=== PATIENT | female | born 2000 | race Caucasian/White ===

== ENCOUNTER 2021-11-27 14:52 | Emergency (ER) | payer OTHER ==
--- OUTSIDE RECORDS SUMMARY | 2021-11-27 14:55 | XMS REPORT | Continuity of Care Document ---
:2000 Author Organization [facility] t Address [address] [place] [address] Care Team Providers Name Role Phone LACIE SUTHERLAND Primary Care Physician Unavailable nathan Attending Clinician Unavailable VENTURA BARRAZA Attending Clinician Unavailable Chi Constantino Attending Clinician Unavailable ALMA SUTHERLAND Attending Clinician Unavailable Alma Sutherland DO Attending Clinician BETH RENEE Attending Clinician Unavailable Mahendra Johnson MD Attending Clinician Stephany Dee Attending Clinician Unavailable Mirian Summers Attending Clinician Unavailable Cortez Salomon Attending Clinician [phone] Sarahi Platt Attending Clinician Unavailable MAL REBOLLAR Attending Clinician Unavailable Chi Constantino Admitting Clinician Unavailable Cortez Salomon Unavailable [phone] Payers Payer Name Policy Type Policy Number Effective Date Expiration Date S chandra [facility] [id number] 2020 00:00:00 [facility] P [id number] COMM PLAN - MANAGED MEDICAID Problems Condition Condition Condition Status Onset Resolution Last Treating Co mments Source Name Details Category Date Date Treatment Clinician Date Supervisio Supervisio Disease Active U nivers n of other n of other 8- it y of normal normal 00:00: [place] 00 [facility] 13 weeks 13 weeks Disease Active Unive rs gestation gestation 8-26 ity of of of 00:00: [place] 00 [facility] Sasha of Condition Active 2020-01-05 Matias Salomon vagina 12-30 16:24:47 Cortez Bergeri 00:00: ty 00 Health Std Condition Active 2020-01-05 Melissa Salomon exposure 12-30 16:24:47 Cortez Commu ni 00:00: ty 00 Health Dysuria Condition Active 2020-01-05 Gilda Salomon egacy 12-30 16:24:47 Cortez Bergeri 00:00: ty 00 Health Depo Condition Active 2020-01-05 Melissa Salomon Provera 12-30 16:24:47 Cortez Commun i contracept 00:00: ty john, 00 Health initial prescripti on Overweight Condition Active 2020-01-05 Matias Salomon 12-30 16:24:47 Cortez Bergeri 00:00: ty 00 Health ASCUS with ASCUS with Disease Active Overview : Univers positive positive Formattin ity of high risk high risk g of this [place] HPV HPV note Medical cervical cervical might be Bran ch different from the original. Repeat postpartu m ASCUS with ASCUS with Disease Active Overview : Univers positive positive Formattin ity of high risk high risk g of this [place] HPV HPV note Medical cervical cervical might be Bran ch different from the original. Repeat postpartu m Allergies, Adverse Reactions, Alerts Allergy Allergy Status Severity Reaction(s) Onset Inactive Treating Comm ents Source Name Type Date Date Clinician No Known DA Active U 2020-04 [facility] All[facility]ie 2-30 [place] [facility] 00:[facility]: Health [address] NO KNOWN Drug Active Univers ALLERGIE Class ity of S [facility] Social History Social Habit Start Date Stop Date Quantity Comments Source ASSERTION 2020-09-21 University of 00:00:00 [facility] Exposure to Not sure University of SARS-CoV-2 [facility] (event) Branch Tobacco use and 2020-12-09 2020-12-09 Never used Universit y of exposure 00:00:00 00:00:00 [facility] Alcohol intake 2020-12-09 2020-12-09 Lifetime University of 00:00:00 00:00:00 non-drinker [place] [facility] (finding) Branch time of call 2020-03-01 2020-03-01 03/01/2020 11:52 [facility] 11:51:55 11:51:55 AM Health Ever had sexual 2019-12-31 2019-12-31 Yes [facility]ity intercourse? 11:30:08 11:30:08 Health drug use, illicit 2019-12-31 2019-12-31 Never [facility] 11:30:08 11:30:08 Health alcohol use 2019-12-31 2019-12-31 Currently [facility] ity 11:30:08 11:30:08 Health is there any 2019-12-31 2019-12-31 No [facility] nity chance that you 11:30:08 11:30:08 Health could be ? if the patient is 2019-12-31 2019-12-31 No [facility] using/has used a 11:30:08 11:30:08 Health vaping item, Current, Former, Never Used, Not asked condom use 2019-12-31 2019-12-31 Sometimes [facility] ty 11:30:08 11:30:08 Health Sex Assigned At [birth year] Universit y of 00:00:00 00:00:00 [facility] Smoking Status Start Date Stop Date Source Never smoker [facility] Branch Medications Ordered Filled Start Stop Current Ordering Indication Dosage Frequency Signature Comments Components Source Medication Medication Date Date Medication? Clinician (SIG) Name Name pramoxine 2020-04 Yes [id number] Insert Un eileen (PROCTOFOAM 1-13 into ity of ) 1 % foam 00:00: rectum [place] 00 every 2 Medical (two) Branch hours as needed for Rectal itching/pa in. Yes Take by [facility] vit 8-26 mouth. ity of calc,iron,f 09:25: [place] [address] Medical ( Branch VITAMIN ORAL) Yes Take by [employer] vit 8-26 mouth. ity of calc,iron,f 09:25: [place] [address] Medical ( Branch VITAMIN ORAL) (NYSTATIN) Yes Cortez apply to [facility] [phone] Aime Bergeri UNIT/GM 00:00: Twice a ty CREA 00 Day x 7 Health days DIFLUCAN 2020-0 Yes [place]ez 1 tab By [facility] (FLUCONAZOL 12-30 Salomon Mouth x 1 C ommuni E) 150 MG 00:00: for ty TABS 00 vaginal Health yeast PYRIDIUM 2020-0 Yes Cortez 1{Table 3xD 1 tab By [facility] (PHENAZOPYR 9-16 Salomon t} Mouth Commu ni IDINE HCL) 00:00: Three ty 200 MG TABS 00 Times a Healt h Day x 2 days KEFLEX 2020-0 Yes Cortez 1 tab By [facility] (CEPHALEXIN 12-30 Salomon Mouth Commu ni ) 500 MG 00:00: Three ty CAPS 00 Times a Health Day x 5 days DEPO-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 Heart rate 2021-02-27 00:28:00 101 /min [facility] Body temperature 2021-02-27 00:28:00 36.56 Analilia [facility] Respiratory rate 2021-02-27 00:28:00 18 /min [facility] Body weight 2021-02-27 00:28:00 68.04 kg [facility] BMI 2021-02-27 00:28:00 29.29 kg/m2 [facility] Oxygen saturation in 2021-02-27 00:28:00 100 /min [facility] Arterial blood by [facility] Pulse oximetry Branch Systolic blood 2020-12-27 05:17:55 104 mm[Hg] [facility] Diastolic blood 2020-12-27 05:17:55 66 mm[Hg] [facility] 2020-12-27 05:17:55 106 /min [facility] Body temperature 2020-12-27 05:17:55 37 Analilia [facility] Respiratory rate 2020-12-27 05:17:55 18 /min [facility] Oxygen saturation in 2020-12-27 05:17:55 98 /min [facility] blood by [facility] Pulse oximetry Branch Body height 2020-12-27 02:31:56 152.4 cm [facility] Body weight 2020-12-27 02:31:56 63.504 kg [facility] BMI 2020-12-27 02:31:56 27.34 kg/m2 [facility] blood pressure, 2019-12-31 11:30:08 72 mm[Hg] [facility] diastolic Health blood pressure, 2019-12-31 11:30:08 105 mm[Hg] [facility] systolic Health oxygen saturation, 2019-12-31 11:30:08 98 /min Melissa marquez [facility] oximetry Health pulse rate 2019-12-31 11:30:08 78 /min [facility] temperature site 2019-12-31 11:30:08 oral [facility] Health temperature E&M 2019-12-31 11:30:08 98.2 [degF] [facility] Health weight E&M 2019-12-31 11:30:08 139.13 [lb_av] [facility] weight in [facility] 2019-12-31 11:30:08 63.24 kg L egacy [facility]M Health height in 2019-12-31 11:30:08 152.40 [facility] Procedures Procedure Date / Time Performing Clinician Source Performed [id number] 2021-06-02 00:00:00 DUOCA [facility] NOTICE OF PRIVACY 2021-02-27 00:02:02 Doctor Unassigned, No [facility] PRACTICES Name Medical Branch CONSENT/REFUSAL FOR 2021-02-27 00:00:13 Doctor Unassigned, No [facility] [place] [place] [facility] AND TREATMENT Name Medical Branch CBC WITH DIFF 2020-12-27 03:54:00 Mahendra Johnson Mathews o f [facility] ABORH CONFIRMATION (LAB 2020-12-27 03:50:00 Mahendra Johnson [facility] ONLY) Medical Branch CT CERVICAL SPINE WO 2020-12-27 03:48:43 Mahendra Johnson [facility] CONTRAST [facility] CT THORACIC SPINE WO 2020-12-27 03:48:43 Mahendra Johnson [facility] HB ABO GROUPING 2020-12-27 03:15:00 Mahendra Johnson [facility] URINALYSIS 2020-12-27 03:12:00 Mahendra Johnson [facility] COVID-19 (ID NOW RAPID 2020-12-27 03:12:00 Mahendra Johnson [facility] TESTING) Medical Branch LIPASE 2020-12-27 02:44:00 Mahendra Johnson [facility] COMP. METABOLIC PANEL 2020-12-27 02:44:00 Mahendra Johnson [facility] ([id number]) [facility] PROTHROMBIN TIME / INR 2020-12-27 02:44:00 Mahendra Johnson [facility] ACTIVATED PARTIAL 2020-12-27 02:44:00 Alex Mahendra [facility] THRMPLAS RADHA [facility] Encounters Start End Encounter Admission Attending Care Care Encounter Source Date/Time Date/Time Type Type Clinicians Facility Department ID 2021-02-[address] [facility] [id number] Univers 22:07:35 [facility] 2021-01-30 Outpatient nathan [facility] [id number] [facility] 14:19:11 [id number] [facility] 2021-01-27 Outpatient [facility] [id number] [facility] 19:49:23 [id number] [facility] 2021-09-05 2021-09-05 Outpatient VENTURA BARRAZA [id number] Elyssa 14:30:00 14:30:00 Seybol d 2021-06-01 2021-06-04 Inpatient EM Xydas, HCANW OBPP [id number] [facility] 22:58:00 12:45:00 Chi [id number] [facility] 2021-06-01 2021-06-01 Inpatient EM Xydas, HCANW OBPP [id number] [facility] 22:58:00 22:58:00 Chi 18 [facility] 2021-04-14 2021-04-14 Emergency EM Dougie, HCANW LORRAINE [id number] [facility] 10:58:00 13:06:00 Chi [id number] [facility] are [facility] 2021-02-26 2021-02-26 Emergency X ENA [facility] ERT [id number] Univers 18:21:00 18:57:[address] [facility] 2021-02-26 2021-02-26 [facility] [id number] Univers 18:21:00 18:57:00 Alma WHITE [id number] ity [facility] [id number] [facility] [id number] [address] 2021-01-28 2021-01-28 Outpatient R [facility] [id number] Univers 09:00:00 09:00:[id number] [facility] 2021-01-28 2021-01-28 Outpatient P [facility] [id number] Univers 09:00:00 [facility] 2021-01-07 2021-01-07 [id number] Univers 08:15:00 08:15:[id number] [facility] 2020-12-26 2020-12-27 Emergency [facility] [id number] Univers 21:31:00 01:31:00 Mahendra White [id number] i ty [facility] [id number] [facility] [id number] [address] 2020-12-13 2020-12-13 Outpatient R [facility] [id number] Univers 08:15:00 08:15:00 [id number] [facility] 2020-12-13 2020-12-13 Outpatient R [facility] [id number] Univers 08:15:00 08:15:00 ity [facility] 2020-12-09 2020-12-09 Outpatient [facility] [id number] Univers 09:30:00 09:30:00 BETH meseretdarrell [facility] 2020-03-01 2020-03-01 Office ANGELICA Dee Encounter / Legacy 00:00:00 00:00:00 Visit Stephany [id number] Co mmuni [id number] Health 2020-03-01 2020-03-01 Office Stephany Dee [facility] Encounter/ Legacy 00:00:00 00:00:00 Visit Mirian Summers [id number] Communi [id number] ty Health 2019-12-31 2019-12-31 Office ANGELICA Salomon Encounter/ Legacy 00:00:00 00:00:00 Visit Cortez [id number] Com carmnecita [id number] ty Health 2019-12-31 2019-12-31 Office ANGELICA Salomon Encounter/ Legacy 00:00:00 00:00:00 Visit Cortez [id number] Com carmencita [id number] [facility] 2019-12-31 2019-12-31 Office ANGELICA Salomon Encounter/ Legacy 00:00:00 00:00:00 Visit Cortez [id number] Com carmencita [id number] ty [facility] 2019-12-31 2019-12-31 Office Cortez Salomon [facility] En counter/ Legacy 00:00:00 00:00:00 Visit Sarahi Platt [id number] Communi [id number] [facility] 2019-06-25 2019-06-26 Emergency E [facility] [id number] [facility] 19:18:00 00:21:00 MAL 2019-05-07 2019-05-07 Emergency E [id number] 22:18:00 22:18:00 l Reginaldo Mendez l Results Test Description Test Time Test Comments Results Result Comments Source CBC W/AUTO DIFF 2021-06-03 05:38:00 Test Item Value Reference Range Interpretation Comme nts WHITE BLOOD CELL (test code = WBC) 12.3 x10 3/uL 3.2-11.5 H RED BLOOD CELL (test code = RBC) 2.91 x10(6)/m 3.70-5.10 L HEMOGLOBIN (test code = HGB) 8.0 g/dL 12.0-15.0 L HEMATOCRIT (test code = HCT) 24.7 % 35.7-44.8 L MEAN CELL VOLUME (test code = MCV) 85 fL 80-100 N MEAN CELL HGB (test code = MCH) 27.5 pg 26.2-33.8 N MEAN CELL HGB CONCENTRATION (test code = MCHC) 32.4 g/dL 30.0-34 .0 N RED CELL DISTRIBUTION WIDTH (test code = RDW) 16.1 % 11.3-14. 5 H PLATELET COUNT (test code = PLT) 143 x10 3/uL 130-408 N MEAN PLATELET VOLUME (test code = MPV) 12.1 fL 8.6-12.6 N NEUTROPHIL % (test code = NT%) 76.2 % 40.0-70.0 H IMMATURE GRANULOCYTE % (test code = IG%) 1.0 % 0.0-2.0 N LYMPHOCYTE % (test code = LY%) 14.2 % 20-40 L MONOCYTE % (test code = MO%) 7.4 % 1-10 N EOSINOPHIL % (test code = EO%) 1.0 % 0.0-5.0 N BASOPHIL % (test code = BA%) 0.2 % 0.0-1.0 N NUCLEATED RBC % (test code = NRBC%) 0.0 % 0.0-0.9 N NEUTROPHIL # (test code = NT#) 9.4 x10 3/uL 1.6-7.2 H LYMPHOCYTE # (test code = LY#) 1.75 x10 3/uL 1.1-2.7 N MONOCYTE # (test code = MO#) 0.9 x10 3/uL 0.3-0.8 H EOSINOPHIL # (test code = EO#) 0.1 x10 3/uL 0.0-0.5 N BASOPHIL # (test code = BA#) 0.0 x10 3/uL 0.0-0.1 N RAPID PLASMA [id number] 07:13:00 Test Item Value Reference Range Interpretation Comments RAPID PLASMA REAGIN (test code = NEGATIVE NEGATIVE RPR) AG HEPATITIS B [id number] 04:21:00 Test Item Value Reference Range Interpretation Comments AG HEPATITIS B SURFACE (test code = NEGATIVE NEGATIVE HBSAG) AB HIV 1 04:21:00 Test Item Value Reference Range Interpretation Comments AB HIV 1 2 (test code = XPN56LT) NEGATIVE NEGATIVE AB RUBELLA [id number] 03:00:00 Test Item Value Reference Range Interpretation Comments AB RUBELLA IGG POSITIVE NEGATIVE A Interpretive Data: Rubella (test code = IgG Concentrati ons between RUBGAB) >= 10 IU/mL and < 15 IU/mL are considered indeterminate f or determining imm unity to rubella. Studie s suggest that vaccinated individuals hav ing these low levels of a nti-rubella IgG do show a s econdary immune response following re-vaccination but have not been challe nged with wild rubella [place] (9). A follow-up sampl e should be taken to furthe r evaluate immune status. If the repeat sample i s still indeterminate, the sample may require carlos ting by alternate metho ds CBC W/AUTO [id number] 02:02:00 Test Item Value Reference Range Interpretation Comments WHITE BLOOD CELL (test code = 11.4 x10 3/uL 3.2-11.5 N WBC) RED BLOOD CELL (test code = 3.24 x10(6)/m 3.70-5.10 L RBC) HEMOGLOBIN (test code = HGB) 9.0 g/dL 12.0-15.0 L HEMATOCRIT (test code = HCT) 27.4 % 35.7-44.8 L MEAN CELL VOLUME (test code = 85 fL 80-100 N MCV) MEAN CELL HGB (test code = MCH) 27.8 pg 26.2-33.8 N MEAN CELL HGB CONCENTRATION 32.8 g/dL 30.0-34.0 N (test code = MCHC) RED CELL DISTRIBUTION WIDTH 16.2 % 11.3-14.5 H (test code = RDW) PLATELET COUNT (test code = 193 x10 3/uL 130-408 N PLT) MEAN PLATELET VOLUME (test code 12.0 fL 8.6-12.6 N = MPV) NEUTROPHIL % (test code = NT%) 72.6 % 40.0-70.0 H LYMPHOCYTE % (test code = LY%) 17.2 % 20-40 L MONOCYTE % (test code = MO%) 7.5 % 1-10 N EOSINOPHIL % (test code = EO%) 0.9 % 0.0-5.0 N BASOPHIL % (test code = BA%) 0.4 % 0.0-1.0 N NUCLEATED RBC % (test code = 0.0 % 0.0-0.9 N NRBC%) NEUTROPHIL # (test code = NT#) 8.3 x10 3/uL 1.6-7.2 H LYMPHOCYTE # (test code = LY#) 1.95 x10 3/uL 1.1-2.7 N MONOCYTE # (test code = MO#) 0.9 x10 3/uL 0.3-0.8 H EOSINOPHIL # (test code = EO#) 0.1 x10 3/uL 0.0-0.5 N IMMATURE GRANULOCYTE % (test 1.4 % 0.0-2.0 N code = IG%) BASOPHIL # (test code = BA#) 0.0 x10 3/uL 0.0-0.1 N COVID 19 Asymptomatic IH [id number] 23:53:00 Test Item Value Reference Range Interpretation Comments COVID 19 Asymptomatic Negative Negative Negati ve results should IH AG (test code = be treate d as COVNONPUIAG) presumptive andconfirmed wi th a molecular assay , if necessary for patientmanageme nt. Negative result s do not rule out COVID- 19 andshould not b e used as the sole bas is for treatment orpat ient management deci sions, including infec tion controldecision s. Negative result s should be considered i n thecontext of a patient's recen t exposures, hist ory and thepresence of clnical signs and sympt oms consistent withCOVID-19.Sp ecimen Source: Nasopha ryngeal (SURGICAL PATHOLOGIST) Swab URINALYSIS [id number] 11:49:00 Test Item Value Reference Range Interpretation Comments UA COLOR (test code = Straw YELLOW COLU) UA APPEARANCE (test Clear CLEAR code = APPU) UA GLUCOSE DIPSTICK NEGATIVE NEGATIVE (test code = DGLUU) UA BILIRUBIN DIPSTICK NEGATIVE NEGATIVE (test code = BILU) UA KETONE DIPSTICK NEGATIVE NEGATIVE (test code = KETU) UA SPECIFIC GRAVITY 1.006 1.001-1.030 (test code = SGU) UA BLOOD DIPSTICK (test 3+ NEGATIVE code = PAWEL) UA PH DIPSTICK (test 8.0 5.0-9.0 code = KESHAWN) UA PROTEIN DIPSTICK NEGATIVE NEGATIVE (test code = PROU) UA UROBILINOGEN NEGATIVE See_Comment [Automated message] DIPSTICK (test code = The sy stem which URO) generated this result transmitted ref erence range: <=1.0. T he reference range was not used to int erpret this result as normal/abnormal . UA NITRITE DIPSTICK NEGATIVE NEGATIVE (test code = NAEEM) UA ASCORBIC ACID NEGATIVE DIPSTICK (test code = AAU) UA LEUKOCYTE ESTERASE NEGATIVE NEGATIVE DIPSTICK (test code = LEUU) UA WBC (test code = 0-5 /HPF 0-5 WBCU) UA RBC (test code = TNTC /HPF 0-5 A RBCU) UA EPITHELIAL CELLS RARE /LPF NONE-FEW (test code = EPIU) UA BACTERIA (test code None /HPF NONE SEEN = BACU) UA MUCUS (test code = 1+ /LPF NONE SEEN MUCU) ABORH Confirmation (Lab Only)2020-12-27 04:41:05 Test Item Value Reference Range Interpretation Comments ABO & RH (test code O Negative Performe d at [facility] = 20) Laboratory Serv [facility] [address] [place] [phone] Free: [phone] A No. [id number] [facility] WITH [id number] 04:13:06 Test Item Value Reference Range Interpretation Comments WBC (test code = See_Comment [Automated 4522-2) message] The sy stem which generated this result transmitted reference range : 4.30 - 11.10 10*3/?L. The reference range was not used to interpret this result as normal/abnormal . RBC (test code = See_Comment L [Automated 607-8) message] The sy stem which generated this result transmitted reference range : 3.93 - 5.25 10*6/?L. The reference range was not used to interpret this result as normal/abnormal . HGB (test code = 10.1 g/dL 11.6-15.0 L 718-7) HCT (test code = 28.4 % 35.7-45.2 L 4544-3) MCV (test code = 86.1 fL 80.6-95.5 787-2) MCH (test code = 30.6 pg 25.9-32.8 785-6) MCHC (test code = 35.6 g/dL 31.6-35.1 H 786-4) RDW-SD (test code = 42.0 fL 39.0-49.9 99138-5) RDW-CV (test code = 13.6 % 12.0-15.5 788-0) PLT (test code = See_Comment [Automated 777-3) message] The sy stem which generated this result transmitted reference range : 166 - 358 10*3/ ?L. The reference r francheska was not used to interpret this result as normal/abnormal . MPV (test code = 11.6 fL 9.5-12.9 57520-0) NRBC/100 WBC (test See_Comment [Automat ed code = 8618958825) message] The system which generated this result transmitted reference range : 0.0 - 10.0 /100 WBCs. The refer ence range was not u sed to interpret th is result as normal/abnormal . NRBC x10^3 (test code <0.01 See_Comment [Auto mated = 3013103236) message] The s ystem which generated this result transmitted reference range : 10*3/?L. The reference range was not used to interpret this result as normal/abnormal . GRAN MAT (NEUT) % 71.1 % (test code = 770-8) IMM GRAN % (test code 1.00 % = 3494116982) LYMPH % (test code = 20.2 % 736-9) MONO % (test code = 6.7 % 5905-5) EOS % (test code = 0.7 % 713-8) BASO % (test code = 0.3 % 706-2) GRAN MAT x10^3(ANC) 7.16 10*3/uL 1.88-7.09 H (test code = 5004517128) IMM GRAN x10^3 (test 0.10 10*3/uL 0.00-0.06 H code = 4200783175) LYMPH x10^3 (test code 2.04 10*3/uL 1.32-3.29 = 731-0) MONO x10^3 (test code 0.68 10*3/uL 0.33-0.92 = 742-7) EOS x10^3 (test code = 0.07 10*3/uL 0.03-0.39 711-2) BASO x10^3 (test code 0.03 10*3/uL 0.01-0.07 = 704-7) Lab Interpretation Abnormal (test code = 16298-5) [facility] THRM[facility] [id number] 04:07:28 Test Item Value Reference Range Interpretation Comments APTT Patient (test See_Comment [Automat ed code = 3173-2) message] The system which generated this result transmitted reference range : 23 - 38 Seconds . The reference range was not used to interpr et this result as normal/abnormal . JOSE GUADALUPE (test code = JOSE GUADALUPE) The [facility] patient population mean normal value for aPTT is 30 seconds. Lab Interpretation Normal (test code = 05030-4) [facility] / [id number] 04:04:25 Test Item Value Reference Range Interpretation Comments PROTIME PATIENT (test See_Comment [Auto mated message] code = 5964-2) The system wh ich generated this result transmitted ref erence range: 12.0 - 1 4.7 Seconds. The re ference range was not u sed to interpret this result as normal/abnor mal. INR (test code = 6301-6) Nor mal INR <1.1; Warfarin Therap eutic range 2.0 to 3. 0 or 2.5 to 3.5, dep ending upon the indica tions. Lab Interpretation (test Normal code = 59836-5) [facility] Hospital[facility] and Screen - ONCE [id number] 04:02:45 Test Item Value Reference Range Interpretation Comments ABO & RH (test code O Negative Performe d at [facility] = 20) Laboratory Serv [facility] [address] [place], [place] [id number] Free: [phone] A No. [id number] IAT (test code = Negative Performed a t [facility] 1185) Laboratory Serv [facility] [address] [place], [place] [address]Toll Free: [phone] A No. [id number] [facility]. METABOLIC PANEL (89398)2020-12-27 03:49:44 Test Item Value Reference Range Interpretation Comments NA (test code = 137 mmol/L 135-145 9878720140) K (test code = 3.7 mmol/L 3.5-5.0 4115866337) CL (test code = 107 mmol/L 98-108 4387062550) CO2 TOTAL (test code = 23 mmol/L 23-31 3083934410) AGAP (test code = 2-16 3137843826) BUN (test code = 9 mg/dL 7-23 2376462042) GLUCOSE (test code = 92 mg/dL 70-110 7708290446) CREATININE (test code = 0.46 mg/dL 0.50-1.04 L 2019021794) TOTAL BILI (test code = 0.4 mg/dL 0.1-1.5 1850818805) CALCIUM (test code = 9.1 mg/dL 8.6-10.6 [id number]) T PROTEIN (test code = 7.5 g/dL 6.3-8.2 8695287167) ALBUMIN (test code = 3.9 g/dL 3.5-5.0 2602491723) ALK PHOS (test code = 79 U/L 34-122 6344626411) ALTv (test code = 26 U/L 5-35 1742-6) AST(SGOT) (test code = 43 U/L 13-40 H 8702104273) eGFR (test code = mL/min/1.73m2 5908140732) JOSE GUADALUPE (test code = JOSE GUADALUPE) Association of Glomerular Filtration Rate (GFR) and Staging of Kidney Disease* + --+ --+ ------+| GFR (mL/min/1.73 m2) ?| With Kidney Damage ?| ?Without Kidney Damage+ --------+ --------+ +| ?>90 ?| ?Stage one ?| ? Normal ?+ ---+ ---+ -------+| ?60-89 ?| ?Stage two ?| ? Decreased GFR ? + --+ --+ ------+| ?30-59 ?| ?Stage three ?| ? Stage three ? + --+ --+ ------+| ?15-29 ?| ?Stage four ? | ? Stage four ?+ ---+ ---+ -------+| ?<15 (or dialysis) ? ?| ?Stage five ? | ? Stage five ?+ ---+ ---+ -------+ *Each stage assumes the associated GFR level has been in effect for at least three months. ?Stages 1 to 5, with or without kidney disease, indicate chronic kidney disease. Notes: Determination of stages one and two (with eGFR >59mL/min/1.73 m2) requires estimation of kidney damage for at least three months as defined by structural or functional abnormalities of the kidney, manifested by either:Pathological abnormalities or Markers of kidney damage (including abnormalities in the composition of the blood or urine or abnormalities in imaging tests). Lab Interpretation Abnormal (test code = 19409-5) [facility]44 Test Item Value Reference Range Interpretation Comments LIPASE (test code = 8667933851) 55 U/L 0-220 Lab Interpretation (test code = Normal 13626-0) [facility] [id number] 12:19:00 Test Item Value Reference Range Interpretation Comments urine culture (test 1,000-9,000 CFU/ML of A code = 630-4) Group B Streptococcus iso... [facility]agin [facility], [id number] 12:19:00 Test Item Value Reference Range Interpretation Comments rapid plasma reagin antibody, NON-REACTIVE NON-REACTIVE N serum (test code = 5291-0) [facility], Signal to [id number] 12:19:00 Test Item Value Reference Range Interpretation Comments Hepatitis C Antibody, Signal to Cut-Off 0.02 <1.00 N (test code = 365432) [facility], [id number] 12:19:00 Test Item Value Reference Range Interpretation Comments hepatitis C antibody, serum NON-REACTIVE NON-REACTIVE N (test code = 5199-5) [facility] B surface [id number] 12:19:00 Test Item Value Reference Range Interpretation Comments hepatitis B surface antigen NON-REACTIVE NON-REACTIVE N (test code = 79) [facility] (Chemiluminescent Microparticle Immuno Assay) 2019-12-31 12:19:00 Test Item Value Reference Range Interpretation Comments HIV-CMIA (Chemiluminescent NON-REACTIVE NON-REACTIVE N Microparticle Immuno Assay) (test code = 700992) [facility] [id number] 12:19:00 Test Item Value Reference Range Interpretation Comments Neisseria gonorrhoeae DNA probe NOT DETECTED NOT DETECTED N (test code = 97732-3) [facility] [id number] 12:19:00 Test Item Value Reference Range Interpretation Comments chlamydia DNA probe (test code = NOT DETECTED NOT DETECTED N 96887-2) [facility], urine, [id number] 11:30:08 Test Item Value Reference Range Interpretation Comments beta HCG, urine, semiquantitative negative (test code = 2106-3) [facility], date of [id number] 11:30:08 Test Item Value Reference Range Interpretation Comments HIV test, date of last (test code = 2018 56051) [facility]"
[2021-11-27 15:55] LABS: Urine Blood 3+ (Negative); Urine Glucose Negative (Negative); Urine Protein 1+ (Negative); Urine Specific Gravity >=1.030 (1.005-1.030)
--- NOTE | 2021-11-27 16:41 | ER ---
Nurse's Notes [facility] Name: Niecy Sibley Age: 21 yrs Sex: Female : 2000 Arrival Date: 11/27/2021 Time: 14:55 Bed Waiting Private MD: Diagnosis: UTI/ Urinary tract infection, site not specified Presentation: 11/27 15:44 Chief complaint: Patient states: Pt reports urinary hesitancy, frequency, pain with kb3 urination, lower pelvic pain x3 days. Coronavirus screen: Vaccine status: Patient reports being unvaccinated. Client denies travel out of the [place] in the last 14 days. At this time, the client does not indicate any symptoms associated with coronavirus-19. Ebola Screen: Patient negative for fever greater than or equal to 101.5 degrees Fahrenheit, and additional compatible Ebola Virus Disease symptoms Patient denies exposure to infectious person. Patient denies travel to an Ebola-affected area in the 21 days before illness onset. No symptoms or risks identified at this time. Initial Sepsis Screen: Does the patient meet any 2 criteria? No. Patient's initial sepsis screen is negative. Does the patient have a suspected source of infection? Yes: Dysuria/Frequency/Urgency/UTI. Risk Assessment: Do you want to hurt yourself or someone else? Patient reports no desire to harm self or others. Onset of symptoms was November 24, 2021. 15:44 Method Of Arrival: Ambulatory kb3 15:44 Acuity: NORA 4 kb3 Triage Assessment: 15:46 General: Appears in no apparent distress. Behavior is calm, cooperative. Pain: kb3 Complains of pain in suprapubic area Pain does not radiate. Pain currently is 6 out of 10 on a pain scale. Quality of pain is described as pressure, sharp, Pain began 2-3 days ago. Is intermittent. : Reports inability to void, pain urgency, urinary frequency. [employer]: 15:46 LMP 11/24/2021 kb3 Historical: - Allergies: 15:46 No Known Allergies; kb3 - Home Meds: 15:46 None [Active]; kb3 - PMHx: 15:46 None; kb3 - PSHx: 15:46 None; kb3 - Immunization history:: Adult Immunizations up to date, Client reports having NOT received the Covid vaccine. Last tetanus immunization: up to date. - Social history:: Smoking status: Patient denies any tobacco usage or history of. Patient uses alcohol, occasionally. Patient/guardian denies using street drugs. Screenin:59 Abuse screen: Denies threats or abuse. Denies injuries from another. Nutritional kb3 screening: No deficits noted. Tuberculosis screening: No symptoms or risk factors identified. Fall Risk None identified. Assessment: 16:58 General: Pt seen by provider in triage, follow up and dispo from lobby. kb3 Vital Signs: 15:44 BP 123 / 91; Pulse 85; Resp 18; Temp 98.1; Pulse Ox 100% ; Weight 68.04 kg; Height 5 kb3 ft. 0 in. (152.40 cm); Pain 6/10; 15:44 Body Mass Index 29.29 (68.04 kg, 152.40 cm) kb3 ED Course: 14:55 Patient arrived in ED. rg4 15:00 Sánchez Sanchez PA is PHCP. kb3 15:00 Lamin Thorpe MD is Attending Physician. kb3 15:46 Triage completed. kb3 15:46 Arm band placed on left wrist. kb3 16:59 Patient has correct armband on for positive identification. kb3 16:59 No provider procedures requiring assistance completed. Patient did not have IV access kb3 during this emergency room visit. Administered Medications: No medications were administered Medication: 17:00 VIS not applicable for this client. kb3 Outcome: 16:41 Discharge ordered by . [facility] 16:59 Discharged to home ambulatory. kb3 16:59 Condition: stable 16:59 Discharge instructions given to patient, Instructed on discharge instructions, follow up and referral plans. medication usage, Demonstrated understanding of instructions, follow-up care, medications. 17:00 Patient left the ED. kb3 Signatures: Sánchez Sanchez PA PA jmm Garcia, Rubi rg4 Nicole Conteh, RN RN kb3
--- NOTE | 2021-11-27 16:41 | EDPHYS ---
Physician Documentation [facility] Name: Niecy Sibley Age: 21 yrs Sex: Female : 2000 Arrival Date: 11/27/2021 Time: 14:55 Bed Waiting Private MD: MICAH Physician Lamin Thorpe HPI: 11/27 16:33 This 21 yrs old Female presents to ER via Ambulatory with complaints of Urinary Problem.jmm 16:33 The patient presents with urinary symptoms. Onset: The symptoms/episode began/occurred jmm gradually, 3 day(s) ago. Modifying factors: The symptoms are alleviated by nothing, the symptoms are aggravated by nothing. Associated signs and symptoms: Pertinent negatives: fever. This is a 21 year old female with no chronic medical conditions that presents to the ED with complaints of painful urination, increased frequency. Denies fever, back pain, vomiting. . BARK TANNER: 15:46 LMP 11/24/2021 kb3 Historical: - Allergies: 15:46 No Known Allergies; kb3 - Home Meds: 15:46 None [Active]; kb3 - PMHx: 15:46 None; kb3 - PSHx: 15:46 None; kb3 - Immunization history:: Adult Immunizations up to date, Client reports having NOT received the Covid vaccine. Last tetanus immunization: up to date. - Social history:: Smoking status: Patient denies any tobacco usage or history of. Patient uses alcohol, occasionally. Patient/guardian denies using street drugs. ROS: 16:33 Constitutional: Negative for fever, chills, and weight loss, Cardiovascular: Negative jmm for chest pain, palpitations, and edema, Respiratory: Negative for shortness of breath, cough, wheezing, and pleuritic chest pain. 16:33 All other systems are negative. Exam: 16:33 Constitutional: This is a well developed, well nourished patient who is awake, alert, jmm and in no acute distress. Head/Face: atraumatic. Eyes: EOMI, no conjunctival erythema appreciated ENT: Moist Mucus Membranes Neck: Trachea midline, Supple Chest/axilla: Normal chest wall appearance and motion. Cardiovascular: Regular rate and rhythm. No edema appreciated Respiratory: Normal respirations, no respiratory distress appreciated Abdomen/GI: Non distended Back: Normal ROM Skin: General appearance color normal MS/ Extremity: Moves all extremities, no obvious deformities appreciated, no edema noted to the lower extremities Neuro: Awake and alert Psych: Behavior is normal, Mood is normal, Patient is cooperative and pleasant Vital Signs: 15:44 BP 123 / 91; Pulse 85; Resp 18; Temp 98.1; Pulse Ox 100% ; Weight 68.04 kg; Height 5 kb3 ft. 0 in. (152.40 cm); Pain 6/10; 15:44 Body Mass Index 29.29 (68.04 kg, 152.40 cm) kb3 MDM: 16:33 Patient medically screened. [facility] 16:41 Data reviewed: vital signs, nurses notes. Counseling: I had a detailed discussion with [facility] the patient and/or guardian regarding: the historical points, exam findings, and any diagnostic results supporting the discharge/admit diagnosis, lab results, the need for outpatient follow up, to return to the emergency department if symptoms worsen or persist or if there are any questions or concerns that arise at home. 11/27 15:56 Order name: Urine Dipstick-Ancillary; Complete Time: 16:33 EDMS Administered Medications: No medications were administered Disposition Summary: 11/27/21 16:41 Discharge Ordered Location: Home [facility] Condition: Stable [facility] Diagnosis - UTI/ Urinary tract infection, site not specified [facility] Followup: [facility] - With: Private Physician - When: 2 - 3 days - Reason: Recheck today's complaints, Continuance of care, Re-evaluation by your physician Discharge Instructions: - Discharge Summary Sheet [facility] - Urinary Tract Infection, Adult [facility] Forms: - Medication Reconciliation Form [facility] - Thank You Letter [facility] - Antibiotic Education [facility] - Prescription Opioid Use [facility] Prescriptions: - Cephalexin 500 mg Oral Capsule - take 1 capsule by ORAL route every 8 hours for 10 days; 30 capsule; Refills: 0, [facility] Product Selection Permitted Signatures: Sánchez Sanchez PA PA Nicole Morris, RN RN kb3
[2021-11-27 18:36] VITALS: BP 123/91; TEMP 98.1; O2SAT 100
== END 2021-11-27 17:00 | disposition home or self-care (01) ==
LOC: ER 14:52
DX: N39.0 Urinary tract infection, site not specified (principal)
CPT/HCPCS: 81003; 99281

== ENCOUNTER → 2023-07-06 | Emergency (ER) | payer OTHER ==
[~2023-07-06] MED LIST: LORazepam 2 MG/ML VIAL ONE; NA CHLORIDE 0.9% 1,000 ML ONE
--- OUTSIDE RECORDS SUMMARY | 2023-07-06 22:18 | XMS REPORT | Continuity of Care Document ---
Author Name Unknown Address [address] [facility] [address] [place] [address] [facility] thconnect Address [address] [facility] [address] [place] [address] Care Team Providers Care [employer] Name Role Phone LACIE SUTHERLAND Primary Care Physician Unavail able VENTURA BARRAZA Attending Clinician Unavailab Chi Devlin Attending Clinician Unavailable ALMA SUTHERLAND Attending Clinician Unavailab Alma Mann DO Attending Clinician [phone] Mahendra Johnson MD Attending Clinician [phone] Doctor Unassigned, [place] Attending Clinician U Triny Machado MD Attending Clinician [phone] TRINY DAMON Attending Clinician Unavailable Stephany Dee Attending Clinician UnavailMirian Villegas Attending Clinician Unavailable Cortez Salomon Attending Clinician [phone] Sarahi Platt Attending Clinician Unavailable MAL REBOLLAR Attending Clinician Unavaila [facility] Admitting Clinician Unavailable Cortez Salomon Unavailable [id number] Payers Payer Name Policy Type Policy Number Effective Date Expirati on Date Source [facility] [id number] 2020 00:00:00 Problems Condition Name Condition Details Condition Category Status Onset Date Resolution Date Last Treatment Date Treating Clinician Comments Source Supervisio n of other normal Supervisio n of other normal Disease Active 12-09 00:00: 00 [facility] 13 weeks gestation of 13 weeks gestation of Disease Active 12-09 00:00: 00 [facility] Sasha of vagina Condition Active 16 00:00: 00 2020-01-05 16:24:47 [facility] Std exposure Condition Active 12-30 00:00: 00 2020-01-05 16:24:47 Aime Cortez [facility] Dysuria Condition Active 12-30 00:00: 00 2020-01-05 16:24:47 Aime Cortez [facility] Depo Provera contracept john, initial prescripti on Condition Active 12-30 00:00: 00 2020-01-05 16:24:47 Aime Cortez [facility] Overweight Condition Active 16 00:00: 00 2020-01-05 16:24:47 Aime Cortez [facility] 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 Repeat postpartu [facility] Allergies, Adverse Reactions, Alerts Allergy Name Allergy Type Status Severity Reaction(s) Onset Date Inactive Date Treating Clinician Comments Source No Known Allergie s DA Active U 2020-04 230 00:00: 00 [facility] are [facility] NO KNOWN ALLERGIE S Drug Class Active [facility] Social History Social Habit Start Date Stop Date Quantity Comments Source ASSERTION 2020-09-21 00:00:00 [facility] Exposure to SARS-CoV-2 (event) Not sure [facility] Tobacco use and exposure 2020-12-09 00:00:00 2020-12-09 00:00:00 Never used [facility] Alcohol intake 2020-12-09 00:00:00 2020-12-09 00:00:00 Lifetime non-drinker (finding) [facility] time of call 2020-03-01 11:51:55 2020-03-01 11:51:55 03/01/2020 11:52 AM [facility] condom use 2019-12-31 11:30:08 2019-12-31 11:30:08 Sometimes [facility] Ever had sexual intercourse? 2019-12-31 11:30:08 2019-12-31 11:30:08 Yes [facility] drug use, illicit 2019-12-31 11:30:08 2019-12-31 11:30:08 Never [facility] alcohol use 2019-12-31 11:30:08 2019-12-31 11:30:08 Currently [facility] is there any chance that you could be ? 2019-12-31 11:30:08 2019-12-31 11:30:08 No [facility] if the patient is using/has used a vaping item, Current, Former, Never Used, Not asked 2019-12-31 11:30:08 2019-12-31 11:30:08 No [facility] Sex Assigned At 2000 00:00:00 2000 00:00:00 [facility] Smoking Status Start Date Stop Date Source Never smoker [facility] Medications Ordered Medication Name Filled Medication Name Start Date Stop Date Current Medication? Ordering Clinician Indication Dosage Frequency Signature (SIG) Comments Components Source pramoxine (PROCTOFOAM ) 1 % foam 2020-04 00:00: 00 Yes [id number] Insert into rectum every 2 (two) hours as needed for Rectal itching/pa in. [facility] vit calc,iron,f olic ( VITAMIN ORAL) 12-09 09:25: 53 Yes Take by mouth. [facility] vit calc,iron,f olic ( VITAMIN ORAL) 12-09 09:25: 53 Yes Take by mouth. [facility] (NYSTATIN) [id number] UNIT/GM CREA 12-30 00:00: 00 Yes Cortez Salomon apply to labia Twice a Day x 7 days [facility] DIFLUCAN (FLUCONAZOL E) 150 MG TABS 12-30 00:00: 00 Yes Cortez Salomon 1 tab By Mouth x 1 for vaginal yeast [facility] PYRIDIUM (PHENAZOPYR IDINE HCL) 200 MG TABS 12-30 00:00: 00 Yes Cortez Salomon 1{Table t} 3xD 1 tab By Mouth Three Times a Day x 2 days [facility] KEFLEX (CEPHALEXIN ) 500 MG CAPS 12-30 00:00: 00 Yes Cortez Salomon 1 tab By Mouth Three Times a Day x 5 days [facility] 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 A (MEDROXYPRO GESTERONE ACETATE) 150 MG/ML SUSP 12-30 00:00: 00 Yes 150mg every 3 months (13 weeks) [facility] Vital Signs Vital Name Observation Time Observation Value Comments S ource Systolic blood pressure 2021-02-27 00:28:00 154 mm[Hg] [facility] Diastolic blood pressure 2021-02-27 00:28:00 93 mm[Hg] [facility] Heart rate 2021-02-27 00:28:00 101 /min [facility] Body temperature 2021-02-27 00:28:00 36.56 Analilia [facility] Respiratory rate 2021-02-27 00:28:00 18 /min [facility] Body weight 2021-02-27 00:28:00 68.04 kg [facility] BMI 2021-02-27 00:28:00 29.29 kg/m2 [facility] Oxygen saturation in Arterial blood by Pulse oximetry 2021-02-27 00:28:00 100 /min [facility] Systolic blood pressure 2020-12-27 05:17:55 104 mm[Hg] [facility] Diastolic blood pressure 2020-12-27 05:17:55 66 mm[Hg] [facility] Heart rate 2020-12-27 05:17:55 106 /min [facility] Body temperature 2020-12-27 05:17:55 37 Analilia [facility] Respiratory rate 2020-12-27 05:17:55 18 /min [facility] Oxygen saturation in Arterial blood by Pulse oximetry 2020-12-27 05:17:55 98 /min [place] [facility] Body height 2020-12-27 02:31:56 152.4 cm [facility] Body weight 2020-12-27 02:31:56 63.504 kg [facility] BMI 2020-12-27 02:31:56 27.34 kg/m2 [facility] blood pressure, diastolic 2019-12-31 11:30:08 72 mm[Hg[facility], systolic 2019-12-31 11:30:08 105 mm[Hg] [facility] oxygen saturation, oximetry 2019-12-31 11:30:08 98 /min [facility] pulse rate 2019-12-31 11:30:08 78 /min [facility] 2019-12-31 11:30:08 [facility] 2019-12-31 11:30:08 98.2 [degF] [facility] weight [facility]&M 2019-12-31 11:30:08 139.13 [lb_av] [facility] weight in kilograms E&M 2019-12-31 11:30:08 63.24 kg [facility] height in centimeters E&M 2019-12-31 11:30:08 152.40 cm [facility] Procedures Procedure Date / Time Performed Performing Clinician Source [id number] 2021-06-02 00:00:00 [facility] NOTICE OF PRIVACY PRACTICES 2021-02-27 00:02:02 Doctor Unassigned, [place] [facility] CONSENT/REFUSAL FOR DIAGNOSIS AND TREATMENT 2021-02-27 00:00:13 Doctor Unassigned, [place] [facility] CBC WITH DIFF 2020-12-27 03:54:00 Mahendra Johnson [facility] ABORH CONFIRMATION (LAB ONLY) 2020-12-27 03:50:00 Mahendra Johnson [facility] CT CERVICAL SPINE WO CONTRAST 2020-12-27 03:48:43 Mahendra Johnson [facility] CT THORACIC SPINE WO CONTRAST 2020-12-27 03:48:43 Mahendra Johnson [facility] HB ABO GROUPING 2020-12-27 03:15:00 [facility] 2020-12-27 03:12:00 Mahendra Johnson [facility] COVID-19 (ID NOW RAPID TESTING) 2020-12-27 03:12:00 Mahendra Johnson [facility] LIPASE 2020-12-27 02:44:00 Mahendra Johnson [facility] COMP. METABOLIC PANEL ([id number]) 2020-12-27 02:44:00 Mahendra Johnson [facility] PROTHROMBIN TIME / INR 2020-12-27 02:44:00 Rik Johnson [facility] ACTIVATED PARTIAL THRMPLAS RADHA 2020-12-27 02:44:00 Mahendra Johnson [facility] Encounters Start Date/Time End Date/Time Encounter Type Admission Type Attending [facility] Facility Care Department Encounter ID Source 2021-02-14 22:07:[address] [facility] [id number] [facility] 2022-07-17 09:56:32 2022-07-17 09:56:32 Outpatient [facility] [id number] Sreedhar F Poncho 2021-09-05 14:30:00 2021-09-05 14:30:00 Outpatient VENTURA BARRAZA [id number] Elyssa Marie 2021-06-01 22:58:00 2021-06-04 12:45:00 Inpatient EM Chi Constantino HCANW OBPP [id number] [facility] are [facility] 2021-04-14 10:58:00 2021-04-14 13:06:00 Emergency EM Chi Constantino HCANW LORRAINE [id number] [facility] are [facility] 2021-02-26 18:21:00 2021-02-26 18:57:00 Emergency X ALMA SUTHERLAND [facility] ERT [id number] [facility] 2021-02-26 18:21:00 2021-02-26 18:57:00 Emergency Alma Sutherland [facility] [id number] [id number] [facility] 2021-01-28 09:00:00 2021-01-28 09:00:00 Outpatient P [facility] [id number] [facility] 2020-12-26 21:31:00 2020-12-27 01:31:00 Emergency Mahendra Johnson [facility] [id number] [facility] 2020-12-17 00:00:00 2020-12-17 00:00:00 Orders Only Doctor Unassigned, [place] [facility] [id number] [id number] [facility] 2020-12-13 08:15:00 2020-12-13 08:15:00 Outpatient R [facility] [id number] [facility] 2020-12-09 08:32:35 2020-12-09 10:20:13 Initial Visit [facility] Damon [facility] 1..114 [id number] [facility] 2020-12-09 09:30:00 2020-12-09 09:30:00 Outpatient R TRINY DAMON [facility] [id number] [facility] 2020-12-09 00:00:00 2020-12-09 00:00:00 Orders Only Doctor Unassigned, [place] [facility] [id number] [id number] [facility] 2020-03-01 00:00:00 2020-03-01 00:00:00 Office Visit Leila Stephany [facility] Encounter/ [id number] [facility] 2020-03-01 00:00:00 2020-03-01 00:00:00 Office Visit Stephany Dee Leslie [facility] Encounter/ [id number] [facility] 2019-12-31 00:00:00 2019-12-31 00:00:00 Office Visit Cortez Salomon [facility] Encounter/ [id number] [facility] 2019-12-31 00:00:00 2019-12-31 00:00:00 Office Visit Cortez Salomon [facility] Encounter/ [id number] [facility] 2019-12-31 00:00:00 2019-12-31 00:00:00 Office Visit Cortez Salomon [facility] Encounter/ [id number] [facility] 2019-12-31 00:00:00 2019-12-31 00:00:00 Office Visit Cortez Salomon Guadalupe [facility] Encounter/ [id number] [facility] 2019-06-25 19:18:00 2019-06-26 00:21:00 Emergency E MAL REBOLLAR [facility] [id number] [facility] 2019-05-07 22:18:00 2019-05-07 22:18:00 Emergency E [facility] [id number] Results Test Description Test Time Test Comments Results Result Co mments Source RAPID PLASMA [id number] 07:13:00* Test Item Value Reference Range Interpretation Comme nts RAPID PLASMA REAGIN (test co de = RPR) NEGATIVE NEGATIVE AG HEPATITIS B [id number] 04:21:00* Test Item Value Reference Range Interpretation Comme nts AG HEPATITIS B SURFACE (test code = HBSAG) NEGATIVE NEGATIVE AB HIV 1 04:21:00* Test Item Value Reference Range Interpretation Comme nts AB HIV 1 2 (test code = KID77OP) NEGATIVE NEGATIVE AB RUBELLA [id number] 03:00:00* Test Item Value Reference Range Interpretation Comme nts AB RUBELLA IGG (test code = RUBGAB) POSITIVE NEGATIVE A Interpretive Jg a: Rubella IgG Concentrations between >= 10 IU/mL and < 15 IU/mL are considered indeterminate for determining immunity to rubella. Studies suggest that vaccinated individuals having these low levels of anti-rubella IgG do show a secondary immune response following re-vaccination but have not been challenged with wild rubella virus (9). A follow-up sample should be taken to further evaluate immune status. If the repeat sample is still indeterminate, the sample may require testing by alternate methods CBC W/AUTO [id number] 02:02:00* Test Item Value Reference Range Interpretation Comme nts WHITE BLOOD CELL (test code = WBC) 11.4 x10 3/uL 3.2-11.5 N RED BLOOD CELL (test code = RBC) 3.24 x10(6)/m 3.70-5.10 L HEMOGLOBIN (test code = HGB) 9.0 g/dL 12.0-15.0 L HEMATOCRIT (test code = HCT) 27.4 % 35.7-44.8 L MEAN CELL VOLUME (test code = MCV) 85 fL 80-100 N MEAN CELL HGB (test code = MCH) 27.8 pg 26.2-33.8 N MEAN CELL HGB CONCENTRATION (test code = MCHC) 32.8 g/dL 30.0-34.0 N RED CELL DISTRIBUTION WIDTH (test code = RDW) 16.2 % 11.3-14.5 H PLATELET COUNT (test code = PLT) 193 x10 3/uL 130-408 N MEAN PLATELET VOLUME (test c ode = MPV) 12.0 fL 8.6-12.6 N NEUTROPHIL % (test code = NT%) 72.6 [...] N NEUTROPHIL # (test code = NT#) 8.3 x10 3/uL 1.6-7.2 H LYMPHOCYTE # (test code = LY#) 1.95 x10 3/uL 1.1-2.7 N MONOCYTE # (test code = MO#) 0.9 x10 3/uL 0.3-0.8 H EOSINOPHIL # (test code = EO#) 0.1 x10 3/uL 0.0-0.5 N IMMATURE GRANULOCYTE % (test code = IG%) 1.4 % 0.0-2.0 N BASOPHIL # (test code = BA#) 0.0 x10 3/uL 0.0-0.1 N COVID 19 Asymptomatic IH [id number] 23:53:00* Test Item Value Reference Range Interpretation Comme nts COVID 19 Asymptomatic IH AG (test code = COVNONPUIAG) Negative Negative Negative results should be treated as presumptive andconfirmed with a molecular assay, if necessary for patientmanagement. Negative results do not rule out COVID-19 andshould not be used as the sole basis for treatment orpatient management decisions, including infection controldecisions. Negative results should be considered in thecontext of a patient's recent exposures, history and thepresence of clnical signs and symptoms consistent withCOVID-19.Specimen Source: Nasopharyngeal (BEAM DYER OPERATOR) Swab URINALYSIS [id number] 11:49:00* Test Item Value Reference Range Interpretation Comme nts UA COLOR (test code = COLU) Straw YELLOW UA APPEARANCE (test code = APPU) Clear CLEAR UA GLUCOSE DIPSTICK (test code = DGLUU) NEGATIVE NEGATIVE UA BILIRUBIN DIPSTICK (test code = BILU) NEGATIVE NEGATIVE UA KETONE DIPSTICK (test code = KETU) NEGATIVE NEGATIVE UA SPECIFIC GRAVITY (test code = SGU) 1.006 1.001-1.030 UA BLOOD DIPSTICK (test code = PAWEL) 3+ NEGATIVE UA PH DIPSTICK (test code = KESHAWN) 8.0 5.0-9.0 UA PROTEIN DIPSTICK (test code = PROU) NEGATIVE NEGATIVE UA UROBILINOGEN DIPSTICK (test code = URO) NEGATIVE See_Comment [Automated messa ge] The system which generated this result transmitted reference range: <=1.0. The reference range was not used to interpret this result as normal/abnormal. UA NITRITE DIPSTICK (test code = NAEEM) NEGATIVE NEGATIVE UA ASCORBIC ACID DIPSTICK (test code = AAU) NEGATIVE UA LEUKOCYTE ESTERASE DIPSTICK (test code = LEUU) NEGATIVE NEGATIVE UA WBC (test code = WBCU) 0-5 /HPF 0-5 UA RBC (test code = RBCU) TNTC /HPF 0-5 A UA EPITHELIAL CELLS (test code = EPIU) RARE /LPF NONE-FEW UA BACTERIA (test code = BACU) None /HPF NONE SEEN UA MUCUS (test code = MUCU) 1+ /LPF NONE SEEN ABORH Confirmation (Lab Only)2020-12-27 04:41:05* Test Item Value Reference Range Interpretation Comme nts ABO & RH (test code = 20) O Negative Performed at [facility] B Laboratory Services - [facility] Blood [address] [place] [address]Pcoo Free: [phone] No. [id number] [facility] WITH [id number] 04:13:06* Test Item Value Reference Range Interpretation Comme nts WBC (test code = 6690-2) See_Comment [Automated [email or web address]] The system which generated this result transmitted reference range: 4.30 - 11.10 10*3/?L. The reference range was not used to interpret this result as normal/abnormal. RBC (test code = 789-8) See_Comment L [Automated [email or web address]] The system which generated this result transmitted reference range: 3.93 - 5.25 10*6/?L. The reference range was not used to interpret this result as normal/abnormal. HGB (test code = 718-7) 10.1 g/dL 11.6-15.0 L HCT (test code = 4544-3) 28.4 % 35.7-45.2 L MCV (test code = 787-2) 86.1 fL 80.6-95.5 MCH (test code = 785-6) 30.6 pg 25.9-32.8 MCHC (test code = 786-4) 35.6 g/dL 31.6-35.1 H RDW-SD (test code = 27998-4) 42.0 fL 39.0-49.9 RDW-CV (test code = 788-0) 13.6 % 12.0-15.5 PLT (test code = 777-3) See_Comment [Automated messa ge] The system which generated this result transmitted reference range: 166 - 358 10*3/?L. The reference range was not used to interpret this result as normal/abnormal. MPV (test code = 37273-1) 11.6 fL 9.5-12.9 NRBC/100 WBC (test code = 7348797970) See_Comment [Automated [employer] ssage] The system which generated this result transmitted reference range: 0.0 - 10.0 /100 WBCs. The reference range was not used to interpret this result as normal/abnormal. NRBC x10^3 (test code = 9210064024) <0.01 See_Comment [Automated messa ge] The system which generated this result transmitted reference range: 10*3/?L. The reference range was not used to interpret this result as normal/abnormal. GRAN MAT (NEUT) % (test code = 770-8) 71.1 % IMM GRAN % (test code = 4449304868) 1.00 % LYMPH % (test code = 736-9) 20.2 % MONO % (test code = 5905-5) 6.7 % EOS % (test code = 713-8) 0.7 % BASO % (test code = 706-2) 0.3 % GRAN MAT x10^3(ANC) (test code = 7787287431) 7.16 10*3/uL 1.88-7.09 H IMM GRAN x10^3 (test code = 7888902831) 0.10 10*3/uL 0.00-0.06 H LYMPH x10^3 (test code = 731-0) 2.04 10*3/uL 1.32-3.29 MONO x10^3 (test code = 742-7) 0.68 10*3/uL 0.33-0.92 EOS x10^3 (test code = 711-2) 0.07 10*3/uL 0.03-0.39 BASO x10^3 (test code = 704-7) 0.03 10*3/uL 0.01-0.07 Lab Interpretation (test code = 54609-8) Abnormal [facility] THRMPLAS [id number] 04:07:28* Test Item Value Reference Range Interpretation Comme nts APTT Patient (test code = 3173-2) See_Comment [Automated message] The system which generated this result transmitted reference range: 23 - 38 Seconds. The reference range was not used to interpret this result as normal/abnormal. JOSE GUADALUPE (test code = JOSE GUADALUPE) The [facility] patient population mean normal value for aPTT is 30 seconds. Lab Interpretation (test code = 33305-7) Normal [facility] / [id number] 04:04:25* Test Item Value Reference Range Interpretation Comme [facility] PROTIME PATIENT (test code = 5964-2) See_Comment [Automated messa ge] The system which generated this result transmitted reference range: 12.0 - 14.7 Seconds. The reference range was not used to interpret this result as normal/abnormal. INR (test code = 6301-6) Normal INR <1.1; Warfarin Therapeutic range 2.0 to 3.0 or 2.5 to 3.5, depending upon the indications. Lab Interpretation (test code = 46899-1) Normal [facility] and Screen - ONCE [id number] 04:02:45* Test Item Value Reference Range Interpretation Comme nts ABO & RH (test code = 20) O Negative Performed at [facility] Laboratory [facility] Blood [address] [place], [place] [address]Toll Free: [phone] No. [id number] IAT (test code = 1185) Negative Performed at [facility] Laboratory [facility] Blood [address] [place], [place] [address]Toll Free: [phone] No. [id number] [facility]COMP. METABOLIC PANEL (81722)2020-12-27 03:49:44* Test Item Value Reference Range Interpretation Comme nts NA (test code = 3313584228) 137 mmol/L 135-145 K (test code = 2183303409) 3.7 mmol/L 3.5-5.0 CL (test code = 0957266217) 107 mmol/L 98-108 CO2 TOTAL (test code = 8271460704) 23 mmol/L 23-31 AGAP (test code = 5908818124) 2-16 BUN (test code = 8212125047) 9 mg/dL 7-23 GLUCOSE (test code = 1191109757) 92 mg/dL 70-110 CREATININE (test code = 6976192578) 0.46 mg/dL 0.50-1.04 L TOTAL BILI (test code = 7548403715) 0.4 mg/dL 0.1-1.1 CALCIUM (test code = 7148009822) 9.1 mg/dL 8.6-10.6 T PROTEIN (test code = 7184519033) 7.5 g/dL 6.3-8.2 ALBUMIN (test code = 6156873840) 3.9 g/dL 3.5-5.0 ALK PHOS (test code = 6090280922) 79 U/L 34-122 ALTv (test code = 1742-6) 26 U/L 5-35 AST(SGOT) (test code = 7309315697) 43 U/L 13-40 H eGFR (test code = 9851833596) mL/min/1.73m2 JOSE GUADALUPE (test code = JOSE GUADALUPE) [...] or abnormalities in imaging tests). Lab Interpretation (test code = 93068-2) Abnormal [facility]IPASE2021-09-13 03:49:44* Test Item Value Reference Range Interpretation Comme nts LIPASE (test code = 4655763578) 55 U/L 0-220 Lab Interpretation (test cod e = 05338-1) Normal [facility]ine [id number] 12:19:00* Test Item Value Reference Range Interpretation Comme nts urine culture (test code = 630-4) 1,000-9,000 CFU/ML of Group B Streptococcus iso... [facility] reagin antibody, [id number] 12:19:00* Test Item Value Reference Range Interpretation Comme nts rapid plasma reagin antibody , serum (test code = 5291-0) NON-REACTIVE NON-REACTIVE N [facility], Signal to [id number] 12:19:00* Test Item Value Reference Range Interpretation Comme nts Hepatitis C Antibody, Signal to Cut-Off (test code = 361909) 0.02 <1.00 N [facility], [id number] 12:19:00* Test Item Value Reference Range Interpretation Comme nts hepatitis C antibody, serum (test code = 5199-5) NON-REACTIVE [facility] whypsqa9887-02-78 12:19:00* Test Item Value Reference Range Interpretation Comme nts hepatitis B surface antigen (test code = 79) NON-REACTIVE NON-REACTIVE N [facility] (Chemiluminescent Microparticle Immuno Assay) 2019-12-31 12:19:00* Test Item Value Reference Range Interpretation Comme nts HIV-CMIA (Chemiluminescent Microparticle Immuno Assay) (test code = 695734) NON-REACTIVE NON-REACTIVE N [facility] gon[facility]rho[facility] DNA xlguq3472-48-17 12:19:00* Test Item Value Reference Range Interpretation Comme nts Neisseria gonorrhoeae DNA pr obe (test code = 98552-1) NOT DETECTED NOT DETECTED N [facility]lamydia [facility] vvdpf5516-16-06 12:19:00* Test Item Value Reference Range Interpretation Comme nts chlamydia DNA probe (test co de = 81926-5) NOT DETECTED NOT DETECTED N [facility] HCG, urine, ouzxuowrjcfljlmm9318-47-32 11:30:08* Test Item Value Reference Range Interpretation Comme nts beta HCG, urine, semiquantit ative (test code = 2106-3) negative [facility] test, date of kxqw1583-29-51 11:30:08* Test Item Value Reference Range Interpretation Comme nts HIV test, date of last (test code = 99215) 2018 [facility] Notes Date/Time Note Provider Source 2021-06-04 09:19:00 [id number] pcbA8t2ydchQ7BUVBKfhHqHyHue2890-19-81L69:19:00 [facility] ([facility])Med Order Sheet REPORT #: [id number] REPORT STATUS: Signed DATE: 06/04/21 TIME: 918 PATIENT: MALA GAGNON UNIT #: [id number] #: [id number] ROOM #: N.0280 BED: 1 : 98 AGE: 20 SEX: F ATTEND: Chi Constantino MD ADM AUTHOR: Chi Constantino MD ATTENTION EDITS and/or ADDENDA must be made in Patient Keeper for this note. Edits and ammendments created in [employer] are not visible in Patient Keeper or the legal medical record (HPF). Discharge Medication Reconciliation Discharge Meds Rec Completed. No Reconciled Orders.The following Hospital Medications have not yet been reconciled:Acetaminophen Tab (Tylenol Tab) 1000MG PO Q4H PRN mild pain (scale 1-3)Benzocaine Topical Sunray (Americaine Topical Sunray) 1APPLIC Topical ASDIR PRNepisiotomy discomfortCarboprost Inj (Hemabate Inj) 250MCG IM Q15M X 8 doses PRN hemorragediphenhydrAMINE Cap (Benadryl Cap) 25MG PO Q6H PRN itchingDocusate Sodium Cap (Colace Cap) 200MG PO DAILY PRN constipation (secondline)HC/Pramoxine Cream 2.5% (Analpram-HC Cream 2.5%) 1APPLIC Topical ASDIR PRNperineal discomfortHYDROcod/APAP 5/325 Tab (Drummond 5/325 Tab) 1TAB PO Q4H PRN moderate pain(score 4-6)HYDROcod/APAP 5/325 Tab (Drummond 5/325 Tab) 2TAB PO Q4H PRN pain score 7-10 orcrampingIbuprofen Tab (Motrin Tab) 800MG PO Q8H PRN crampingLanolin Ointmen (Lanolin Ointment) 1APPLIC Topical ASDIR PRN sore/crackednipplesMag/Al/Simeth Oral Liquid (Maalox Max Oral Liquid) 30ML PO Q4H PRN dyspepsiaMagnesium Hydroxide Oral Liq (Milk Of Magnesia Oral Liquid) 30ML PO DAILY PRNconstipation (first line)Ariela/Mump/Rub Vaccine Inj (MMR II Vaccine Inj) 1VIAL SubQ ASDIRMethylergonovine Inj (Methergine Inj) 0.2MG IM Q4H PRN hemorrageMisoprostol Tab (CytoTEC Tab) 800MCG Rectal ASDIR X 1 doses PRN forhemorrhage x 1 doseOndansetron Inj (Zofran Inj) 4MG IV Q8H PRN severe nausea and vomitingOxytocin Inj (Pitocin Inj) 10UNITS IM ASDIR X 1 doses PRN for bleeding x 1dosePrenatal Vitamin Tab ( Vitamin Tab) 1TAB PO DAILYSimethicone Chew Tab (Mylanta Gas Chew Tab) 160MG PO PC HS PRN gasSodium Chloride 0.9% (Nacl 0.9%) 10ML IV ASDIRTDaP Vaccine Inj (Adacel Vaccine Inj) 0.5ML IM ASDIR PRN if criteria metWitch Connie Medicated Pad (A.E.R Pads) 1MED.PAD Topical ASDIR PRN hemorrhoids Zolpidem Tab (Ambien Tab) 5MG PO BEDTIME PRN insomnia at 0919ATTENTION EDITS and/or ADDENDA must be made in Patient Keeper for this note. Edits and ammendments created in [facility] are not visible in Patient Keeper or the legal medical record (HPF). [facility] #: [id number] OF REPORTCLClinical orxw3232-65-09G06:19:00N.IT-[id number] ailable for patient tfxzQOBNNROIRXDQZK1621-76-49N79:19:34 [facility] 2021-06-04 09:17:00 [id number] x054ogpYCw9wwOpR+aqtB1l9jciQ0 J3FzeKdRnn6Ol4kEBUHjAtKqXLi7976-92-06I95:17:00 [facility] ([facility])OB Progress Note REPORT #: [id number] REPORT STATUS: Signed DATE: 06/04/21 TIME: 916 PATIENT: MALA GAGNON UNIT #: [id number] #: [id number] ROOM #: N.[facility]0 BED: 1 : 98 AGE: 20 SEX: F ATTEND: Chi Constantino MD ADM AUTHOR: Chi Constantino MD ATTENTION EDITS and/or ADDENDA must be made in Patient Keeper for this note. Edits and ammendments created in [employer] are not visible in Patient Keeper or the legal medical record (HPF). -- OBJECTIVE -- VITALS (06/03 09:17 - 06/04 09:17):Temperature F: 98.1Temperature C: 37.0 (36.4 - 37.0)Pulse Rate 80 (80 - 97)Respiratory rate: 16 (16 - 18)BP: 127/85 (105/69 - 131/86) -- DATA -- VITALS Pulse Rate 06/04/21 09:02 06/04/21 07:26 80 06/03/21 20:59 06/03/21 20:58 06/03/21 20:06 89 06/03/21 15:57 92 06/03/21 12:29 97 06/03/21 11:26 97 06/03/21 08:21 88 02/18/22 07:33 88SPO2 %: 06/04/21 09:02 06/04/21 07:26 100 06/03/21 20:59 06/03/21 20:58 06/03/21 20:06 96 06/03/21 15:57 99 06/03/21 12:29 99 06/03/21 11:26 99 06/03/21 08:21 98 06/03/21 07:33 98Temperature C: 06/04/21 09:02 06/04/21 07:26 37.0 06/03/21 20:59 06/03/21 20:58 06/03/21 20:06 36.4 06/03/21 15:57 36.7 06/03/21 12:29 06/03/21 11:26 36.7 06/03/21 08:21 06/03/21 07:33 36.6Temperature F: 06/04/21 09:02 06/04/21 07:26 06/03/21 20:59 06/03/21 20:58 06/03/21 20:06 06/03/21 15:57 06/03/21 12:29 98.1 06/03/21 11:26 06/03/21 08:21 97.9 06/03/21 07:33Respiratory rate: 06/04/21 09:02 06/04/21 07:26 16 06/03/21 20:59 06/03/21 20:58 06/03/21 20:06 18 06/03/21 15:57 16 06/03/21 12:29 16 06/03/21 11:26 16 06/03/21 08:21 16 06/03/21 07:33 16Respiratory source: 06/04/21 09:02 06/04/21 07:26 06/03/21 20:59 06/03/21 20:58 06/03/21 20:06 06/03/21 15:57 Observed 06/03/21 12:29 06/03/21 11:26 06/03/21 08:21 06/03/21 07:33Blood pressure: 06/04/21 09:02 06/04/21 07:26 127 / 85 06/03/21 20:59 06/03/21 20:58 06/03/21 20:06 105 / 69 06/03/21 15:57 131 / 86 06/03/21 12:29 124 / 80 06/03/21 11:26 124 / 80 06/03/21 08:21 105 / 67 06/03/21 07:33 105 / 67Height in: 06/04/21 09:02 06/04/21 07:26 06/03/21 20:59 06/03/21 20:58 06/03/21 20:06 06/03/21 15:57 06/03/21 12:29 06/03/21 11:26 06/03/21 08:21 06/03/21 07:33Height ft: 06/04/21 09:02 06/04/21 07:26 06/03/21 20:59 06/03/21 20:58 06/03/21 20:06 06/03/21 15:57 06/03/21 12:29 06/03/21 11:26 06/03/21 08:21 06/03/21 07:33Weight source: 06/04/21 09:02 06/04/21 07:26 06/03/21 20:59 06/03/21 20:58 06/03/21 20:06 06/03/21 15:57 06/03/21 12:29 06/03/21 11:26 06/03/21 08:21 06/03/21 07:33MEWS score: 06/04/21 09:02 06/04/21 07:26 1 06/03/21 20:59 06/03/21 20:58 06/03/21 20:06 1 06/03/21 15:57 1 06/03/21 12:29 06/03/21 11:26 1 06/03/21 08:21 06/03/21 07:33 1LOC: 06/04/21 09:02 06/04/21 07:26 Alert 06/03/21 20:59 06/03/21 20:58 06/03/21 20:06 Alert 06/03/21 15:57 Alert 06/03/21 12:29 06/03/21 11:26 Alert 06/03/21 08:21 06/03/21 07:33 AlertMean arterial pressure: 06/04/21 09:02 06/04/21 07:26 99.1 06/03/21 20:59 06/03/21 20:58 06/03/21 20:06 80.7 06/03/21 15:57 100.8 06/03/21 12:29 06/03/21 11:26 94.6 06/03/21 08:21 06/03/21 07:33 79.6Pain intensity: 06/04/21 09:02 7 06/04/21 07:26 06/03/21 20:59 5 06/03/21 20:58 3 06/03/21 20:06 06/03/21 15:57 06/03/21 12:29 6 06/03/21 11:26 06/03/21 08:21 06/03/21 07:33Pain scale utilized: 06/04/21 09:02 Verbal numeric 06/04/21 07:26 06/03/21 20:59 Verbal numeric 06/03/21 20:58 Verbal numeric 06/03/21 20:06 06/03/21 15:57 06/03/21 12:29 Verbal numeric 06/03/21 11:26 06/03/21 08:21 06/03/21 07:33BMI calculated: 06/04/21 09:02 06/04/21 07:26 06/03/21 20:59 06/03/21 20:58 06/03/21 20:06 06/03/21 15:57 06/03/21 12:29 06/03/21 11:26 06/03/21 08:21 06/03/21 07:33Height source: 06/04/21 09:02 06/04/21 07:26 06/03/21 20:59 06/03/21 20:58 06/03/21 20:06 06/03/21 15:57 06/03/21 12:29 06/03/21 11:26 06/03/21 08:21 06/03/21 07:33BSA calculated - sq m: 06/04/21 09:02 06/04/21 07:26 06/03/21 20:59 06/03/21 20:58 06/03/21 20:06 06/03/21 15:57 06/03/21 12:29 06/03/21 11:26 06/03/21 08:21 06/03/21 07:33IBW calculated: 06/04/21 09:02 06/04/21 07:26 06/03/21 20:59 06/03/21 20:58 06/03/21 20:06 06/03/21 15:57 06/03/21 12:29 06/03/21 11:26 06/03/21 08:21 06/03/21 07:33 AdjBW calculated: 06/04/21 09:02 06/04/21 07:26 06/03/21 20:59 06/03/21 20:58 06/03/21 20:06 06/03/21 15:57 06/03/21 12:29 06/03/21 11:26 06/03/21 08:21 06/03/21 07:33Numeric pain scale: 06/04/21 09:02 Severe pain-7 06/04/21 07:26 06/03/21 20:59 Moderate pain-5 06/03/21 20:58 Mild pain-3 06/03/21 20:06 06/03/21 15:57 06/03/21 12:29 Moderate pain-6 06/03/21 11:26 06/03/21 08:21 06/03/21 07:33Weight in Kilograms 06/04/21 09:02 06/04/21 07:26 06/03/21 20:59 06/03/21 20:58 06/03/21 20:06 06/03/21 15:57 06/03/21 12:29 06/03/21 11:26 06/03/21 08:21 06/03/21 07:33Height in Centimeters 06/04/21 09:02 06/04/21 07:26 06/03/21 20:59 06/03/21 20:58 06/03/21 20:06 06/03/21 15:57 06/03/21 12:29 06/03/21 11:26 06/03/21 08:21 06/03/21 07:33COVID-19 point of entry screening status: 06/04/21 09:02 06/04/21 07:26 06/03/21 20:59 06/03/21 20:58 06/03/21 20:06 06/03/21 15:57 06/03/21 12:29 06/03/21 11:26 06/03/21 08:21 06/03/21 07:33ED Arrival Time 06/04/21 09:02 06/04/21 07:26 06/03/21 20:59 06/03/21 20:58 06/03/21 20:06 06/03/21 15:57 06/03/21 12:29 06/03/21 11:26 06/03/21 08:21 06/03/21 07:33 ADDITIONAL COMMENTS:Vaginal Delivery Discharge NotePatient has no complain. Desires to go home.Vital signs stable. Afebrile.Lungs: CTA bilaterallyCV: R/R/RAbd: Soft, ND, NTFundus: Firm, NTLochea: MildExt: No C/C/E. No calf-tenderness.A/P: s/p PPD#2.1. Discharge home.2. F/U in 3 weeks in office.3. Rx for Motrin 800mg PO Q8 prn4. Pelvic rest for 6 weeks. Signed in PatientKeeper by Chi Constantino MD on 06/04/21 at 09:18 at 0918ATTENTION EDITS and/or ADDENDA must be made in Patient Keeper for this note. Edits and ammendments created in [facility] are not visible in Patient Keeper or the legal medical record (HPF). [facility] #: [id number] OF REPORTPRProgress wghl7779-01-42U13:17:00N.CI-[id number] ailable for patient uneaGTRWSGAWLURPYQ3246-04-12H57:18:43 [facility] 2021-06-03 12:57:00 [id number] l0tjdtUNvXwneXPyzY7Krka/f2A6D esnNP+Wpkdma3UQJDxS+97mIeSf8754-23-61Y20:57:00 [facility] ([facility])OB Progress Note REPORT #: [id number] REPORT STATUS: Signed DATE: 06/03/21 TIME: 1257 PATIENT: MALA GAGNON UNIT #: [id number] #: [id number] ROOM #: N.0280 BED: 1 : 98 AGE: 20 SEX: F ATTEND: Chi Constantino MD ADM AUTHOR: Chi Cosntantino MD ATTENTION EDITS and/or ADDENDA must be made in Patient Keeper for this note. Edits and ammendments created in [facility] are not visible in Patient Keeper or the legal medical record ([facility]). -- OBJECTIVE -- VITALS (06/02 12:57 - 06/03 12:57):Temperature F: 97.9 (97.9 - 98.4)Temperature C: 36.7 (36.3 - 37.0)Pulse Rate 97 (81 - 125)Respiratory rate: 16 (16 - 18)BP: 124/80 (98/56 - 138/81) I/Os (06/02 07:00 - 06/03 07:00):Net 1,750Intake 1,750 -- DATA -- LABS CBC W/AUTO DIFF (06/01/21 23:25)WHITE BLOOD CELL 11.4RED BLOOD CELL 3.24 LHEMOGLOBIN 9.0L LHEMATOCRIT 27.4L LMEAN CELL VOLUME 85MEAN CELL HGB 27.8MEAN CELL HGB CONCENTRATION 32.8RED CELL DISTRIBUTION WIDTH 16.2 HPLATELET COUNT 193MEAN PLATELET VOLUME 12.0NEUTROPHIL % 72.6 HIMMATURE GRANULOCYTE % 1.4LYMPHOCYTE % 17.2 LMONOCYTE % 7.5EOSINOPHIL % 0.9BASOPHIL % 0.4NUCLEATED RBC % 0.0NEUTROPHIL # 8.3 HLYMPHOCYTE # 1.95MONOCYTE # 0.9 HEOSINOPHIL # 0.1BASOPHIL # 0.0 RPR (06/01/21 23:25)RAPID PLASMA REAGIN NEGATIVE URINALYSIS COMPLETE (04/14/21 11:15)UA COLOR StrawUA APPEARANCE ClearUA GLUCOSE DIPSTICK NEGATIVEUA BILIRUBIN DIPSTICK NEGATIVEUA KETONE DIPSTICK NEGATIVEUA SPECIFIC GRAVITY 1.006UA BLOOD DIPSTICK 3+UA PH DIPSTICK 8.0UA PROTEIN DIPSTICK NEGATIVEUA UROBILINOGEN DIPSTICK NEGATIVEUA NITRITE DIPSTICK NEGATIVEUA ASCORBIC ACID DIPSTICK NEGATIVEUA LEUKOCYTE ESTERASE DIPSTICK NEGATIVEUA WBC 0-5UA RBC TNTC KATHI EPITHELIAL CELLS RAREUA BACTERIA NoneUA MUCUS 1+ COVID ASYMP AG (06/01/21 22:55)COVID 19 Asymptomatic IH AG Negative AB HIV 1 amp;2 (06/01/21 23:25)AB HIV 1 2 NEGATIVE RUBGAB (06/01/21 23:25)AB RUBELLA IGG POSITIVE A HBSAG (06/01/21 23:25)AG HEPATITIS B SURFACE NEGATIVE CBC W/AUTO DIFF (06/03/21 04:46)WHITE BLOOD CELL 12.3H HRED BLOOD CELL 2.91 LHEMOGLOBIN 8.0L LHEMATOCRIT 24.7L LMEAN CELL VOLUME 85MEAN CELL HGB 27.5MEAN CELL HGB CONCENTRATION 32.4RED CELL DISTRIBUTION WIDTH 16.1 HPLATELET COUNT 143MEAN PLATELET VOLUME 12.1NEUTROPHIL % 76.2 HIMMATURE GRANULOCYTE % 1.0LYMPHOCYTE % 14.2 LMONOCYTE % 7.4EOSINOPHIL % 1.0BASOPHIL % 0.2NUCLEATED RBC % 0.0NEUTROPHIL # 9.4 HLYMPHOCYTE # 1.75MONOCYTE # 0.9 HEOSINOPHIL # 0.1BASOPHIL # 0.0 ADDITIONAL COMMENTS:Vaginal Delivery Day 1Patient has no complain. No F/C/N/V. No heavy bleeding. VSS. Afebrile.Lungs: CTA bilaterallyCV: R/R/RAbd: Soft, ND, NTFundus: Firm, NTLochea: MildExt: No C/C/E. No calf-tenderness.CBC PendingA/P: s/p PPD # 11. Continue routine post care. Signed in PatientKeeper by Chi Constantino MD on 06/03/21 at 12:58 at 1258ATTENTION EDITS and/or ADDENDA must be made in Patient Keeper for this note. Edits and ammendments created in [facility] are not visible in Patient Keeper or the legal medical record (HPF). [facility] #: [id number] OF REPORTPRProgress vorj7999-15-31V73:57:00N.LX-[id number] ailable for patient izmiEWLDBCFORONSWF5956-35-70J87:00:38 [facility] 2021-06-02 13:43:00 [id number] a8EcA1PGD0C5f0DQGWzgENt+vm4cj gAnrxxP/QXagzMan6eIWsbL7owg9773-57-77S29:43:00 [facility] REPORT #: [id number] REPORT STATUS: Signed DATE: 06/02/21 TIME: 1343 PATIENT: MALA GAGNON UNIT #: [id number] #: [id number] ROOM #: N.1204 BED: 1 : 98 AGE: 20 SEX: F ATTEND: Chi Constantino MD ADM AUTHOR: James Nobles MD ATTENTION EDITS and/or ADDENDA must be made in Patient Keeper for this note. Edits and ammendments created in [employer] are not visible in Patient Keeper or the legal medical record (HPF). Discharge Medication Reconciliation DISCHARGE MEDICATION LISTPrenatal Vitamin Tab ( Vitamin Tab) Dose: 1 TAB PO DAILYIbuprofen Tab (Motrin Tab) Dose: 800 MG PO q8h PRN cramping, Disp: 30 tablet, Refills: 0 The following Hospital Medications have not yet been reconciled:Acetaminophen Tab (Tylenol Tab) 1000 MG PO q4h PRN mild pain (scale 1-3)(CAUTION: DO NOT EXCEED 4000MG ACETAMINOPHEN IN 24HRS)Acetaminophen Tab (Tylenol Tab) 1000MG PO PACU ONCE X 1 doses PRN mild pain1-3Benzocaine Topical Sunray (Americaine Topical Sunray) 1 APPLIC Topical asdir PRN episiotomy discomfort perineum (AT BEDSIDE)Butorphanol Inj (Stadol Inj) 1MG IV Q1H PRN moderate pain 4-6Butorphanol Inj (Stadol Inj) 2MG IV Q2H PRN severe pain (score 7-10)Carboprost Inj (Hemabate Inj) 250 MCG IM q15m X 8 doses PRN hemorrage(MAXIMUM DOSE: 2MG (8 DOSES)STORE IN REFRIGERATOR)Carboprost Inj (Hemabate Inj) 250MCG IM PACU ONCE X 1 doses PRN excessivebleedingdiphenhydrAMINE Cap (Benadryl Cap) 25 MG PO Q6H PRN itchingdiphenhydrAMINE Inj (Benadryl Inj) 12.5MG IV Q6H PRN mild itchingDocusate Sodium Cap (Colace Cap) 200 MG PO daily PRN constipation (secondline) (If MOM not effective.HOLD FOR LOOSE STOOLS)ePHEDrine Inj (ePHEDrine Inj) 10MG IV Q5M PRN sbp<90 (max: 50mg)fentaNYL/Ropiv 2mcg/0.2% Inj 200MCG Epidural ASDIRHC/Pramoxine Cream 2.5% (Analpram-HC Cream 2.5%) 1 APPLIC Topical asdir PRNperineal discomfortHYDROcod/APAP 5/325 Tab (Drummond 5/325 Tab) 1 TAB PO q4h PRN moderate pain(score 4-6) (HYDROCODONE/APAP 5/325CAUTION: DO NOT EXCEED 4000 MG DANIELITO...)HYDROcod/APAP 5/325 Tab (Drummond 5/325 Tab) 1TAB PO PACU ONCE X 1 doses PRNmoderate pain 4-6HYDROcod/APAP 5/325 Tab (Drummond 5/325 Tab) 2 TAB PO q4h PRN pain score 7-10 orcramping (HYDROCODONE/APAP 5/325CAUTION: DO NOT EXCEED 4000MG ACET...)HYDROcod/APAP 5/325 Tab (Drummond 5/325 Tab) 2TAB PO PACU ONCE X 1 doses PRNsevere pain 7-10Ibuprofen Tab (Motrin Tab) 800MG PO PACU ONCE X 1 doses PRN cramping Lactated Ringers (LR) 1000ML 125 MLS/HR IV ASDIRLanolin Ointmen (Lanolin Ointment) 1 APPLIC Topical asdir PRN sore/crackednipples nipples (TO BREASTS PRN SORE/CRACKED NIPPLES)Lidocaine PF Inj 1% 30mL (Xylocaine PF Inj 1% 30mL) 30ML Local ASDIR PRN forepisiotomy repairMag Carb/Al Hydrox/AlgAcid Tab (Gaviscon Extra Strength Tab) 2TAB PO ASDIR PRN pre-op for c-sectionMag/Al/Simeth Oral Liquid (Maalox Max Oral Liquid) 30 ML PO Q4H PRN dyspepsiaMagnesium Hydroxide Oral Liq (Milk Of Magnesia Oral Liquid) 30 ML PO daily PRN constipation (first line)Ariela/Mump/Rub Vaccine Inj (MMR II Vaccine Inj) 1 VIAL SubQ asdir (ONCE IFNON RUBELLA IMMUNE(SEND WITH DILUENT))Methylergonovine Inj (Methergine Inj) 0.2 MG IM Q4H PRN hemorrage (DO NOTGIVE IF BP>140/90)Methylergonovine Inj (Methergine Inj) 0.2MG IM PACU ONCE X 1 doses PRN pphemorrhageMetoclopramide Inj (Reglan Inj) 10MG IV ASDIR PRN pre-op for c-sectMineral Oil Oral Liquid (Mineral Oil Oral Liquid) 30ML Topical ONCALL PRNtopical lubricationMisoprostol Tab (CytoTEC Tab) 800 MCG Rectal ASDIR X 1 doses PRN forhemorrhage x 1 dose (ONCE)Misoprostol Tab (CytoTEC Tab) 800MCG Rectal PACU ONCE X 1 doses PRN pphemorrhageNaloxone Inj (Narcan Inj) 0.4MG IV Q2M PRN resp rate <8/min call anesthOndansetron Inj (Zofran Inj) 4 MG IV q8h PRN severe nausea and vomiting (Ifunable to take POMAY GIVE IVP OVER NOT LESS THAN 30S...)Ondansetron Inj (Zofran Inj) 4MG IV Q8H PRN nausea and vomitingOndansetron Inj (Zofran Inj) 8MG IV Q8H PRN severe nausea and vomitingOxytocin 30 Units/NS 503mL (Pitocin 30 Units/NS 503mL) 30UNITS ASDIRECTED IVASDIR X 1 dosesOxytocin Inj (Pitocin Inj) 10 UNITS IM ASDIR X 1 doses PRN for bleeding x 1doseOxytocin Inj (Pitocin Inj) 30UNITS TITRATE IV ASDIRPhenylephrine Inj (Jason Synephrine Inj) 100MCG IV Q3M PRN see specialinstructionsPromethazine Inj (Phenergan Inj) 25MG IV Q4H PRN nausea and vomitingSimethicone Chew Tab (Mylanta Gas Chew Tab) 160 MG PO PC HS PRN gasSodium Chloride 0.9% (Nacl 0.9%) 10 ML IV ASDIRSodium Cit/Cit Acid Oral Liq (Bicitra Oral Liquid) 30ML PO ASDIR PRN pre-opfor c-sectTDaP Vaccine Inj (Adacel Vaccine Inj) 0.5 ML IM asdir PRN if criteria met(ONCE IF NEVER RECEIVED Td OR WAS ADMINISTERED 2OR MORE...)Terbutaline Inj (Brethine Inj) 0.25MG SubQ ONCE X 1 doses PRN uterine tetanyWitch Connie Medicated Pad (A.E.R Pads) 1 MED.PAD Topical asdir PRN hemorrhoidsZolpidem Tab (Ambien Tab) 5 MG PO BEDTIME PRN insomnia at 1343ATTENTION EDITS and/or ADDENDA must be made in Patient Keeper for this note. Edits and ammendments created in [facility] are not visible in Patient Keeper or the legal medical record (HPF). RPT #: [id number] OF REPORTCLClinical lzek2650-26-51M66:43:00N.SG-[id number] ailable for patient gmwmYZUZCTRELUNFZM9962-20-32C15:43:31 [facility] 13:42:00 [id number]/DL cjJH11G6qN+hSJT2Dmj+HMBVGZYYB ibbRJ7tBFc7t/tTZCc4XZ6g05aN2131-69-24N71:42:00 [facility] #: [id number] REPORT STATUS: Signed DATE: 06/02/21 TIME: 1342 PATIENT: MALA GAGNON UNIT #: [id number] #: [id number] ROOM #: N.1204 BED: 1 : 98 AGE: 20 SEX: F ATTEND: Chi Constantino MD ADM AUTHOR: James Nobles MD ATTENTION EDITS and/or ADDENDA must be made in Patient Keeper for this note. Edits and ammendments created in [employer] are not visible in Patient Keeper or the legal medical record (HPF). -- DELIVERY -- PERFORMED BY:James Nobles MD PROCEDURE START DATE:2021-06-02 -- DATA -- ADDITIONAL COMMENTS:Patient was C/C/+2 pushing. Head was delivered in OA presentation over intactperineum, no nuchal cord. Rest of body followed without difficulty. Cord wasclamp and cut, and baby girl was delivered to nursery for suctioning. Weightwas 6#0, was 9/9. Placenta was delivered spontaneously, intact. Nolaceration was found. EBL was 200 cc. Signed in PatientKeeper by James Nobles MD on 06/02/21 at 13:43 at 1343ATTENTION EDITS and/or ADDENDA must be made in Patient Keeper for this note. Edits and ammendments created in [employer] are not visible in Patient Keeper or the legal medical record ([facility]). RPT #: [id number] OF REPORTCLClinical [id number]:42:[id number].[id number] ailable for patient yhohWALCUWNWUGUTAG0703-55-61T52:43:51 [facility] 2021-06-02 13:41:00 [id number] gBYtInikVX+4G0NiUXEjOoTp5KYg5 ZLeqMzegC9AC0djbUEFrIYh6R6Q1656-38-65W72:41:00 [facility] ([facility])Med Order Sheet REPORT #: [id number] REPORT STATUS: Signed DATE: 06/02/21 TIME: 1341 PATIENT: MALA GAGNON UNIT #: [id number] #: [id number] ROOM #: N.1204 BED: 1 : 98 AGE: 20 SEX: F ATTEND: Chi Constantino MD ADM AUTHOR: James Nobles MD ATTENTION EDITS and/or ADDENDA must be made in Patient Keeper for this note. Edits and ammendments created in [facility] are not visible in Patient Keeper or the legal medical record ([facility]). Admission Medication Reconciliation -- CONTINUED / CHANGED HOME MEDICATIONS -- Home: Vitamin Tab ( Vitamin Tab) 1 TAB PO DAILYHosp: Vitamin Tab ( Vitamin Tab) 1 TAB PO DAILY at 1341ATTENTION EDITS and/or ADDENDA must be made in Patient Keeper for this note. Edits and ammendments created in [facility] are not visible in Patient Keeper or the legal medical record ([facility]). RPT #: [id number] OF REPORTCLClinical [id number]:41:[id number] ailable for patient yhkmHVOOFIJOAAUHZC2532-03-84T40:41:20 [facility] 2021-06-01 22:56:00 [id number]+Njy wLzfYZCwOnxL9ofGZIiSGfeRLlS9064-38-31Q12:56:00 [facility] ([facility])OB History Physical REPORT #: [id number] REPORT STATUS: Signed DATE: 06/01/21 TIME: 6 PATIENT: MALA GAGNON UNIT #: [id number] #: [id number] ROOM #: BED: : 98 AGE: 20 SEX: F ATTEND: Chi Constantino MD ADM AUTHOR: Radha Ratliff MD ATTENTION EDITS and/or ADDENDA must be made in Patient Keeper for this note. Edits and ammendments created in [facility] are not visible in Patient Keeper or the legal medical record ([facility]). -- HISTORY -- ADMISSION DATE:2021-06-01 CHIEF COMPLAINT:"My water broke" HPI:20 yo at 38.2 wga, pt of Dr. Constantino, presents with complaints of LoF.She has no other OB complaints. -PAST MEDICAL HISTORY- PAST MEDICAL HISTORY:Rh negASCUS HPV+ PAST SURGICAL HISTORY:Denies -LABS- BLOOD TYPE:O D RH TYPE:Negative ANTIBODY SCREEN:Negative VDRL/RPR:Non-reactive CHLAMYDIA:Negative GC:Negative GBS:Negative HBSAG:Negative HIV:Negative HPV:Positive RUBELLA:Immune GLUCOSE SCREEN:109 GENETIC TESTING:Quad neg -- ALLERGIES/HOME MEDS -- ALLERGIES:No Known Allergies (UNKNOWN - Allergy) HOME MEDICATIONS: Vitamin Tab ( Vitamin Tab) 1 TAB PO DAILY -- SUBJECTIVE -- -REVIEW OF SYSTEMS- GENERAL: Negative for fever, malaise, fatigue.RESPIRATORY: Negative for dyspnea or wheeze. No cough.CARDIOVASCULAR: Negative for chest pain or palpitations. No extremity swelling.GASTROINTESTINAL: Negative for abdominal pain or nausea. No emesis. No diarrhea.GENITOURINARY: Negative for dysuria, frequency, or urgency. No gross hematuria.MUSCULOSKELETAL: Negative for joint stiffness, pain, or arthralgias. -- OBJECTIVE -- ADDITIONAL V/S:T: 98BP: 123/78P: 91 -EXAM- HEAD: Normocephalic, atraumatic.HEART: Regular rateLUNGS: Normal respiratory effort.PELVIC: Gravid UT, NT. Grossly ruptured. -RUPTURE OF MEMBRANES- Spontaneous TIME:2000 COLOR:Clear AMOUNT:Large -BABY A EVALUATION- BASELINE:130 VARIABILITY:Moderate 6-25 bpm ACCELERATIONS:15 x 15 DECELERATIONS:None FHR CATEGORY:Category 1 -CERVICAL EXAM- DILATION:4 EFFACEMENT:50 % STATION:-3 -UTERINE ACTIVITY- MONITOR:[place] FREQUENCY (DESCRIPTION):Irregular -- ASSESSMENT AND PLAN -- GENERAL ASSESSMENT:20 yo at 38.2 wga, pt of Dr. 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 Edits and ammendments created in [facility] are not visible in Patient Keeper or the legal medical record (HPF). [facility] #: [id number] OF REPORTHPHistory and physical [id number] for patient [id number] RED
[2023-07-06 22:38] LABS: Absolute Eosinophils 0.1 K/uL (0-0.5); Absolute Lymphocytes (CBC) 2.7 K/uL (0.7-4.9); Absolute Monocytes 0.8 K/uL (0.1-1.3); Basophils % 0.5 % (0-1.3); Eosinophils % 1.5 % (0-4.4); Hematocrit 32.6 % (36.0-45.0); Hemoglobin 11.2 g/dL (12.0-15.0); Lymphocytes % 31.6 % (15.3-44.8); MCH 29.2 pg (27.0-35.0); MCHC 34.3 g/dL (32.0-36.0); MCV 85.2 fL (80-100); MPV 9.5 fL (7.6-11.3); Monocytes % 9.1 % (3.3-12.3); Neutrophils % 57.3 % (41.7-73.7); Platelets 229 thou/uL (152-406); RBC Red Blood Cell Count 3.83 M/uL (3.86-4.86); Red Cell Distribution Width 12.9 % (12.1-15.2)
[2023-07-06 22:51] LABS: PT Prothrombin Time 11.1 SECONDS (9.5-12.5); PTT, Activated Partial Thromb 32.2 SECONDS (24.3-36.9); Protime INR 1.01
[2023-07-06 23:00] LABS: Specific Gravity 1.024 (1.005-1.030); Urine Bacteria None Seen /HPF (<20); Urine Bilirubin NEGATIVE (Negative); Urine Blood Negative (Negative); Urine Clarity Turbid (Clear); Urine Color Yellow (Yellow); Urine Culture Reflex Order NOT NEEDED; Urine Glucose NEGATIVE (Negative); Urine Ketones NEGATIVE (Negative); Urine Microscopic Reflex YN ORDER UMIC; Urine Mucus Slight /HPF (None Seen); Urine Nitrite NEGATIVE (Negative); Urine Protein TRACE (Negative); Urine RBC <5 /HPF (None Seen); Urine Urobilinogen Normal (Normal); Urine WBC <5 /HPF (<5)
[2023-07-06 23:01] LABS: ALT/SGPT 17 U/L (13-56); AST/SGOT 11 U/L (15-37); Albumin 3.4 g/dL (3.4-5.0); Albumin/Globulin Ratio 0.9 (1.1-1.8); Alkaline Phosphatase 66 U/L (45-117); Anion Gap 9.1 mEq/L (5.0-15.0); BUN Blood Urea Nitrogen 9 mg/dL (7-18); Bicarbonate 24 mEq/L (21-32); Bilirubin Total 0.2 mg/dL (0.2-1.0); Creatine Phosphokinase 49 U/L (26-192); Globulin 3.8 g/dL (2.3-3.5); Glomerular Filtration Rate 108 ml/min (=/>90); Glucose Level 137 mg/dL (74-106); Potassium 3.1 mEq/L (3.5-5.1); Protein, Total 7.2 g/dL (6.4-8.2); Sodium Level 139 mEq/L (136-145)
[2023-07-06 23:07] LABS: Barbiturates NEGATIVE (NEGATIVE); Benzodiazepines NEGATIVE (NEGATIVE); Cocaine NEGATIVE (NEGATIVE); METHAMPHETAM NEGATIVE (NEGATIVE); Methadone NEGATIVE (NEGATIVE); Opiates NEGATIVE (NEGATIVE); Phencyclidine NEGATIVE (NEGATIVE); THC Cannibis POSITIVE (NEGATIVE)
[2023-07-06 23:15] LABS: Bilirubin Direct < 0.1 mg/dL (0-0.2); Bilirubin Indirect, Calculated ND mg/dL (0.2-0.8)
--- NOTE | 2023-07-07 01:36 | ER ---
Nurse's Notes [facility] Name: Niecy Sibley Age: 23 yrs Sex: Female : 2000 Arrival Date: 07/06/2023 Time: 22:14 Bed 3 Private MD: Diagnosis: Adverse effect of cannabinoid Presentation: 07/05 22:22 Chief complaint: EMS states: patient took two THC gummies at 2100. Started to have tm6 shakes. Upon EMS arrival, HR was 175. EMS placed 18g RAC and gave 500cc NS bolus. HR went down to 150. Coronavirus screen: Vaccine status: Patient reports being unvaccinated. Ebola Screen: Patient negative for fever greater than or equal to 101.5 degrees Fahrenheit, and additional compatible Ebola Virus Disease symptoms Patient denies exposure to infectious person. Patient denies travel to an Ebola-affected area in the 21 days before illness onset. No symptoms or risks identified at this time. Initial Sepsis Screen: Does the patient meet any 2 criteria? HR > 90 bpm. Does the patient have a suspected source of infection? No. Patient's initial sepsis screen is negative. Risk Assessment: Do you want to hurt yourself or someone else? Patient reports no desire to harm self or others. Onset of symptoms was July 06, 2023 at 21:00. Care prior to arrival: Medication(s) given: Normal saline infusion, 500 mL. 22:22 Method Of Arrival: EMS: [facility] tm6 22:22 Acuity: NORA 2 tm6 Triage Assessment: 22:30 General: Appears in no apparent distress. Behavior is cooperative, quiet, restless. tm6 Pain: Denies pain. EENT: No signs and/or symptoms were reported regarding the EENT system. Neuro: Level of Consciousness is awake, alert, obeys commands, Oriented to person, place, situation, Pupils are sluggish, dilated. Neuro: tremors. Cardiovascular: Capillary refill < 3 seconds Patient's skin is warm and dry. Rhythm is sinus tachycardia. Respiratory: Airway is patent Respiratory effort is even, unlabored, Respiratory pattern is regular, symmetrical. GI: No signs and/or symptoms were reported involving the gastrointestinal system. : No signs and/or symptoms were reported regarding the genitourinary system. Derm: No signs and/or symptoms reported regarding the dermatologic system. Musculoskeletal: shaking/tremors throughout body. Historical: - Allergies: 22:24 No Known Allergies; tm6 - PMHx: 22:24 Unable to Obtain; tm6 - PSHx: 22:24 Unable to Obtain; tm6 - Immunization history:: Adult Immunizations up to date. - Social history:: Smoking status: Patient denies any tobacco usage or history of. Patient uses Patient/guardian denies using alcohol, street drugs. Screenin:39 [facility] ED Fall Risk Assessment (Adult) History of falling in the last 3 months, tm6 including since admission No falls in past 3 months (0 pts) Confusion or Disorientation Yes (5 pts) Intoxicated or Sedated Yes (3 pts) Impaired Gait No (0 pts) Mobility Assist Device Used No (0 pt) Altered Elimination Yes (1 pt) Score/Fall Risk Level 3 or more points = High Risk Oriented to surroundings, Maintained a safe environment, Educated pt \\T\\ family on fall prevention, incl call for assistance when getting out of bed, Assessed \\T\\ reinforced patient's understanding of fall precautions. Abuse screen: Denies threats or abuse. Denies injuries from another. Nutritional screening: No deficits noted. Tuberculosis screening: No symptoms or risk factors identified. Assessment: 22:32 Reassessment: see triage assessment. tm6 22:52 Reassessment: Patient and/or family updated on plan of care and expected duration. Pain tm6 level reassessed. Patient is alert, oriented x 3, equal unlabored respirations, skin warm/dry/pink. 22:52 Reassessment: patient no longer shaking. tm6 23:15 Reassessment: Patient appears in no apparent distress at this time. pt sleeping at this km8 time. 07/06 00:00 Reassessment: Patient appears in no apparent distress at this time. No changes from km8 previously documented assessment. 01:00 Reassessment: Patient appears in no apparent distress at this time. No changes from km8 previously documented assessment. 01:53 Reassessment: Patient appears in no apparent distress at this time. Patient and/or km8 family updated on plan of care and expected duration. Pain level reassessed. Patient is alert, oriented x 3, equal unlabored respirations, skin warm/dry/pink. . General: Appears comfortable, Behavior is calm, cooperative. Neuro: Level of Consciousness is awake, alert, obeys commands, Oriented to person, place, time, situation. Cardiovascular: Patient's skin is warm and dry. Respiratory: Airway is patent Respiratory effort is even, unlabored, Respiratory pattern is regular, symmetrical. 01:54 Reassessment: waiting for IV fluids to finish before d/c. km8 02:14 Reassessment: Patient appears in no apparent distress at this time. No changes from km8 previously documented assessment. Patient and/or family updated on plan of care and expected duration. Pain level reassessed. Patient is alert, oriented x 3, equal unlabored respirations, skin warm/dry/pink. 02:52 Reassessment: Patient and/or family updated on plan of care and expected duration. Pain tm6 level reassessed. Patient is alert, oriented x 3, equal unlabored respirations, skin warm/dry/pink. 03:11 Reassessment: Patient and/or family updated on plan of care and expected duration. Pain tm6 level reassessed. Patient is alert, oriented x 3, equal unlabored respirations, skin warm/dry/pink. Psych: 07/05 22:39 [place] Suicide Severity Screening: In the past month, have you wished you were tm6 or wished you could go to sleep and not wake up? Patient responds "No." "In the past month, have you actually had any thoughts of killing yourself?" Patient responds "no." "In your lifetime, have you ever done anything, started to do anything, or prepared to do anything to end your life?" Patient responds "no.". Subjective:. Objective: Patient is cooperative, Speech is normal. Pt denies substance abuse. Vital Signs: 22:22 BP 114 / 87; Pulse 140; Resp 20; Temp 97.2(TE); Pulse Ox 100% on R/A; Weight 68.04 kg; tm6 Height 5 ft. 1 in. ; Pain 0/10; 22:51 BP 127 / 78; Pulse 125; Resp 19; Pulse Ox 98% on R/A; tm6 23:17 BP 128 / 64; Pulse 126; Resp 16; Pulse Ox 98% on R/A; km8 07/06 00:00 BP 116 / 58; Pulse 123; Resp 16; Pulse Ox 99% on R/A; km8 00:30 BP 119 / 62; Pulse 104; Resp 16; Pulse Ox 98% on R/A; km8 01:00 BP 123 / 69; Pulse 96; Resp 16; Pulse Ox 99% on R/A; km8 02:00 BP 104 / 55; Pulse 109; Resp 17; Pulse Ox 98% on R/A; km8 02:51 BP 100 / 56; Pulse 107; Resp 19; Pulse Ox 99% on R/A; Pain 0/10; tm6 03:10 BP 112 / 70; Pulse 106; Resp 19; Temp 97.3(TE); Pulse Ox 98% on R/A; Pain 0/10; tm6 07/05 22:22 Body Mass Index 28.34 (68.04 kg, 154.94 cm) tm6 07/05 22:22 Pain Scale: Adult tm6 02:51 Pain Scale: Adult tm6 03:10 Pain Scale: Adult tm6 ED Course: 07/05 22:16 Patient arrived in ED. rv1 22:17 Gomez Mckeon MD is Attending Physician. rt 22:21 Roshni Temple, RN is Primary Nurse. tm6 22:24 Triage completed. tm6 22:30 Acetaminophen Sent. tm6 22:30 Basic Metabolic Panel Sent. tm6 22:30 CBC with Diff Sent. tm6 22:30 ETOH Level Sent. tm6 22:30 Hepatic Function Sent. tm6 22:30 PT-INR Sent. tm6 22:30 Ptt, Activated Sent. tm6 22:30 Salicylate Sent. tm6 22:30 EKG done, by ED staff, reviewed by Gomez Mckeon MD. Maintain EMS IV. Dressing tm6 intact. Good blood return noted. Site clean \\T\\ dry. Gauge \\T\\ site: 20g RAC. 22:30 Arm band placed on right wrist. tm6 22:39 Patient has correct armband on for positive identification. Placed in gown. Bed in low tm6 position. Call light in reach. Side rails up X2. Provided Education on: plan of care. Client placed on continuous cardiac and pulse oximetry monitoring. NIBP monitoring applied. pt skilled on. Pulse ox on. NIBP on. Noise minimized. Warm blanket given. 22:40 CPK Sent. tm6 22:49 Urine Drug Screen Sent. tm6 22:49 Urinalysis w/ reflexes Sent. tm6 22:49 Test, Urine Sent. tm6 22:49 Acetaminophen Sent. tm6 22:49 Basic Metabolic Panel Sent. tm6 22:49 CBC with Diff Sent. tm6 22:49 ETOH Level Sent. 6 22:49 Hepatic Function Sent. tm6 22:49 PT-INR Sent. tm6 22:49 Salicylate Sent. tm6 22:49 Ptt, Activated Sent. tm6 07/06 03:11 No provider procedures requiring assistance completed. IV discontinued, intact, tm6 bleeding controlled, No redness/swelling at site. Pressure dressing applied. Administered Medications: 07/05 22:40 Drug: NS 0.9% IV 1000 ml IV at 1 bolus Per protocol; 1000 mL bolus Route: IV; Rate: 1 tm6 bolus; Site: right antecubital; 07/06 00:50 Follow up: IV Status: Completed infusion; IV Intake: 1000ml km8 07/05 22:40 Drug: Ativan IVP 1 mg IVP once Route: IVP; Site: right antecubital; tm6 07/06 00:50 Follow up: Response: No adverse reaction; Anxiety decreased 00:49 Drug: NS 0.9% IV 1000 ml IV at 1 bolus Per protocol; 1000 mL bolus Route: IV; Rate: 1 km8 bolus; Site: right antecubital; 03:09 Follow up: IV Status: Completed infusion; IV Intake: 1000ml tm6 Medication: 07/05 22:32 VIS not applicable for this client. tm6 Intake: 07/06 00:50 IV: 1000ml; Total: 1000ml. 8 03:09 IV: 1000ml; Total: 2000ml. tm6 Outcome: 01:36 Discharge ordered by . rt 03:11 Discharged to home ambulatory, with family, tm6 03:11 Condition: stable 03:11 Discharge instructions given to patient, Instructed on discharge instructions, follow up and referral plans. Demonstrated understanding of instructions, follow-up care, 03:12 Patient left the ED. tm6 Signatures: Gomez Mckeon MD MD rt Lu Epps rv1 Judy Solorzano RN RN km8 Roshni Temple RN RN tm6
--- NOTE | 2023-07-07 01:36 | EDPHYS ---
Physician Documentation [facility] Name: Niecy Sibley Age: 23 yrs Sex: Female : 2000 Arrival Date: 07/06/2023 Time: 22:14 Bed 3 Private MD: ED Physician Gomez Mckeon HPI: 07/05 22:28 This 23 yrs old Female presents to ER via EMS with complaints of Palpitations. rt 22:28 Patient presents to the ED after ingesting 2 THC Gummies at about 9. Patient reported rt feeling shaky, dizzy with palpitations. Denies other acute complaints at this time, symptoms are moderate in severity, no other aggravating or alleviating factors.. Historical: - Allergies: 22:24 No Known Allergies; tm6 - PMHx: 22:24 Unable to Obtain; tm6 - PSHx: 22:24 Unable to Obtain; tm6 - Immunization history:: Adult Immunizations up to date. - Social history:: Smoking status: Patient denies any tobacco usage or history of. Patient uses Patient/guardian denies using alcohol, street drugs. ROS: 22:28 Constitutional: Negative for fever, chills, and weight loss, Respiratory: Negative for rt shortness of breath, cough, wheezing, and pleuritic chest pain, Abdomen/GI: Negative for abdominal pain, nausea, vomiting, diarrhea, and constipation, Skin: Negative for injury, rash, and discoloration, Psych: Negative for depression, anxiety, suicide ideation, homicidal ideation, and hallucinations, 22:28 Cardiovascular: Positive for palpitations, Negative for chest pain, 22:28 Neuro: Positive for dizziness, tremor, Exam: 22:28 Constitutional: This is a well developed, well nourished patient who is awake, alert, rt and in no acute distress. Head/Face: Normocephalic, atraumatic. Chest/axilla: Normal chest wall appearance and motion. Nontender with no deformity. No lesions are appreciated. Cardiovascular: Regular rate and rhythm with a normal S1 and S2. No gallops, murmurs, or rubs. Normal PMI, no JVD. No pulse deficits. Respiratory: Lungs have equal breath sounds bilaterally, clear to auscultation and percussion. No rales, rhonchi or wheezes noted. No increased work of breathing, no retractions or nasal flaring. Abdomen/GI: Soft, non-tender, with normal bowel sounds. No distension or tympany. No guarding or rebound. No evidence of tenderness throughout. Skin: Warm, dry with normal turgor. Normal color with no rashes, no lesions, and no evidence of cellulitis. MS/ Extremity: Pulses equal, no cyanosis. Neurovascular intact. Full, normal range of motion. Neuro: Awake and alert, GCS 15, oriented to person, place, time, and situation. Cranial nerves II-XII grossly intact. Motor strength 5/5 in all extremities. Sensory grossly intact. Cerebellar exam normal. Normal gait. Psych: Awake, alert, with orientation to person, place and time. Behavior, mood, and affect are within normal limits. 23:02 ECG was reviewed by the Attending Physician. rt Vital Signs: 22:22 BP 114 / 87; Pulse 140; Resp 20; Temp 97.2(TE); Pulse Ox 100% on R/A; Weight 68.04 kg; tm6 Height 5 ft. 1 in. ; Pain 0/10; 22:51 BP 127 / 78; Pulse 125; Resp 19; Pulse Ox 98% on R/A; tm6 23:17 BP 128 / 64; Pulse 126; Resp 16; Pulse Ox 98% on R/A; km8 23 00:00 BP 116 / 58; Pulse 123; Resp 16; Pulse Ox 99% on R/A; km8 00:30 BP 119 / 62; Pulse 104; Resp 16; Pulse Ox 98% on R/A; km8 01:00 BP 123 / 69; Pulse 96; Resp 16; Pulse Ox 99% on R/A; km8 02:00 BP 104 / 55; Pulse 109; Resp 17; Pulse Ox 98% on R/A; km8 02:51 BP 100 / 56; Pulse 107; Resp 19; Pulse Ox 99% on R/A; Pain 0/10; tm6 03:10 BP 112 / 70; Pulse 106; Resp 19; Temp 97.3(TE); Pulse Ox 98% on R/A; Pain 0/10; tm6 07/05 22:22 Body Mass Index 28.34 (68.04 kg, 154.94 cm) tm6 07/05 22:22 Pain Scale: Adult tm6 02:51 Pain Scale: Adult tm6 03:10 Pain Scale: Adult tm6 MDM: 07/05 22:17 Patient medically screened. rt 07/06 03:44 Differential diagnosis: Dysrhythmia, drug abuse, electrolyte disturbance, dehydration. rt Data reviewed: vital signs, nurses notes, lab test result(s), EKG, radiologic studies. Consideration of Admission/Observation Escalation of care including admission/observation considered. Patient is symptomatically improving with Ativan, IV fluids. Heart rate has significantly decreased. No evidence of rhabdo, kidney dysfunction, electrolyte disturbance, dysrhythmia. Is stable for outpatient care, return precautions discussed. I considered the following discharge prescriptions or medication management in the emergency department Medications were administered in the Emergency Department. See MAR. Test considered but Not performed: CT: Low suspicion for pulmonary embolism, CT angiogram not indicated. Counseling: I had a detailed discussion with the patient and/or guardian regarding the historical points, exam findings, and any diagnostic results supporting the discharge/admit diagnosis, lab results, the need for outpatient follow up, to return to the emergency department if symptoms worsen or persist or if there are any questions or concerns that arise at home. Response to treatment: the patient's symptoms have markedly improved after treatment. 07/05 22:23 Order name: Acetaminophen; Complete Time: 23:16 rt 07/05 22:23 Order name: Basic Metabolic Panel; Complete Time: 23:16 rt 07/05 22:23 Order name: CBC with Diff; Complete Time: 23:16 rt 07/05 22:23 Order name: ETOH Level; Complete Time: 23:16 rt 07/05 22:23 Order name: Hepatic Function; Complete Time: 23:16 rt 07/05 22:23 Order name: PT-INR; Complete Time: 23:16 rt 07/05 22:23 Order name: Test, Urine; Complete Time: 23:16 rt 07/05 22:23 Order name: Ptt, Activated; Complete Time: 23:16 rt 07/05 22:23 Order name: Salicylate; Complete Time: 23:16 rt 07/05 22:23 Order name: Urinalysis w/ reflexes; Complete Time: 23:16 rt 07/05 22:23 Order name: Urine Drug Screen; Complete Time: 23:16 rt 07/05 22:23 Order name: CPK; Complete Time: 23:16 rt 07/05 22:23 Order name: EKG; Complete Time: 22:24 rt 07/05 22:23 Order name: EKG - Nurse/Tech; Complete Time: :28 rt 07/05 22: Order name: IV Saline Lock; Complete Time: :28 rt 07/05 22: Order name: Labs collected and sent; Complete Time: 22:28 rt 07/05 22:23 Order name: Suicide Screening (Door); Complete Time: 22:40 rt EC/22 23:02 Rate is 149 beats/min. Rhythm is regular, Sinus tachycardia. QRS [place] is Normal. QRS rt interval is normal. QT interval is normal. No Q waves. No ST changes noted. Administered Medications: :40 Drug: NS 0.9% IV 1000 ml IV at 1 bolus Per protocol; 1000 mL bolus Route: IV; Rate: 1 tm6 bolus; Site: right antecubital; 07/06 00:50 Follow up: IV Status: Completed infusion; IV Intake: 1000ml km8 07/05 22:40 Drug: Ativan IVP 1 mg IVP once Route: IVP; Site: right antecubital; tm6 07/06 00:50 Follow up: Response: No adverse reaction; Anxiety decreased km8 00:49 Drug: NS 0.9% IV 1000 ml IV at 1 bolus Per protocol; 1000 mL bolus Route: IV; Rate: 1 km8 bolus; Site: right antecubital; 03:09 Follow up: IV Status: Completed infusion; IV Intake: 1000ml tm6 Disposition Summary: 07/07/23 01:36 Discharge Ordered Notes: Location: Home rt Problem: new rt Symptoms: have improved rt Condition: Stable rt Diagnosis - Adverse effect of cannabinoid rt Followup: rt - With: Private Physician - When: 2 - 3 days - Reason: Discharge Instructions: - Discharge Summary Sheet rt - Cannabis Use Disorder rt Forms: - Medication Reconciliation Form rt - Thank You Letter rt - Antibiotic Education rt - Prescription Opioid Use rt - Patient Portal Instructions rt - Leadership Thank You Letter rt Signatures: Dispatcher [employer] Gomez Márquez MD MD rt Judy Solorzano RN RN km8 Roshni Temple RN RN tm6
[2023-07-07 03:52] VITALS: BP 112/70; TEMP 97.3; O2SAT 98
--- NOTE | 2023-07-09 14:22 | EKG ---
Test Date: 2023-07-06 Test Time: 21:18:31 Intermediate Manager: MICHAEL MEASUREMENT RESULTS: Intervals: Rate: 149 LA: QRSD: 76 QT: 340 QTc: 535 [place]: P: LA: QRS: 99 T: 111 INTERPRETIVE STATEMENTS: Supraventricular tachycardia Lateral infarct, age undetermined T wave abnormality, consider inferior ischemia Abnormal ECG Compared to ECG 06/16/2023 10:53:59 Myocardial infarct finding now present T-wave abnormality now present Possible ischemia now present Sinus rhythm no longer present Sinus arrhythmia no longer present Electronically Signed On 07-09-23 14:15:37 CDT by Neri Curiel
== END ==
LOC: ER 22:14
DX: R00.2 Palpitations (principal); T40.725A Adverse effect of synthetic cannabinoids, initial encounter
CPT/HCPCS: 85025; 81001; 80048; 36415; 82550; 81025; 85610; 80076; 85730; 80307; 80143; 80179; 82077; J7030; 93005; 96361; 96374; 99285

== ENCOUNTER 2023-10-05 09:30 | Emergency (ER) | payer OTHER ==
--- OUTSIDE RECORDS SUMMARY | 2023-10-05 09:35 | XMS REPORT | Continuity of Care Document ---
Author Name Unknown Address [address] [facility] [address] [place] [address] [facility] thconnect Address [address] [facility] [address] [place] [address] Care Team Providers Care Machine Overhauler Name Role Phone PCP, PATIENT DOES NOT HAVE A Primary Care Physic ruthann Unavailable DOMINIQUE TURK Attending Clinician Unavailable VENTURA BARRAZA Attending Clinician Unavailab Chi Devlin Attending Clinician Unavailable ALMA SUTHERLAND Attending Clinician Unavailab Alma Mann DO Attending Clinician [phone] Mahendra Johnson MD Attending Clinician [phone] Doctor Unassigned, [place] Attending Clinician U Triny Machado MD Attending Clinician [phone] TRINY DAMON Attending Clinician Unavailable Stephany Dee Attending Clinician UnavailMirian Villegas Attending Clinician Unavailable Cortez Salomon Attending Clinician [phone] Sarahi Platt Attending Clinician Unavailable MAL REBOLLAR Attending Clinician UnavailChi Oliver Admitting Clinician Unavailable Cortez Salomon Unavailable [id number] Payers Payer Name Policy Type Policy Number Effective Date Expirati on Date Source [facility] [id number] 2020 00:00:00 [place] [facility] [id number] 2023 00:00:00 Problems Condition Name Condition Details Condition Category Status Onset Date Resolution Date Last Treatment Date Treating Clinician Comments Source Supervisio n of other normal Supervisio n of other normal Disease Active 8 00:00: 00 [facility] 13 weeks gestation of 13 weeks gestation of Disease Active 8 00:00: 00 [facility] Sasha of vagina Condition Active 16 00:00: 00 2020-01-05 16:24:47 Aime Cortez Wakozi [facility] Std exposure Condition Active 12-30 00:00: 00 2020-01-05 16:24:47 AimeCortez Wakozi [facility] Dysuria Condition Active 16 00:00: 00 2020-01-05 16:24:47 Aime Cortez Wakozi [facility] Depo Provera contracept john, initial prescripti on Condition Active 12-30 00:00: 00 2020-01-05 16:24:47 Cortez Salomon [employer] Overweight Condition Active 16 00:00: 00 2020-01-05 16:24:47 Aime Cortez Wakozi [facility] 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 Repeat postpartu m [facility] 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 Repeat postpartu m [facility] Allergies, Adverse Reactions, Alerts Allergy Name Allergy Type Status Severity Reaction(s) Onset Date Inactive Date Treating Clinician Comments Source No Known Allergie s DA Active U 2020-04 2 00:00: 00 [facility] are [facility] st NO KNOWN ALLERGIE S Drug Class Active [facility] Social History Social Habit Start Date Stop Date Quantity Comments Source ASSERTION 2020-09-21 00:00:00 [facility] to SARS-[facility]2 (event) [facility] Alcoholic beverage intake 2023-08-22 00:00:00 2023-08-22 00:00:00 Lifetime non-drinker (finding) [facility] History of Social function 2023-08-22 00:00:00 2023-08-22 00:00:00 [facility] Tobacco use and exposure 2020-12-09 00:00:00 2020-12-09 00:00:00 Smokeless tobacco non-user [facility] Alcohol intake 2020-12-09 00:00:00 2020-12-09 00:00:00 Lifetime non-drinker (finding) [facility] time of call 2020-03-01 11:51:55 2020-03-01 11:51:55 03/01/2020 11:52 AM [facility] condom use 2019-12-31 11:30:08 2019-12-31 11:30:08 Sometimes [facility] Ever had sexual intercourse? 2019-12-31 11:30:08 2019-12-31 11:30:08 Yes [facility] drug use, illicit 2019-12-31 11:30:08 2019-12-31 11:30:08 Never [facility] alcohol use 2019-12-31 11:30:08 2019-12-31 11:30:08 Currently [facility] is there any chance that you could be ? 2019-12-31 11:30:08 2019-12-31 11:30:08 No [facility] if the patient is using/has used a vaping item, Current, Former, Never Used, Not asked 2019-12-31 11:30:08 2019-12-31 11:30:08 No [facility] Sex assigned at 2000 00:00:00 2000 00:00:00 [facility] Smoking Status Start Date Stop Date Source Never smoked tobacco [facility] Medications Ordered Medication Name Filled Medication Name Start Date Stop Date Current Medication? Ordering Clinician Indication Dosage Frequency Signature (SIG) Comments Components Source doxycycline monohydrate 100 mg capsule 08 00:00: 00 08-29 04:59 :00 Yes [id number] 100mg Take 1 capsule by mouth in the morning and 1 capsule in the evening. Do all this for 7 days. [facility] pramoxine (PROCTOFOAM ) 1 % foam 2020-04 00:00: 00 Yes [id number] Insert into rectum every 2 (two) hours as needed for Rectal itching/pa in. [facility] vit calc,iron,f olic ( VITAMIN ORAL) 12-09 09:25: 53 Yes Take by mouth. 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 REPAIRER A (MEDROXYPRO GESTERONE ACETATE) 150 MG/ML SUSP 12-30 00:00: 00 Yes 150mg every 3 months (13 weeks) [facility] Immunizations Ordered Immunization Name Filled Immunization Name Date Status Comments Source HPV9 Unknown Completed [facility] HPV9 Unknown Completed [facility] Vital Signs Vital Name Observation Time Observation Value Comments S ourshante Systolic blood pressure 2023-08-22 18:41:00 126 mm[Hg] [facility] Diastolic blood pressure 2023-08-22 18:41:00 76 mm[Hg] [facility] Heart rate 2023-08-22 18:41:00 82 /min [facility] Body temperature 2023-08-22 18:41:00 36.67 Analilia [facility] Respiratory rate 2023-08-22 18:41:00 18 /min [facility] Body height 2023-08-22 18:41:00 162.6 cm [facility] Body weight 2023-08-22 18:41:00 68.493 kg [facility] BMI 2023-08-22 18:41:00 25.92 kg/m2 [facility] Systolic blood pressure 2021-02-27 00:28:00 154 mm[Hg] [facility] Diastolic blood pressure 2021-02-27 00:28:00 93 mm[Hg] [facility] Heart rate 2021-02-27 00:28:00 101 /[facility] Body temperature 2021-02-27 00:28:00 36.56 Analilia [facility] Respiratory rate 2021-02-27 00:28:00 18 /min [facility] Body weight 2021-02-27 00:28:00 68.04 kg [facility] BMI 2021-02-27 00:28:00 29.29 kg/m2 [facility] Oxygen saturation in Arterial blood by Pulse oximetry 2021-02-27 00:28:00 100 /min [facility] Systolic blood pressure 2020-12-27 05:17:55 104 mm[Hg] [facility] Diastolic blood pressure 2020-12-27 05:17:55 66 mm[Hg] [facility] Heart rate 2020-12-27 05:17:55 106 /min [facility] Body temperature 2020-12-27 05:17:55 37 Analilia [facility] Respiratory rate 2020-12-27 05:17:55 18 /min [facility] Oxygen saturation in Arterial blood by Pulse oximetry 2020-12-27 05:17:55 98 /min [facility] Body height 2020-12-27 02:31:56 152.4 cm [facility] Body weight 2020-12-27 02:31:56 63.504 kg [facility] BMI 2020-12-27 02:31:56 27.34 kg/m2 [facility] blood pressure, diastolic 2019-12-31 11:30:08 72 mm[Hg] [facility] blood pressure, systolic 2019-12-31 11:30:08 105 mm[Hg] [facility] oxygen saturation, oximetry 2019-12-31 11:30:08 98 /min [facility] pulse rate 2019-12-31 11:30:08 78 [facility] 2019-12-31 11:30:08 oral [facility] temperature E&M 2019-12-31 11:30:08 98.2 [degF] [facility] weight E&M 2019-12-31 11:30:08 139.13 [lb_av] [facility] weight in kilograms E&M 2019-12-31 11:30:08 63.24 kg [facility] height in centimeters E&M 2019-12-31 11:30:08 152.40 cm [facility] Procedures Procedure Date / Time Performed Performing Clinician Source GARDASIL 9 (HPV 9V) VACCINE 2023-08-22 19:03:13 Dominique Turk [facility] [id number] 2021-06-02 00:00:00 [facility] NOTICE OF PRIVACY PRACTICES 2021-02-27 00:02:02 Doctor Unassigned, [place] [facility] CONSENT/REFUSAL FOR DIAGNOSIS AND TREATMENT 2021-02-27 00:00:13 Doctor Unassigned, [place] [facility] CBC WITH DIFF 2020-12-27 03:54:00 Mahendra Johnson [facility] ABORH CONFIRMATION (LAB ONLY) 2020-12-27 03:50:00 Mahendra Johnson [facility] CT CERVICAL SPINE WO CONTRAST 2020-12-27 03:48:43 Mahendra Johnson [facility] CT THORACIC SPINE WO CONTRAST 2020-12-27 03:48:43 Mahendra Johnson [facility] HB ABO GROUPING 2020-12-27 03:15:00 [facility] 2020-12-27 03:12:00 [facility]dra [facility] COVID-19 (ID NOW RAPID TESTING) 2020-12-27 03:12:00 Mahendra Johnson [facility] LIPASE 2020-12-27 02:44:00 Mahendra [facility] COMP. METABOLIC PANEL (54688) 2020-12-27 02:44:00 Mahendra Johnson [facility] PROTHROMBIN TIME / INR 2020-12-27 02:44:00 Rik Johnson [facility] ACTIVATED PARTIAL THRMPLAS RDAHA 2020-12-27 02:44:00 Mahendra Johnson [facility] Encounters Start Date/Time End Date/Time Encounter Type Admission Type Attending [facility] Care Facility Care Department Encounter ID Source 2021-02-14 22:07:35 Emergency [facility] [id number] [facility] 2023-10-05 07:56:53 2023-10-05 07:56:53 Outpatient [facility] [id number] Sreedhar Isaac 2023-09-11 13:45:00 2023-09-11 13:45:00 Outpatient DOMINIQUE HARPER [facility] [id number] [facility] 2023-08-22 13:30:00 2023-08-22 14:07:14 Outpatient DOMINIQUE HARPER [facility] [id number] [facility] 2023-08-22 13:30:00 2023-08-22 14:07:14 Office Visit Dominique Turk [facility] [id number] [facility] 2022-07-17 09:56:32 2022-07-17 09:56:32 Outpatient [facility] [id number] Sreedhar Isaac 2021-09-05 14:30:00 2021-09-05 14:30:00 Outpatient VENTURA BARRAZA [id number] Elyssa Marie 2021-06-01 22:58:00 2021-06-04 12:45:00 Inpatient EM Chi Constantino HCANW OBPP [id number] [facility] are [facility] 2021-04-14 10:58:00 2021-04-14 13:06:00 Emergency EM Chi Constantino HCANW LORRAINE [id number] [facility] are [facility] 2021-02-26 18:21:00 2021-02-26 18:57:00 Emergency X ALMA SUTHERLAND [facility] ERT [id number] [facility] 2021-02-26 18:21:00 2021-02-26 18:57:00 Emergency ChapitoAdelaidera Louie [facility] [id number] [id number] [id number] [facility] 2021-01-28 09:00:00 2021-01-28 09:00:00 Outpatient P [facility] [id number] [facility] 2020-12-26 21:31:00 2020-12-27 01:31:00 Emergency Mahendra Johnson [facility] [id number] [id number] [id number] [id number] [facility] 2020-12-17 00:00:00 2020-12-17 00:00:00 Orders Only Doctor Unassigned, [place] [facility] [id number] [id number] [id number] [id number] [facility] 2020-12-13 08:15:00 2020-12-13 08:15:00 Outpatient R [facility] [id number] [facility] 2020-12-09 08:32:35 2020-12-09 10:20:13 [facility]on [facility] [id number] [id number] [facility] 2020-12-09 09:30:00 2020-12-09 09:30:00 Outpatient R TRINY DAMON [facility] [id number] [facility] 2020-12-09 00:00:00 2020-12-09 00:00:00 Orders Only Doctor Unassigned, [place] [facility] [id number] [id number] [id number] [id number] [facility] 2020-03-01 00:00:00 2020-03-01 00:00:00 Office Visit Stephany Dee [facility] Encounter/ [id number] [facility] 2020-03-01 00:00:00 2020-03-01 00:00:00 Office Visit Stephany Dee Leslie [facility] Encounter/ [id number] [facility] 2019-12-31 00:00:00 2019-12-31 00:00:00 Office Visit Cortez Salomon [facility] Encounter/ [id number] [facility] 2019-12-31 00:00:00 2019-12-31 00:00:00 Office Visit Cortez Salomon [facility] Encounter/ [id number] [facility] 2019-12-31 00:00:00 2019-12-31 00:00:00 Office Visit Cortez Salomon [facility] Encounter/ [id number] [facility] 2019-12-31 00:00:00 2019-12-31 00:00:00 Office Visit Cortez Salomon Guadalupe [facility] Encounter/ [id number] [facility] [employer] 2019-06-25 19:18:00 2019-06-26 00:21:00 Emergency E MAL REBOLLAR [facility] [id number] [facility] 2019-05-07 22:18:00 2019-05-07 22:18:00 Emergency E KM KM [id number] Andrea braxton Results Test Description Test Time Test Comments Results Result Co mments Source RAPID PLASMA [id number] 07:13:00* Test Item Value Reference Range Interpretation Comme nts RAPID PLASMA REAGIN (test co de = RPR) NEGATIVE NEGATIVE AG HEPATITIS B [id number] 04:21:00* Test Item Value Reference Range Interpretation Comme nts AG HEPATITIS B SURFACE (test code = HBSAG) NEGATIVE NEGATIVE AB HIV 1 04:21:00* Test Item Value Reference Range Interpretation Comme nts AB HIV 1 2 (test code = VON67JW) NEGATIVE NEGATIVE AB RUBELLA [id number] 03:00:00* Test Item Value Reference Range Interpretation [...] require testing by alternate methods CBC W/AUTO [id number] 02:02:00* Test Item Value Reference Range Interpretation [...] 3/uL 0.0-0.1 N COVID 19 Asymptomatic IH [id number] 23:53:00* Test Item Value Reference Range Interpretation [...] signs and symptoms consistent withCOVID-19.Specimen Source: Nasopharyngeal (OPHTHALMIC ASSISTANT) Swab URINALYSIS [id number] 11:49:00* Test Item Value Reference Range Interpretation [...] = 20) O Negative Performed at [facility] B Laboratory Services - [facility] Blood [address] [place] [address]Mtgr Free: [phone] No. [id number] [facility] WITH [id number] 04:13:06* Test Item Value Reference Range Interpretation Comme nts WBC (test code = 6690-2) See_Comment [Automated messa ge] The system which generated this result transmitted reference range: 4.30 - 11.10 10*3/?L. The reference range was not used to interpret this result as normal/abnormal. RBC (test code = 789-8) See_Comment L [Automated messa ge] The system which generated [...] g/dL 31.6-35.1 H RDW-SD (test code = 62600-7) 42.0 fL 39.0-49.9 RDW-CV (test code = 788-0) 13.6 % 12.0-15.5 PLT (test code = 777-3) See_Comment [Automated iRulea ge] The system which generated this result transmitted reference range: 166 - 358 10*3/?L. The reference range was not used to interpret this result as normal/abnormal. MPV (test code = 74111-3) 11.6 fL 9.5-12.9 NRBC/100 WBC (test code = 2397912984) See_Comment [Automated [employer] ssage] The system which generated this result transmitted reference range: 0.0 - 10.0 /100 WBCs. The reference range was not used to interpret this result as normal/abnormal. NRBC x10^3 (test code = 8757744150) <0.01 See_Comment [Automated iRulea ge] The system which generated this result transmitted reference range: 10*3/?L. The reference range was not used to interpret this result as normal/abnormal. GRAN MAT (NEUT) % (test code = 770-8) 71.1 % IMM GRAN % (test code = 9747649986) 1.00 % LYMPH % (test code = 736-9) 20.2 % MONO % (test code = 5905-5) 6.7 % EOS % (test code = 713-8) 0.7 % BASO % (test code = 706-2) 0.3 % GRAN MAT x10^3(ANC) (test code = 1935093849) 7.16 10*3/uL 1.88-7.09 H IMM GRAN x10^3 (test code = 9300125711) 0.10 10*3/uL 0.00-0.06 H LYMPH x10^3 (test code = 731-0) 2.04 10*3/uL 1.32-3.29 MONO x10^3 (test code = 742-7) 0.68 10*3/uL 0.33-0.92 EOS x10^3 (test code = 711-2) 0.07 10*3/uL 0.03-0.39 BASO x10^3 (test code = 704-7) 0.03 10*3/uL 0.01-0.07 Lab Interpretation (test code = 54482-7) Abnormal [facility] THRMPLAS [id number] 04:07:28* Test Item Value Reference Range Interpretation Comme [facility] APTT Patient (test code = 3173-2) See_Comment [Automated message] The system which generated this result transmitted reference range: 23 - 38 Seconds. The reference range was not used to interpret this result as normal/abnormal. JOSE GUADALUPE (test code = JOSE GUADALUPE) The [facility] patient population mean normal value for aPTT is 30 seconds. Lab Interpretation (test code = 09994-6) Normal [facility] HospitalPROT[facility]BIN TIME / [id number] 04:04:25* Test Item Value Reference Range Interpretation Comme [facility] PROTIME PATIENT (test code = 5964-2) See_Comment [Automated messa ge] The system which generated this result transmitted reference range: 12.0 - 14.7 Seconds. The reference range was not used to interpret this result as normal/abnormal. INR (test code = 6301-6) Normal INR <1.1; Warfarin Therapeutic range 2.0 to 3.0 or 2.5 to 3.5, depending upon the indications. Lab Interpretation (test code = 57730-8) Normal [facility] and Screen - ONCE [id number] 04:02:45* Test Item Value Reference Range Interpretation Comme [facility] ABO & RH (test code = 20) O Negative Performed at [facility] Laboratory Services - [facility] Blood [address] [place] [address]Ovvx Free: [phone] No. [id number] IAT (test code = 1185) Negative Performed at [facility] Laboratory [facility] Blood [address] [place] [address]Idae Free: [phone] No. [id number] [facility] HospitalCOMP. METABOLIC PANEL (18379)2020-12-27 03:49:44* Test Item Value Reference Range Interpretation Comme nts NA (test code = 8350635637) 137 mmol/L 135-145 K (test code = 1054698167) 3.7 mmol/L 3.5-5.0 CL (test code = 6078227000) 107 mmol/L 98-108 CO2 TOTAL (test code = 1004806212) 23 mmol/L 23-31 AGAP (test code = 8931337321) 2-16 BUN (test code = 8454020193) 9 mg/dL 7-23 GLUCOSE (test code = 9227390543) 92 mg/dL 70-110 CREATININE (test code = 8075383287) 0.46 mg/dL 0.50-1.04 L TOTAL BILI (test code = 4482184065) 0.4 mg/dL 0.1-1.1 CALCIUM (test code = 3016155635) 9.1 mg/dL 8.6-10.6 T PROTEIN (test code = 8005403887) 7.5 g/dL 6.3-8.2 ALBUMIN (test code = 2597279881) 3.9 g/dL 3.5-5.0 ALK PHOS (test code = 8034035984) 79 U/L 34-122 ALTv (test code = 1742-6) 26 U/L 5-35 AST(SGOT) (test code = 0859324169) 43 U/L 13-40 H eGFR (test code = 0378592849) mL/min/1.73m2 JOSE GUADALUPE (test code = JOSE [...] imaging tests). Lab Interpretation (test code = 81160-4) Abnormal [facility]2021-09-13 03:49:44* Test Item Value Reference Range Interpretation Comme nts LIPASE (test code = 9941251480) 55 U/L 0-220 Lab Interpretation (test cod e = 10398-1) Normal [facility]ine [id number] 12:19:00* Test Item Value Reference Range Interpretation Comme nts urine culture (test code = 630-4) 1,000-9,000 CFU/ML of Group B Streptococcus iso... A [facility] plasma reagin antibody, [id number] 12:19:00* Test Item Value Reference Range Interpretation Comme nts rapid plasma reagin antibody , serum (test code = 5291-0) NON-REACTIVE NON-REACTIVE [facility], Signal to [id number] 12:19:00* Test Item Value Reference Range Interpretation Comme nts Hepatitis C Antibody, Signal to Cut-Off (test code = 345260) 0.02 <1.00 [facility], [id number] 12:19:00* Test Item Value Reference Range Interpretation Comme nts hepatitis C antibody, serum (test code = 5199-5) NON-REACTIVE NON-REACTIVE [facility] surface [id number] 12:19:00* Test Item Value Reference Range Interpretation Comme nts hepatitis B surface antigen (test code = 79) NON-REACTIVE NON-REACTIVE N [facility]-CMIA (Chemiluminescent Microparticle Immuno Assay) 2019-12-31 12:19:00* Test Item Value Reference Range Interpretation Comme nts HIV-CMIA (Chemiluminescent Microparticle Immuno Assay) (test code = 417982) NON-REACTIVE NON-REACTIVE N [facility]villeNeisseria gonorrhoeae DNA [id number] 12:19:00* Test Item Value Reference Range Interpretation Comme nts Neisseria gonorrhoeae DNA pr obe (test code = 15841-1) NOT DETECTED NOT DETECTED N [facility]lamydia DNA [id number] 12:19:00* Test Item Value Reference Range Interpretation Comme nts chlamydia DNA probe (test co de = 07158-3) NOT DETECTED NOT DETECTED N [facility]ville[facility] HCG, urine, [id number] 11:30:08* Test Item Value Reference Range Interpretation Comme nts beta HCG, urine, semiquantit ative (test code = 2106-3) negative [facility], date of [id number] 11:30:08* Test Item Value Reference Range Interpretation Comme nts HIV test, date of last (test code = 79414) 2018 [facility] Notes Date/Time Note Provider Source 2021-06-04 09:19:00 [id number]:19:00 [facility] ([facility])Med Order Sheet REPORT #: [id number] REPORT STATUS: Signed DATE: 06/04/21 TIME: 918 PATIENT: MALA GAGNON UNIT #: [id number] #: [id number] ROOM #: N.0280 BED: 1 : 98 AGE: 20 SEX: F ATTEND: Chi Constantino MD ADM AUTHOR: Chi Constantino MD ATTENTION EDITS and/or ADDENDA must be made in Patient Keeper for this note. Edits and ammendments created in [facility] are not visible in Patient Keeper or the legal medical record (HPF). Discharge Medication Reconciliation Discharge Meds Rec Completed. No Reconciled Orders.The following Hospital Medications have not yet been reconciled:Acetaminophen Tab (Tylenol Tab) 1000MG PO Q4H PRN mild pain (scale 1-3)Benzocaine Topical [place] (Americaine Topical [place]) 1APPLIC Topical ASDIR PRNepisiotomy discomfortCarboprost Inj (Hemabate Inj) 250MCG IM Q15M X 8 doses PRN hemorragediphenhydrAMINE Cap (Benadryl Cap) 25MG PO Q6H PRN itchingDocusate Sodium Cap (Colace Cap) 200MG PO DAILY PRN constipation (secondline)HC/Pramoxine Cream 2.5% (Analpram-HC Cream 2.5%) 1APPLIC Topical ASDIR PRNperineal discomfortHYDROcod/APAP 5/325 Tab ([place] 5/325 Tab) 1TAB PO Q4H PRN moderate pain(score 4-6)HYDROcod/APAP 5/325 Tab ([place] 5/325 Tab) 2TAB PO Q4H PRN pain [...] this note. Edits and ammendments created in [facility] are not visible in Patient Keeper or the legal medical record ([facility]). RPT #: [id number] OF REPORTCLClinical obwn4047-36-44L14:19:00N.CO-[id number] ailable for patient cpulZJASDBMFSEEQPO9631-94-33N52:19:34 [facility]ANW 2021-06-04 09:17:00 [id number] l228nykKKm5lnCoB+ntsZ0j7cbyI9 H3ZngDbZqz8Xp4vPSXEqMeSoNMh9249-55-06I82:17:00 [facility])OB Progress Note REPORT #: [id number] REPORT STATUS: Signed DATE: 06/04/21 TIME: 916 PATIENT: MALA GAGNON UNIT #: [id number] #: [id number] ROOM #: N.0280 BED: 1 : 98 AGE: 20 SEX: F ATTEND: Chi Constantino MD [facility] AUTHOR: Chi Constantino MD ATTENTION EDITS and/or ADDENDA must be made in Patient Keeper for this note. Edits and ammendments created in [facility] are not visible in Patient Keeper or the legal medical record ([facility]). -- OBJECTIVE -- VITALS (06/03 09:17 - 06/04 09:17):Temperature F: 98.1Temperature C: 37.0 (36.4 - 37.0)Pulse Rate 80 (80 - 97)Respiratory rate: 16 (16 - 18)BP: 127/85 (105/69 - 131/86) -- DATA -- VITALS Pulse Rate 06/04/21 09:02 06/04/21 07:26 80 06/03/21 20:59 06/03/21 20:58 06/03/21 20:06 89 06/03/21 15:57 92 06/03/21 12:29 97 06/03/21 11:26 97 06/03/21 08:21 88 06/03/21 07:33 88SPO2 %: 06/04/21 09:02 06/04/21 07:26 [...] this note. Edits and ammendments created in [employer] are not visible in Patient Keeper or the legal medical record ([facility]). RPT #: [id number] OF REPORTPRProgress oumh9120-14-50Z27:17:00N.CF-[id number] ailable for patient gkxhTQHRUNYEBKQOLJ3346-66-40U33:18:43 HCANW 2021-06-03 12:57:00 [id number] p1ejzbFAgJfrjLZyxX1Gyyv/f2A6D esnNP+Qovrmk5THIUwJ+95eWqCa7523-71-90V01:57:00 [facility] ([facility])OB Progress Note REPORT #: [id number] REPORT STATUS: Signed DATE: 06/03/21 TIME: 1257 PATIENT: MALA GAGNON UNIT #: [id number] #: [id number] ROOM #: N.0280 BED: 1 : 98 AGE: 20 SEX: F ATTEND: Chi Constantino MD ADM AUTHOR: Chi Constantino MD ATTENTION EDITS and/or ADDENDA must be made in Patient Keeper for this note. Edits and ammendments created in [employer] are not visible in Patient Keeper or the legal medical record ([facility]). -- OBJECTIVE -- VITALS (06/02 [...] this note. Edits and ammendments created in [employer] are not visible in Patient Keeper or the legal medical record ([facility]). RPT #: [id number] OF REPORTPRProgress csbt3891-17-55I32:57:00N.KM-[id number] ailable for patient pbovEWGNEJBMUXBIFQ1568-18-93D01:00:38 [facility] 2021-06-02 13:43:00 [id number] i4MnV8MZK0K5o9KZRXedSKj+vm4cj gAnrxxP/NCqmdUhe6xNGweK4nxf3872-12-76D68:43:00 [facility] ([facility])Med Order Sheet REPORT #: [id number] REPORT STATUS: Signed DATE: 06/02/21 TIME: 1343 PATIENT: MALA GAGNON UNIT #: [id number] #: [id number] ROOM #: N.1204 BED: 1 : 98 AGE: 20 SEX: F ATTEND: Chi Constantino MD ADM AUTHOR: James Nobles MD ATTENTION EDITS and/or ADDENDA must be made in Patient Keeper for this note. Edits and ammendments created in [facility] are not visible in Patient Keeper or [...] X 1 doses PRN mild pain1-3Benzocaine Topical [place] ([place]aine Topical [place]) 1 APPLIC Topical asdir PRN episiotomy discomfort [...] APPLIC Topical asdir PRNperineal discomfortHYDROcod/APAP 5/325 Tab ([place] 5/325 Tab) 1 TAB PO q4h PRN moderate pain(score 4-6) (HYDROCODONE/APAP 5/325CAUTION: DO NOT EXCEED 4000 MG DANIELITO...)HYDROcod/APAP 5/325 Tab ([place] 5/325 Tab) 1TAB PO PACU ONCE X 1 doses PRNmoderate pain 4-6HYDROcod/APAP 5/325 Tab ([place] 5/325 Tab) 2 TAB PO q4h PRN pain score 7-10 orcramping (HYDROCODONE/APAP 5/325CAUTION: DO NOT EXCEED 4000MG ACET...)HYDROcod/APAP 5/325 Tab ([place] 5/325 Tab) 2TAB PO PACU ONCE X [...] this note. Edits and ammendments created in [employer] are not visible in Patient Keeper or the legal medical record ([facility]). RPT #: [id number] OF REPORTCLClinical lzbm7409-62-84J39:43:00N.RK-[id number] ailable for patient nihcGEZUEDAVTJNQRA0325-13-00J45:43:31 [facility] 2021-06-02 13:42:00 [id number]/DL qdIH36B7dW+lVVP2Jrj+HMBVGZYYB gtvQE9qEYp0m/lJHHx8BH5r72xT0019-82-64M81:42:00 [facility] #: [id number] REPORT STATUS: Signed DATE: 06/02/21 TIME: 1342 PATIENT: MALA GAGNON UNIT #: [id number] #: [id number] ROOM #: N.1204 BED: 1 : 98 AGE: 20 SEX: F ATTEND: Chi Constantino MD ADM AUTHOR: James Nobles MD ATTENTION EDITS and/or ADDENDA must be made in Patient Keeper for this note. Edits and ammendments created in [employer] are not visible in Patient Keeper or the legal medical record ([facility]). -- DELIVERY -- PERFORMED BY:James Nobles MD [...] this note. Edits and ammendments created in [facility] are not visible in Patient Keeper or the legal medical record ([facility]). [facility] #: [id number] OF REPORTCLClinical pxqq6944-87-59B57:42:00N.RP-[id number] ailable for patient zbqaMJPYQWPCRGVLDA2723-77-97Z55:43:51 [facility] 2021-06-02 13:41:00 [id number] gBYtInikVX+1W2VcGLDxMuBs7QNq4 QLxyXwkfG8VK4hqzKXFcWWi7B3X5986-60-33P57:41:00 [facility] REPORT #: [id number] REPORT STATUS: Signed DATE: 06/02/21 TIME: 1341 PATIENT: MALA GAGNON UNIT #: [id number] #: [id number] ROOM #: N.1204 BED: 1 : 98 AGE: 20 SEX: F ATTEND: Chi Constantino MD ADM AUTHOR: James Nobles MD ATTENTION EDITS and/or ADDENDA must be made in Patient Keeper for this note. Edits and ammendments created in [employer] are not visible in Patient Keeper or the legal medical record ([facility]). Admission Medication Reconciliation -- CONTINUED / CHANGED HOME MEDICATIONS -- Home: Vitamin Tab ( Vitamin Tab) 1 TAB PO DAILYHosp: Vitamin Tab ( Vitamin Tab) 1 TAB PO DAILY at 1341ATTENTION EDITS and/or ADDENDA must be made in Patient Keeper for this note. Edits and ammendments created in [employer] are not visible in Patient Keeper or the legal medical record ([facility]). [facility] #: [id number] OF REPORTCLClinical [id number]:41:00N.XR-[id number] ailable for patient qnixQCYIVQHLNEZVQE4164-19-03P90:41:20 [facility] 2021-06-01 22:56:00 [id number] k4gFsCM9lU67YBLaVjfTdWpjs+Njy zZveLUQvByqW6vfUCBqPVbeXPyJ1022-96-18O05:56:00 [facility] Physical REPORT #: [id number] REPORT STATUS: Signed DATE: 06/01/21 TIME: 2255 PATIENT: MALA GAGNON UNIT #: [id number] #: [id number] ROOM #: BED: : 98 AGE: 20 SEX: F ATTEND: Chi Constantino MD ADM AUTHOR: Radha Ratliff MD ATTENTION EDITS and/or ADDENDA must be made in Patient Keeper for this note. Edits and ammendments created in [employer] are not visible in Patient Keeper or the legal medical record ([facility]). -- HISTORY -- ADMISSION DATE:2021-06-01 CHIEF COMPLAINT:"My [...] EXAM- DILATION:4 EFFACEMENT:50 % STATION:-3 -UTERINE ACTIVITY- MONITOR:[place] FREQUENCY (DESCRIPTION):Irregular -- ASSESSMENT AND PLAN -- [...] this note. Edits and ammendments created in [employer] are not visible in Patient Keeper or the legal medical record ([facility]). [facility] #: [id number] OF REPORTHPHistory and physical htxvgjnynav1831-89-88W64:56:00N.EA-[id number] 608AVAvailable for patient oolzIYYPSDSQBLFIGT8757-74-14O10:03:38 [facility]
[2023-10-05] MEDS ORDERED: ONDANSETRON 4 MG/2 ML VIAL ONE (10:10)
[2023-10-05] MEDS ORDERED: NA CHLORIDE 0.9% 2,000 ML ONE (10:11)
[2023-10-05 10:22] LABS: Specific Gravity > 1.030 (1.005-1.030)
[2023-10-05 10:25] LABS: Specific Gravity > 1.030 (1.005-1.030); Urine Bacteria <20 /HPF (<20); Urine Bilirubin NEGATIVE (Negative); Urine Blood Negative (Negative); Urine Clarity Extremely Turbid (Clear); Urine Color Yellow (Yellow); Urine Culture Reflex Order REFLEXED; Urine Glucose NEGATIVE (Negative); Urine Ketones NEGATIVE (Negative); Urine Microscopic Reflex YN ORDER UMIC; Urine Mucus Slight /HPF (None Seen); Urine Nitrite NEGATIVE (Negative); Urine Protein TRACE (Negative); Urine RBC None Seen /HPF (None Seen); Urine Urobilinogen Normal (Normal); Urine pH 6.5 (5.0-7.0)
[2023-10-05 10:34] LABS: Absolute Eosinophils 0.1 K/uL (0-0.5); Absolute Lymphocytes (CBC) 1.3 K/uL (0.7-4.9); Absolute Monocytes 0.9 K/uL (0.1-1.3); Basophils % 0.4 % (0-1.3); Hematocrit 35.5 % (36.0-45.0); Hemoglobin 11.7 g/dL (12.0-15.0); Lymphocytes % 11.3 % (15.3-44.8); MCH 28.1 pg (27.0-35.0); MCV 85.2 fL (80-100); MPV 9.6 fL (7.6-11.3); Monocytes % 8.1 % (3.3-12.3); Neutrophils % 79.2 % (41.7-73.7); Platelets 246 thou/uL (152-406); RBC Red Blood Cell Count 4.17 M/uL (3.86-4.86); Red Cell Distribution Width 13.6 % (12.1-15.2)
[2023-10-05 10:50] LABS: Albumin 3.6 g/dL (3.4-5.0); Albumin/Globulin Ratio 0.9 (1.1-1.8); Anion Gap 5.7 mEq/L (5.0-15.0); Bilirubin Total 0.4 mg/dL (0.2-1.0); Globulin 3.9 g/dL (2.3-3.5); Potassium 3.7 mEq/L (3.5-5.1); Protein, Total 7.5 g/dL (6.4-8.2)
[2023-10-05 10:55] LABS: SARS-CoV-2 Antigen CONTROL BLUE LINE VIS/BG OK; SARS-CoV-2 Antigen Rapid Res Negative (Negative)
--- NOTE | 2023-10-05 12:28 | EDPHYS ---
Physician Documentation [facility] Name: Niecy Sibley Age: 23 yrs Sex: Female : 2000 Arrival Date: 10/05/2023 Time: 09:30 Bed 17 Private MD: ED Physician Gomez Mckeon HPI: 10/04 13:26 This 23 yrs old Female presents to ER via Ambulatory with complaints of dehydration, rt Vomiting. 13:26 Patient presents to the ED with nausea, vomiting for the past day. Denies any rt significant abdominal pain. Denies other acute complaints at this time, symptoms are moderate in severity, no other aggravating or alleviating factors.. Historical: - Allergies: :55 No Known Allergies; hb - Home Meds: : None [Active]; hb - PMHx: : None; hb - PSHx: :55 None; hb - Immunization history:: Adult Immunizations up to date. - Infectious Disease History:: Denies. - Social history:: Smoking status: Patient denies any tobacco usage or history of. - Family history:: not pertinent. ROS: 13:26 Constitutional: Negative for fever, chills, and weight loss, Cardiovascular: Negative rt for chest pain, palpitations, and edema, Respiratory: Negative for shortness of breath, cough, wheezing, and pleuritic chest pain, MS/Extremity: Negative for injury and deformity, Skin: Negative for injury, rash, and discoloration, Neuro: Negative for headache, weakness, numbness, tingling, and seizure, 13:26 Abdomen/GI: Positive for nausea, vomiting, Exam: 13:26 Constitutional: This is a well developed, well nourished patient who is awake, alert, rt and in no acute distress. Head/Face: Normocephalic, atraumatic. Chest/axilla: Normal chest wall appearance and motion. Nontender with no deformity. No lesions are appreciated. Cardiovascular: Regular rate and rhythm with a normal S1 and S2. No gallops, murmurs, or rubs. Normal PMI, no JVD. No pulse deficits. Respiratory: Lungs have equal breath sounds bilaterally, clear to auscultation and percussion. No rales, rhonchi or wheezes noted. No increased work of breathing, no retractions or nasal flaring. Abdomen/GI: Soft, non-tender, with normal bowel sounds. No distension or tympany. No guarding or rebound. No evidence of tenderness throughout. Skin: Warm, dry with normal turgor. Normal color with no rashes, no lesions, and no evidence of cellulitis. MS/ Extremity: Pulses equal, no cyanosis. Neurovascular intact. Full, normal range of motion. Neuro: Awake and alert, GCS 15, oriented to person, place, time, and situation. Cranial nerves II-XII grossly intact. Motor strength 5/5 in all extremities. Sensory grossly intact. Cerebellar exam normal. Normal gait. Vital Signs: 09:53 BP 117 / 87; Pulse 82; Resp 16; Temp 97.2(TE); Pulse Ox 100% on R/A; Weight 68.04 kg; hb Height 5 ft. 0 in. ; Pain 5/10; 11:32 BP 108 / 56; Pulse 72; Resp 16; Pulse Ox 100% ; Pain 5/10; nj1 13:03 BP 102 / 82; Pulse 81; Resp 16; Pulse Ox 100% ; nj1 09:53 Body Mass Index 29.29 (68.04 kg, 152.4 cm) hb 09:53 Pain Scale: Adult hb 11:32 Pain Scale: Adult nj1 MDM: 09:46 Patient medically screened. rt 13:26 Differential diagnosis: Gastroenteritis, UTI, electrolyte disturbance, pancreatitis. rt Data reviewed: vital signs, nurses notes, lab test result(s). I considered the following discharge prescriptions or medication management in the emergency department Medications were administered in the Emergency Department. See MAR. Test considered but Not performed: CT: Benign abdominal examination, low suspicion for surgical pathology such as appendicitis, cholecystitis, CT scan is not indicated. Counseling: I had a detailed discussion with the patient and/or guardian regarding the historical points, exam findings, and any diagnostic results supporting the discharge/admit diagnosis, lab results, the need for outpatient follow up, to return to the emergency department if symptoms worsen or persist or if there are any questions or concerns that arise at home. Response to treatment: the patient's symptoms have markedly improved after treatment. 10/04 09:58 Order name: CBC with Diff; Complete Time: 12:20 rt 10/04 09:58 Order name: CMP; Complete Time: 12:20 rt 10/04 09:58 Order name: Lipase; Complete Time: 12:20 rt 10/04 09:58 Order name: Test, Urine; Complete Time: 12:20 rt 10/04 09:58 Order name: Urinalysis w/ reflexes; Complete Time: 12:20 rt 10/04 10:22 Order name: Influenza Screen (a \T\ B); Complete Time: 12:20 rt 10/04 10:22 Order name: SARS RAPID; Complete Time: 12:20 rt 10/04 10:29 Order name: Urine Culture [facility] 10/04 09:58 Order name: IV Saline Lock; Complete Time: 10:26 rt 10/04 09:58 Order name: Labs collected and sent; Complete Time: 10:26 rt Administered Medications: 10:32 Drug: NS 0.9% IV 2000 ml IV at 1 bolus Per protocol; 2000 mL bolus Route: IV; Rate: 1 nj1 bolus; Site: left antecubital; 13:05 Follow up: Response: No adverse reaction; IV Status: Completed infusion; IV Intake: nj1 2000ml 10:32 Drug: Ondansetron IVP 4 mg IVP once; over 2 minutes Route: IVP; Site: left antecubital; nj1 11:32 Follow up: Response: No adverse reaction; Nausea is decreased nj1 Disposition Summary: 10/05/23 12:28 Discharge Ordered Notes: Location: Home rt Problem: new rt Symptoms: have improved rt Condition: Stable rt Diagnosis - Nausea with vomiting, unspecified rt - UTI/ Urinary tract infection, site not specified rt Followup: rt - With: Private Physician - When: 2 - 3 days - Reason: Discharge Instructions: - Discharge Summary Sheet rt - Nausea and Vomiting, Adult rt - Urinary Tract Infection, Adult rt Forms: - Medication Reconciliation Form rt - Antibiotic Education rt - Prescription Opioid Use rt - Patient Portal Instructions rt - Leadership Thank You Letter rt Prescriptions: - Zofran 4 mg Oral Tablet - take 1 tablet ORAL route every 12 hours As needed; 20 tablet; Refills: 0, rt Product Selection Permitted - cefpodoxime 200 mg Oral tablet - take 1 tablet ORAL route every 12 hours with food; 14 tablet; Refills: 0, rt Product Selection Permitted Signatures: [facility] Velma Polanco RN RN Gomez Mckeon MD MD rt Flory Valencia RN RN nj1 Corrections: (The following items were deleted from the chart) 09:55 09:55 PMHx: Unable to Obtain; hb hb
--- NOTE | 2023-10-05 12:28 | ER ---
Nurse's Notes [facility] Name: Niecy Sibley Age: 23 yrs Sex: Female : 2000 Arrival Date: 10/05/2023 Time: 09:30 Bed 17 Private MD: Diagnosis: Nausea with vomiting, unspecified;UTI/ Urinary tract infection, site not specified Presentation: 10/04 09:53 Chief complaint: N/V/D and upper abdominal pain x 3 days. Coronavirus screen: At this hb time, the client does not indicate any symptoms associated with coronavirus-19. Ebola Screen: No symptoms or risks identified at this time. Initial Sepsis Screen: Does the patient meet any 2 criteria? No. Patient's initial sepsis screen is negative. Does the patient have a suspected source of infection? No. Patient's initial sepsis screen is negative. Risk Assessment: Do you want to hurt yourself or someone else? Patient reports no desire to harm self or others. Onset of symptoms was October 02, 2023. 09:53 Method Of Arrival: Ambulatory hb 09:53 Acuity: NORA 3 hb Triage Assessment: 09:55 General: Appears in no apparent distress. Behavior is calm, cooperative. Pain: Pain hb currently is 5 out of 10 on a pain scale. Neuro: Level of Consciousness is awake, alert, obeys commands, Oriented to person, place, time, situation. Cardiovascular: Patient's skin is warm and dry. Respiratory: Respiratory effort is even, unlabored, Respiratory pattern is regular, symmetrical. GI: Reports upper abdominal pain, diarrhea, nausea, vomiting. Historical: - Allergies: 09:55 No Known Allergies; hb - Home Meds: 09:55 None [Active]; hb - PMHx: :55 None; hb - PSHx: 09:55 None; hb - Immunization history:: Adult Immunizations up to date. - Infectious Disease History:: Denies. - Social history:: Smoking status: Patient denies any tobacco usage or history of. - Family history:: not pertinent. Screenin:30 [facility] ED Fall Risk Assessment (Adult) History of falling in the last 3 months, nj1 including since admission No falls in past 3 months (0 pts) Confusion or Disorientation No (0 pts) Intoxicated or Sedated No (0 pts) Impaired Gait No (0 pts) Mobility Assist Device Used No (0 pt) Altered Elimination No (0 pt) Score/Fall Risk Level 0 - 2 = Low Risk Oriented to surroundings, Maintained a safe environment, Hourly rounding (assess needs \T\ fall precautionary measures) done. 10:30 Abuse screen: Denies threats or abuse. Denies injuries from another. Nutritional nj1 screening: No deficits noted. Tuberculosis screening: No symptoms or risk factors identified. Assessment: 10:32 General: Appears in no apparent distress. comfortable, Behavior is calm, cooperative, nj1 appropriate for age. Neuro: Level of Consciousness is awake, alert, obeys commands, Oriented to person, place, time, situation. Cardiovascular: Patient's skin is warm and dry. GI: Reports diarrhea, nausea, vomiting. 10:33 Pain: Complains of pain in abdomen Pain currently is 5 out of 10 on a pain scale. nj1 11:31 Reassessment: Patient appears in no apparent distress at this time. Patient and/or nj1 family updated on plan of care and expected duration. Pain level reassessed. Patient is alert, oriented x 3, equal unlabored respirations, skin warm/dry/pink. Patient states feeling better. GI: Patient currently denies nausea. 13:04 Reassessment: Patient appears in no apparent distress at this time. Patient is alert, nj1 oriented x 3, equal unlabored respirations, skin warm/dry/pink. Patient states feeling better. Patient states symptoms have improved. Vital Signs: 09:53 BP 117 / 87; Pulse 82; Resp 16; Temp 97.2(TE); Pulse Ox 100% on R/A; Weight 68.04 kg; hb Height 5 ft. 0 in. ; Pain 5/10; 11:32 BP 108 / 56; Pulse 72; Resp 16; Pulse Ox 100% ; Pain 5/10; nj1 13:03 BP 102 / 82; Pulse 81; Resp 16; Pulse Ox 100% ; nj1 09:53 Body Mass Index 29.29 (68.04 kg, 152.4 cm) hb 09:53 Pain Scale: Adult hb 11:32 Pain Scale: Adult nj1 ED Course: 09:34 Patient arrived in ED. im 09:35 Gomez Mckeon MD is Attending Physician. rt 09:44 Rand Bowman RN is Primary Nurse. kc6 09:55 Triage completed. hb 09:56 Arm band placed on. hb 10:04 Flory Valencia, RN is Primary Nurse. nj1 10:10 Patient has correct armband on for positive identification. Bed in low position. Call aw1 light in reach. Side rails up X 1. Door closed. Lights dimmed. Warm blanket given. Assisted to bathroom. 10:10 Urine collected: clean catch specimen, clear. aw1 10:11 Test, Urine Sent. aw1 10:11 Urinalysis w/ reflexes Sent. aw1 10:26 Initial lab(s) drawn, by me, sent to lab. Inserted saline lock: 22 gauge in left aw1 antecubital area, using aseptic technique. 10:26 CBC with Diff Sent. aw1 10: CMP Sent. aw1 10: Lipase Sent. aw1 10:30 Provided Education on: call light, fall precautions. nj1 13:06 No provider procedures requiring assistance completed. IV discontinued, intact, nj1 bleeding controlled, Pressure dressing applied. Administered Medications: 10:32 Drug: NS 0.9% IV 2000 ml IV at 1 bolus Per protocol; 2000 mL bolus Route: IV; Rate: 1 nj1 bolus; Site: left antecubital; 13:05 Follow up: Response: No adverse reaction; IV Status: Completed infusion; IV Intake: nj1 2000ml 10:32 Drug: Ondansetron IVP 4 mg IVP once; over 2 minutes Route: IVP; Site: left antecubital; nj1 11:32 Follow up: Response: No adverse reaction; Nausea is decreased nj1 Medication: 13:07 VIS not applicable for this client. nj1 Intake: 13:05 IV: 2000ml; Total: 2000ml. nj1 Outcome: 12:28 Discharge ordered by . rt 13:07 Discharged to home ambulatory, nj1 13:07 Condition: stable 13:07 Discharge instructions given to patient, Instructed on discharge instructions, follow up and referral plans. medication usage, Demonstrated understanding of instructions, follow-up care, medications, Prescriptions given X 2, 13:09 Patient left the ED. nj1 Signatures: Velma Polanco RN RN Rand Bowman RN RN kc6 Gomez Mckeon MD MD rt Flory Valencia, RN RN nj1 Karon Robles Alyssa aw1 Corrections: (The following items were deleted from the chart) 09:55 09:55 PMHx: Unable to Obtain; hb hb
[2023-10-05 13:13] VITALS: TEMP 97.2; O2SAT 100
[2023-10-05 13:30] VITALS: BP 102/82
== END 2023-10-05 13:09 | disposition home or self-care (01) ==
LOC: ER 09:30
DX: N39.0 Urinary tract infection, site not specified (principal); R11.2 Nausea with vomiting, unspecified
CPT/HCPCS: 96361; 87088; 85025; 81001; 87086; 36415; 81025; 83690; 80053; 87804 ×2; 96374; 99284; 87811; J2405; J7030

== ENCOUNTER 2024-07-24 21:34 | Emergency (ER) | payer OTHER ==
--- OUTSIDE RECORDS SUMMARY | 2024-07-24 21:37 | XMS REPORT | Continuity of Care Document ---
Author Name Unknown Address [address] [facility] [address] [place] [address] Organization [facility] [place] Address [address] [facility] 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 Role Phone Huerta Vesna CHARLES Primary Care Physician TRINY DAMON Attending Clinician Unavailable TRINY DAMON Attending Clinician Unavailable DOMINIQUE TURK Attending Clinician Unavailable TIMBO MARTINEZ Attending Clinician TIMBO Marley Attending Clinician Triny Carrera MD Attending Clinician [phone] BAN JOHNSON Attending Clinician Unavailable BAN JOHNSON Attending Clinician Unavailable Hellen Thomas DO Attending Clinician [phone] Ban Johnson MD Attending Clinician [phone] Timbo Martinez MD Attending Clinician + [phone] Doctor Unassigned, [place] Attending Clinician U KWAKU Rodriguez Attending Clinician Unavailable KWAKU MOURA Attending Clinician Unavailable VENTURA BARRAZA Attending Clinician UnavailChi Miller Attending Clinician Unavailable ALMA SUTHERLAND Attending Clinician UnavailAlma Diggs DO Attending Clinician [phone] Doctor Unassigned, [place] Attending Clinician Stephany Arango Attending Clinician UnavailMirian Villegas Attending Clinician Unavailable Cortez Salomon Attending Clinician [phone] Sarahi Platt Attending Clinician Unavailable MAL REBOLLAR Attending Clinician UnavailHELLEN Warner Admitting Clinician Unavailable Chi Constantino Admitting Clinician Unavailable Cortez Salomon Unavailable [id number] Payers Payer Name Policy Type Policy Number Effective Date Expirati on Date Source [facility] [id number] 2020 00:00:00 [facility] [facility] [id number] 2024 00:00:00 Problems Condition Name Condition Details Condition Category Status Onset Date Resolution Date Last Treatment Date Treating Clinician Comments Source Sasha of vagina Condition Active 9-16 00:00: 00 2020-01-05 16:24:47 Cortez Salomon [facility] Std exposure Condition Active 9-16 00:00: 00 2020-01-05 16:24:47 Cortez Salomon [facility] Dysuria Condition Active 9-16 00:00: 00 2020-01-05 16:24:47 Cortez Salomon [facility] Depo Provera contracept john, initial prescripti on Condition Active 9-16 00:00: 00 2020-01-05 16:24:47 Cortez Salomon [facility] Overweight Condition Active 9-16 00:00: 00 2020-01-05 16:24:47 Cortez Salomon [facility] 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 Repeat postpartu m [facility] Supervisio n of other normal Supervisio n of other normal Disease Resolve d 8- 00:00: 00 2023-08-22 00:00:00 2023-08-22 14:57:46 [facility] 13 weeks gestation of 13 weeks gestation of Disease Resolve d 8 00:00: 00 2023-08-22 00:00:00 2023-08-22 14:57:47 [facility] Allergies, Adverse Reactions, Alerts Allergy Name Allergy Type Status Severity Reaction(s) Onset Date Inactive Date Treating Clinician Comments Source No Known Allergie s DA Active U 2020-04 00:00: 00 [facility] [facility] NO KNOWN ALLERGIE S Drug Class Active [facility] Family History Family Member Diagnosis Comments Start Date Stop Date Sourc e Maternal grandfather [facility] Maternal grandmother [facility] Paternal grandfather [facility] Paternal grandmother [facility] Social History Social Habit Start Date Stop Date Quantity Comments Source ASSERTION 2020-09-21 00:00:00 [facility] to SARS-CoV-2 (event) Not sure [facility] Alcoholic beverage intake 2023-12-14 00:00:00 2023-12-14 00:00:00 Lifetime non-drinker (finding) [facility] History of Social function 2023-08-22 00:00:00 2023-08-22 00:00:00 [facility] Tobacco use and exposure 2020-12-09 00:00:00 2020-12-09 00:00:00 Smokeless tobacco non-user [facility] Alcohol intake 2020-12-09 00:00:00 2020-12-09 00:00:00 Lifetime non-drinker (finding) [facility] time of call 2020-03-01 11:51:55 2020-03-01 11:51:55 03/01/2020 11:52 AM [facility] condom use 2019-12-31 11:30:08 2019-12-31 11:30:08 Sometimes [facility] Ever had sexual intercourse? 2019-12-31 11:30:08 2019-12-31 11:30:08 Yes [facility] drug use, illicit 2019-12-31 11:30:08 2019-12-31 11:30:08 Never [facility] alcohol use 2019-12-31 11:30:08 2019-12-31 11:30:08 Currently [facility] is there any chance that you could be ? 2019-12-31 11:30:08 2019-12-31 11:30:08 No [facility] if the patient is using/has used a vaping item, Current, Former, Never Used, Not asked 2019-12-31 11:30:08 2019-12-31 11:30:08 No [facility] Sex assigned at 2000 00:00:00 2000 00:00:00 [facility] Smoking Status Start Date Stop Date Source Never smoked tobacco [facility] Medications Ordered Medication Name Filled Medication Name Start Date Stop Date Current Medication? Ordering Clinician Indication Dosage Frequency Signature (SIG) Comments Components Source cefTRIAXone (ROCEPHIN) 1,000 mg in water for injection, sterile 10 mL IV Push 07-15 23:30: 00 07-15 22:35 :00 No 1000mg 1,000 mg, Intravenou s, ONCE, 1 dose, On Sun07/15/24 at 1830, 10 mL, Reason for Anti-Infec tive: Empiric Therapy for Suspected Infection, Empiric Therapy Site: Urine, Duration of therapy: Once (ED) [facility] acetaminoph en (TYLENOL) tablet 1,000 mg 07-15 21:00: 00 07-15 20:53 :00 No 1000mg 1,000 mg, Oral, ONCE, 1 dose, On Sun07/15/24 at 1600, Routine [facility] NaCl 0.9% (NS) bolus infusion 1,000 mL 07-15 20:15: 00 07-16 00:00 :00 No 1000mL at 999 mL/hr, 1,000 mL, IV Infusion, ONCE, 1 dose, On Sun07/15/24 at 1515, STAT [facility] Nitrofurant oin&Nit. Macrocryst (MACROBID) 100 mg capsule 07-15 00:00: 00 Yes [id number] 100mg Take 1 capsule by mouth in the morning and 1 capsule in the evening. [facility] doxycycline monohydrate 100 mg capsule 5-08 00:00: 00 08-29 04:59 :00 No [id number] 100mg Take 1 capsule by mouth in the morning and 1 capsule in the evening. Do all this for 7 days. [facility] MELOXICAM 10-20 00:00: 00 Yes Sreedhar Isaac TAKE 1 TABLET NEEDED FOR MUSCLE SPASMS ORALLY AT BEDTIME 30 DAYS 10-20 00:00: 00 Yes Sreedhar Isaac IBUPROFEN 4-14 00:00: 00 Yes Sreedhar Isaac ONDANSETRON 14 00:00: 00 Yes Sreedhar Isaac TAKE 1 CAPSULE EVERY MORNING. -08 00:00: 00 08-13 00:00 :00 No 10 Sreedhar Isaac TAKE 1 TABLET TWICE DAILY NEEDED. 08 00:00: 00 08-13 00:00 :00 No 10 Sreedhar Isaac TAKE 1 CAPSULE BY MOUTH EVERY 8 HOURS FOR 10 DAYS 8-14 00:00: 00 Yes Sreedhar Isaac Dose Unknown 6-17 00:00: 00 Yes Sreedhar Isaac &lt 6-17 00:00: 00 Yes Sreedhar Isaac Dose Unknown 5-29 00:00: 00 Yes Sreedhar Isaac Lamictal 25 mg tablet 5-15 00:00: 00 Yes mg Sreedhar Isaac LAMOTRIGINE 25 MG TABS 5-15 00:00: 00 Yes Sreedhar Isaac TEOFILO 0.35 MG TABS 4-25 00:00: 00 Yes Sreedhar Isaac PARAGARD INTRAUTERIN E COPPER CONTRA CEPTIVE T380A IUD 3-17 00:00: 00 Yes Sreedhar Isaac IBUPROFEN 800 MG TABS 0 2-17 00:00: 00 Yes Sreedhar Isaac pramoxine (PROCTOFOAM ) 1 % foam 2020-04 1-13 00:00: 00 Yes [id number] Insert into rectum every 2 (two) hours as needed for Rectal itching/pa in. [facility] vit calc,iron,f olic ( VITAMIN ORAL) 12-09 09:25: 53 Yes Take by mouth. [facility] (NYSTATIN) [id number] UNIT/GM CREA 12-30 00:00: 00 Yes Cortez Salomon apply to labia Twice a Day x 7 days [facility] DIFLUCAN (FLUCONAZOL E) 150 MG TABS 12-30 00:00: 00 Yes Cortez Salomon 1 tab By Mouth x 1 for vaginal yeast [facility] PYRIDIUM (PHENAZOPYR IDINE HCL) 200 MG TABS 12-30 00:00: 00 Yes Cortez Salomon 1{Table t} 3xD 1 tab By Mouth Three Times a Day x 2 days [facility] KEFLEX (CEPHALEXIN ) 500 MG CAPS 12-30 00:00: 00 Yes Cortez Salomon 1 tab By Mouth Three Times a Day x 5 days [facility] DEPO-ACCIDENT INVESTIGATOR A (MEDROXYPRO GESTERONE ACETATE) 150 MG/ML SUSP 12-30 00:00: 00 Yes 150mg every 3 months (13 weeks) [facility] Immunizations Ordered Immunization Name Filled Immunization Name Date Status Comments Source HPV9 2023-12-14 00:00:00 Completed HPV9 2023-08-22 00:00:00 Completed [facility] HPV9 Unknown Completed [facility] HPV9 Unknown Completed [facility] HPV9 Unknown Completed [facility] Vital Signs Vital Name Observation Time Observation Value Comments S chandra Heart rate 2024-07-16 00:30:00 88 /min [facility] Respiratory rate 2024-07-16 00:30:00 18 /min [facility] Oxygen saturation in Arterial blood by Pulse oximetry 2024-07-16 00:30:00 100 /min [facility] Systolic blood pressure 2024-07-16 00:00:00 110 mm[Hg] [facility] Diastolic blood pressure 2024-07-16 00:00:00 73 mm[Hg] [facility] Body temperature 2024-07-15 19:59:00 36.89 Analilia [facility] Body height 2024-07-15 19:59:00 152.4 cm [facility] Body weight 2024-07-15 19:59:00 72.576 kg [facility] BMI 2024-07-15 19:59:00 31.25 kg/m2 [facility] Systolic blood pressure 2023-12-14 13:18:00 104 mm[Hg] [facility] Diastolic blood pressure 2023-12-14 13:18:00 66 mm[Hg] [facility] Heart rate 2023-12-14 13:18:00 79 /min [facility] Body temperature 2023-12-14 13:18:00 36.33 Analilia [facility] Respiratory rate 2023-12-14 13:18:00 18 /min [facility] Body weight 2023-12-14 13:18:00 71.487 kg [facility] BMI 2023-12-14 13:18:00 27.05 kg/m2 [facility] Systolic blood pressure 2023-08-22 18:41:00 126 mm[Hg] [facility] Diastolic blood pressure 2023-08-22 18:41:00 76 mm[Hg] [facility] Heart rate 2023-08-22 18:41:00 82 /min [facility] Body temperature 2023-08-22 18:41:00 36.67 Analilia [facility] Respiratory rate 2023-08-22 18:41:00 18 /min [facility] Body height 2023-08-22 18:41:00 162.6 cm [facility] Body weight 2023-08-22 18:41:00 68.493 kg [facility] BMI 2023-08-22 18:41:00 25.92 kg/m2 [facility] Systolic blood pressure 2021-02-27 00:28:00 154 mm[Hg] [facility] Diastolic blood pressure 2021-02-27 00:28:00 93 mm[Hg] [facility] Heart rate 2021-02-27 00:28:00 101 /min [facility] Body temperature 2021-02-27 00:28:00 36.56 Analilia [facility] Respiratory rate 2021-02-27 00:28:00 18 /min [facility] Body weight 2021-02-27 00:28:00 68.04 kg [facility] BMI 2021-02-27 00:28:00 29.29 kg/m2 [facility] Oxygen saturation in Arterial blood by Pulse oximetry 2021-02-27 00:28:00 100 /min [facility] Systolic blood pressure 2020-12-27 05:17:55 104 mm[Hg] [facility] Diastolic blood pressure 2020-12-27 05:17:55 66 mm[Hg] [facility] Heart rate 2020-12-27 05:17:55 106 /min [facility] Body temperature 2020-12-27 05:17:55 37 Analilia [facility] Respiratory rate 2020-12-27 05:17:55 18 /min [facility] Oxygen saturation in Arterial blood by Pulse oximetry 2020-12-27 05:17:55 98 /min [facility] Body height 2020-12-27 02:31:56 152.4 cm [facility] Body weight 2020-12-27 02:31:56 63.504 kg [facility] BMI 2020-12-27 02:31:56 27.34 kg/m2 [facility] BP Systolic 2024-07-22 15:47:00 113 mm[Hg] Step hen Anupam Isaac BP Diastolic 2024-07-22 15:47:00 72 mm[Hg] Salazar phen F Poncho Weight Measured 2024-07-22 15:47:00 155.40 pounds Sreedhar Anupam Isaac Height Measured 2024-07-22 15:47:00 62.00 inches Sreedhar F Poncho Body Temperature 2024-07-22 15:47:00 98.50 degrees Sreedhar F Poncho Heart Rate 2024-07-22 15:47:00 82.00 /min Becky en F Poncho Respiratory Rate 2024-07-22 15:47:00 18.00 /min Sreedhar Anupam Poncho Systolic blood pressure 2023-12-14 13:18:00 104 mm[Hg] [facility] Diastolic blood pressure 2023-12-14 13:18:00 66 mm[Hg] [facility] Heart rate 2023-12-14 13:18:00 79 /min [facility] Body temperature 2023-12-14 13:18:00 36.33 Analilia [facility] Respiratory rate 2023-12-14 13:18:00 18 /min [facility] Body weight 2023-12-14 13:18:00 71.487 kg [facility] BMI 2023-12-14 13:18:00 27.05 kg/m2 [facility] Respiratory Rate 2023-10-05 07:52:00 18.00 /min Sreedhar Anupam Isaac BP Systolic 2023-10-05 07:52:00 120 mm[Hg] Step hen Anupam Isaac BP Diastolic 2023-10-05 07:52:00 62 mm[Hg] [place] Isaac Weight Measured 2023-10-05 07:52:00 154.00 pounds Sreedhar Isaac Height Measured 2023-10-05 07:52:00 62.00 inches Sreedhar Bo Poncho Body Temperature 2023-10-05 07:52:00 97.90 degrees Sreedhar Anupam Pocnho Heart Rate 2023-10-05 07:52:00 69.00 /min Becky Bo Poncho Body height 2023-08-22 18:41:00 162.6 cm [facility] Oxygen saturation in Arterial blood by Pulse oximetry 2021-02-27 00:28:00 100 /min [facility] blood pressure, diastolic 2019-12-31 11:30:08 72 mm[Hg] [facility] blood pressure, systolic 2019-12-31 11:30:08 105 mm[Hg] [facility] oxygen saturation, oximetry 2019-12-31 11:30:08 98 /min [facility] nitgoBramble pulse rate 2019-12-31 11:30:08 78 /[facility] 2019-12-31 11:30:08 oral [facility] temperature E&M 2019-12-31 11:30:08 98.2 [facility]degF[facility] 2019-12-31 11:30:08 139.13 [lb_av] [facility] weight in kilograms E&M 2019-12-31 11:30:08 63.24 kg [facility] height in centimeters E&M 2019-12-31 11:30:08 152.40 cm [facility] Body Temperature 2018-09-19 08:20:00 98.60 degrees Sreedhar Bo Poncho Heart Rate 2018-09-19 08:20:00 73.00 /min Becky en Anupam Poncho Respiratory Rate 2018-09-19 08:20:00 16.00 /min Sreedhar Bo Poncho BP Systolic 2018-09-19 08:20:00 108 mm[Hg] Step justen Bo Poncho BP Diastolic 2018-09-19 08:20:00 71 mm[Hg] Sal[place] Isaac Weight Measured 2018-09-19 08:20:00 129.60 pounds Sreedhar Isaac Height Measured 2018-09-19 08:20:00 61.50 inches Sreedhar Anupam Poncho Procedures Procedure Date / Time Performed Performing Clinician Source US FIRST TRIMESTER LESS THAN 14 WEEKS WITH TRANSVAGINAL 2024-07-15 23:28:08 Hellen Thomas [facility] POCT TEST 2024-07-15 20:48:00 Calvin Thomas [facility] COMP. METABOLIC PANEL ([id number]) 2024-07-15 20:21:00 Hellen Thomas [facility] TOTAL BETA HCG ASSAY 2024-07-15 20:21:00 Jeison Thomas [facility] CBC WITH DIFF 2024-07-15 20:21:00 Hellen Thomas [facility] URINALYSIS 2024-07-15 20:21:00 Hellen Thomas [facility] GARDASIL 9 (HPV 9V) VACCINE 2023-12-14 14:07:54 AdTriny menezes [facility] POCT TEST 2023-12-14 00:00:00 AdTriny menezes [facility] GARDASIL 9 (HPV 9V) VACCINE 2023-08-22 19:03:13 Dominique Turk [facility] HIGH RISK HPV-THIN PREP 2023-08-22 19:03:00 Dominique Turk [facility] PAP SMEAR-LIQUID BASED-CP 2023-08-22 19:03:00 Dominique Turk [facility] [id number] 2021-06-02 00:00:00 CITLALLI [facility] NOTICE OF PRIVACY PRACTICES 2021-02-27 00:02:02 Doctor Unassigned, [place] [facility] CONSENT/REFUSAL FOR DIAGNOSIS AND TREATMENT 2021-02-27 00:00:13 Doctor Unassigned, [place] [facility] CBC WITH DIFF 2020-12-27 03:54:00 Ban Johnson [facility] ABORH CONFIRMATION (LAB ONLY) 2020-12-27 03:50:00 Ban Johnson [facility] CT CERVICAL SPINE WO CONTRAST 2020-12-27 03:48:43 Ban Johnson [facility] CT THORACIC SPINE WO CONTRAST 2020-12-27 03:48:43 Ban Johnson [facility] HB ABO GROUPING 2020-12-27 03:15:00 [facility] 2020-12-27 03:12[facility]ID NOW RAPID TESTING) 2020-12-27 03:12:00 Ban Johnson [facility] LIPASE 2020-12-27 02:44:[address] [facility] [place] COMP. METABOLIC PANEL ([id number]) 2020-12-27 02:44:00 Ban Johnson [facility] PROTHROMBIN TIME / INR 2020-12-27 02:44:00 Rik Johnson [facility] ACTIVATED PARTIAL THRMPLAS RADHA 2020-12-27 02:44:00 Ban Johnson [facility] Encounters Start Date/Time End Date/Time Encounter Type Admission Type Attending Clinicians Care Facility Care Department Encounter ID Source 2021-02-14 22:07:35 Emergency [facility] [id number] [facility] 2024-07-22 15:34:04 2024-07-22 15:34:[address] [facility] [id number] Sreedhar Isaac 2024-07-22 00:00:00 2024-07-22 00:00:[address] [facility] [id number] Sreedhar Isaac 2024-07-18 13:30:00 2024-07-18 13:30:00 Outpatient R FRANCE-THIAGO S, TIMBO FRANCE-THIAGO S, TIMBO [facility] [id number] [facility] 2024-07-16 00:00:00 2024-07-16 09:31:56 Telephone Triny Damon [facility] 1.0.114 350.1.13.10 4.2.7.2.686 [id number] [facility] 2024-07-15 15:01:00 2024-07-15 20:03:00 Emergency BAN NAJERA DONNELL [facility] ERT [id number] [facility] 2024-07-15 15:01:00 2024-07-15 20:03:00 Emergency Hellen Thomas Donnell [facility] 1.0.114 350.1.13.10 4.2.7.2.686 [id number] [facility] 2024-07-08 00:00:00 2024-07-08 15:58:33 Telephone Chandra ty Timbo [facility] 1.0.114 350.1.13.10 4.2.7.2.686 [id number] [facility] 2024-03-26 00:00:00 2024-04-26 18:16:26 Patient Secure Msg Doctor Unassigned, [place] 1.840.1 [id number] [facility] 2024-01-21 11:00:00 2024-01-21 11:00:00 Outpatient R KWAKU MOURA VIEN [facility] [id number] [facility] 2023-12-20 00:00:00 2023-12-20 16:32:06 Telephone Nelson Triny [facility] [id number] 350.1.13.10 4.2.7.2.686 [id number] [facility] 2023-12-14 08:15:00 2023-12-14 11:03:31 Outpatient R VANHAILY TRINY NELSON [facility] [id number] [facility] 2023-12-14 08:15:00 2023-12-14 11:03:31 Office Visit Triny Damon [facility] [id number] 350.1.13.10 4.2.7.2.686 [id number] [facility] 2023-10-23 14:00:00 2023-10-23 14:00:00 Outpatient R DOMINIQUE TURK [facility] [id number] [facility] 2023-10-22 10:00:00 2023-10-22 10:00:00 Outpatient R [facility] [id number] [facility] 2023-10-05 07:56:53 2023-10-05 07:56:53 Outpatient SFA [facility] [id number] Sreedhar F Poncho 2023-10-05 00:00:00 2023-10-05 00:00:00 Outpatient Visit SFA [id number] Sreedhar Anupam Poncho 2023-09-11 13:45:00 2023-09-11 13:45:00 Outpatient R DOMINIQUE TURK [facility] [id number] [facility] 2023-08-22 13:30:00 2023-08-22 14:07:14 Outpatient R DOMINIQUE UTRK [facility] [id number] [facility] 2023-08-22 13:30:00 2023-08-22 14:07:14 [facility] 1.2.840.114 350.1.13.10 4.2.7.2.686 [id number] [facility] 2022-07-17 09:56:32 2022-07-17 09:56:32 Outpatient SFA SFA [id number] Sreedhar Isaac 2021-09-05 14:30:00 2021-09-05 14:30:00 Outpatient VENTURA BARRAZA [id number] Elyssa Marie 2021-06-01 22:58:00 2021-06-04 12:45:00 Inpatient EM Chi Constantino HCANW OBPP [id number] [facility] 2021-04-14 10:58:00 2021-04-14 13:06:00 Emergency EM Chi Constantino HAILEYNW LORRAINE [id number] [facility] 2021-02-26 18:21:00 2021-02-26 18:57:00 Emergency LAMA LOJA [facility] ERT [id number] [facility] 2021-02-26 18:21:00 2021-02-26 18:57:00 Emergency Alma Sutherland [facility] 1.2.840.114 350.1.13.10 4.2.7.2.686 [id number] [facility] 2021-01-28 09:00:00 2021-01-28 09:00:00 Outpatient P [facility] [id number] [facility] 2020-12-26 21:31:00 2020-12-27 01:31:00 Emergency Ban Johnson [facility] 1..840.114 350.1.13.10 4.2.7.2.686 [id number] [facility] 2020-12-17 00:00:00 2020-12-17 00:00:00 Orders Only Doctor Unassigned, [place] [facility] 1.2840.114 350.1.13.10 4.2.7.2.686 [id number] [facility] 2020-12-13 08:15:00 2020-12-13 08:15:00 Outpatient R [facility] [id number] [facility] 2020-12-09 08:32:35 2020-12-09 10:20:13 Initial Visit Triny Damon [facility] 1..840.114 350.1.13.10 4.2.7.2.686 [id number] [facility] 2020-12-09 09:30:00 2020-12-09 09:30:00 Outpatient R TRINY DAMON [facility] [id number] [facility] 2020-12-09 00:00:00 2020-12-09 00:00:00 Orders Only Doctor Unassigned, [place] [facility] [id number] 350.1.13.10 4.2.7.2.686 [id number] [facility] 2020-03-01 00:00:00 2020-03-01 00:00:00 Office Visit Stephany Dee [facility] Encounter/ [id number] [facility] 2020-03-01 00:00:00 2020-03-01 00:00:00 Office Visit Stephany Dee Leslie [facility] Encounter/ [id number] [facility] 2019-12-31 00:00:00 2019-12-31 00:00:00 Office Visit Cortez Salomon [facility] Encounter/ [id number] [facility] 2019-12-31 00:00:00 2019-12-31 00:00:00 Office Visit Cortez Salomon [facility] Encounter/ [id number] [facility] 2019-12-31 00:00:00 2019-12-31 00:00:00 Office Visit Cortez Salomon [facility] Encounter/ [id number] [facility] 2019-12-31 00:00:00 2019-12-31 00:00:00 Office Visit Cortez Salomon Guadalupe [facility] Encounter/ [id number] [facility] [facility] 2019-06-25 19:18:00 2019-06-26 00:21:00 Emergency E MAL RE[facility]LL[facility] 2019-05-07 22:18:00 2019-05-07 22:18:00 Emergency E [facility] [address] Andrea braxton Results Test Description Test Time Test Comments Results Result Comments Source US first trimester less than 14 weeks with transvaginal 2024-07-0 2 00:52:45 EXAM: US FIRST TRIMESTER LESS THAN 14 WEEKS WITH TRANSVAGINAL HISTORY: 24 years-old Female; Provided indication: confirmationr/o ectopic . History obtained from [facility]: "d". LMP = 05/17/2024. Beta-hC,111.10. mIU/mL. G/P: . TECHNIQUE: Survey transabdominal and transvaginal ultrasound imaging andcolor Doppler evaluation of the pelvis was performed. M-mode was used toevaluate the heart. Roof Truss Detailer images were obtained. COMPARISON: None FINDINGS: Uterus: The uterus measures 9.2 x 4.7 x 6.3 cm. No intrauterine identified at this time. Theendometrial thickness measures 1.5 cm and there is small volume fluidwithin endometrial cavity. Right Adnexa:Ovary: The right ovary measures 3.1 x 2.6 x 2.9 cm with a volume of 12.3ml. Hypoechoic lesion with central hyperechogenicity measuring 2 x 1.7 x2.1 cm on the right ovary which likely represents an involuted corpusluteum. Left Adnexa:Ovary: The left ovary measures 2.9 x 2.5 x 2.6 cm with a volume of 9.6 ml.The left ovary is unremarkable. Cul-de-sac: No free fluid is present. [facility] ([id number])2024-07-15 21:48:27* Test Item Value Reference Range Interpretation Comme nts NA (test code = 0420645906) 137 mmol/L 135-145 K (test code = 8119821738) 3.5 mmol/L 3.5-5.0 CL (test code = 9584290899) 103 mmol/L 98-108 CO2 TOTAL (test code = 3957956690) 22 mmol/L 23-31 L AGAP (test code = 0688971293) 12 2-16 BUN (test code = 9842806200) 7 mg/dL 7-23 GLUCOSE (test code = 3729626027) 105 mg/dL 70-110 CREATININE (test code = 2160-0) 0.58 mg/dL 0.50-1.04 TOTAL BILI (test code = 6685713619) 0.6 mg/dL 0.1-1.1 CALCIUM (test code = 0690862936) 9.4 mg/dL 8.6-10.6 T PROTEIN (test code = 9701915737) 8.4 g/dL 6.3-8.2 H ALBUMIN (test code = 6173411373) 4.7 g/dL 3.5-5.0 ALK PHOS (test code = 0994593060) 61 U/L 34-122 ALTv (test code = 1742-6) 14 U/L 5-35 AST(SGOT) (test code = 2306978332) 22 U/L 13-40 eGFR (test code = 70610-3) 128.2 mL/min/1.73m2 CKD-EPI eGFR (2020). Assuming creatinine has been stable day-to-day for at least three months, the eGFR indicates Category G1 (>= 90 mL/min/1.73 m2) Lab Interpretation (test code = 91961-3) [facility] [id number] 21:22:23* Test Item Value Reference Range Interpretation Comme nts WBC (test code = 6690-2) 10.60 4.30-11.10 RBC (test code = 789-8) 4.24 3.93-5.25 HGB (test code = 718-7) 12.4 g/dL 11.6-15.0 HCT (test code = 4544-3) 36.9 % 35.7-45.2 MCV (test code = 787-2) 87.0 fL 80.6-95.5 MCH (test code = 785-6) 29.2 pg 25.9-32.8 MCHC (test code = 786-4) 33.6 g/dL 31.6-35.1 RDW-SD (test code = 46355-5) 41.1 fL 39.0-49.9 RDW-CV (test code = 788-0) 13.3 % 12.0-15.5 PLT (test code = 777-3) 283 166-358 MPV (test code = 75270-3) 11.2 fL 9.5-12.9 NRBC/100 WBC (test code = 4109599660) 0.0 0.0-10.0 NRBC x10^3 (test code = 9047852668) See_Comment [Automated messa ge] The system which generated this result transmitted reference range: 10*3/?L. The reference range was not used to interpret this result as normal/abnormal. GRAN MAT (NEUT) % (test code = 770-8) 72.9 % IMM GRAN % (test code = 1853787962) 0.40 % LYMPH % (test code = 736-9) 19.3 % MONO % (test code = 5905-5) 6.2 % EOS % (test code = 713-8) 0.8 % BASO % (test code = 706-2) 0.4 % GRAN MAT x10^3(ANC) (test code = 3680368839) 7.73 10*3/uL 1.88-7.09 H IMM GRAN x10^3 (test code = 6488995361) 0.04 10*3/uL 0.00-0.06 LYMPH x10^3 (test code = 731-0) 2.05 10*3/uL 1.32-3.29 MONO x10^3 (test code = 742-7) 0.66 10*3/uL 0.33-0.92 EOS x10^3 (test code = 711-2) 0.08 10*3/uL 0.03-0.39 BASO x10^3 (test code = 704-7) 0.04 10*3/uL 0.01-0.07 Lab Interpretation (test code = 62815-5) Abnormal [facility] [id number] 20:48:00* Test Item Value Reference Range Interpretation Comme nts POCT PREG (test code = 1605) Positive On board controls acceptable with C Line (test code = 3574) Yes POCT PREG LOT # (test code = 3575) [id number] POCT PREG TEST DATE ( test code = 3576) 09/08/2025 Lab Interpretation (test cod e = 93064-9) Normal [facility] [id number] 13:16:00* Test Item Value Reference Range Interpretation Comme nts POCT PREG (test code = 1605) Negative On board controls acceptable with C Line (test code = 3574) No POCT PREG LOT # (test code = 3575) POCT PREG TEST DATE ( test code = 3576) [facility] W/AUTO [id number] 05:38:00* Test Item Value Reference Range Interpretation Comme [...] CONCENTRATION (test code = MCHC) 32.4 g/dL 30.0-34.0 N RED CELL DISTRIBUTION WIDTH (test code = RDW) 16.1 % 11.3-14.5 H PLATELET COUNT (test code = PLT) 143 x10 3/uL 130-408 N MEAN PLATELET VOLUME (test c ode = MPV) 12.1 fL 8.6-12.6 N NEUTROPHIL [...] 0.0 x10 3/uL 0.0-0.1 N RAPID PLASMA [id number] 07:13:00* Test Item Value Reference Range Interpretation Comme nts RAPID PLASMA REAGIN (test co de = RPR) NEGATIVE NEGATIVE AG HEPATITIS B [id number] 04:21:00* Test Item Value Reference Range Interpretation Comme nts AG HEPATITIS B SURFACE (test code = HBSAG) NEGATIVE NEGATIVE AB HIV 1 04:21:00* Test Item Value Reference Range Interpretation Comme nts AB HIV 1 2 (test code = YPV25AX) NEGATIVE NEGATIVE AB RUBELLA [id number] 03:00:00* Test Item Value Reference Range Interpretation [...] require testing by alternate methods CBC W/AUTO [id number] 02:02:00* Test Item Value Reference Range Interpretation [...] 3/uL 0.0-0.1 N COVID 19 Asymptomatic IH [id number] 23:53:00* Test Item Value Reference Range Interpretation [...] signs and symptoms consistent withCOVID-19.Specimen Source: Nasopharyngeal (MEDICAL 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 [id number] [facility] WITH [id number] 04:13:06* Test Item Value Reference Range Interpretation [...] g/dL 31.6-35.1 H RDW-SD (test code = 68062-3) 42.0 fL 39.0-49.9 RDW-CV (test code = 788-0) 13.6 % 12.0-15.5 PLT (test code = 777-3) See_Comment [Automated messa ge] The system which generated this result transmitted reference range: 166 - 358 10*3/?L. The reference range was not used to interpret this result as normal/abnormal. MPV (test code = 73390-9) 11.6 fL 9.5-12.9 NRBC/100 WBC (test code = 3601548570) See_Comment [Automated me ssage] The system which generated this result transmitted reference range: 0.0 - 10.0 /100 WBCs. The reference range was not used to interpret this result as normal/abnormal. NRBC x10^3 (test code = 6948818666) <0.01 See_Comment [Automated messa ge] The system which generated this result transmitted reference range: 10*3/?L. The reference range was not used to interpret this result as normal/abnormal. GRAN MAT (NEUT) % (test code = 770-8) 71.1 % IMM GRAN % (test code = 3594933728) 1.00 % LYMPH % (test code = 736-9) 20.2 % MONO % (test code = 5905-5) 6.7 % EOS % (test code = 713-8) 0.7 % BASO % (test code = 706-2) 0.3 % GRAN MAT x10^3(ANC) (test code = 7923017393) 7.16 10*3/uL 1.88-7.09 H IMM GRAN x10^3 (test code = 1240405391) 0.10 10*3/uL 0.00-0.06 H LYMPH x10^3 (test code = 731-0) 2.04 10*3/uL 1.32-3.29 MONO x10^3 (test code = 742-7) 0.68 10*3/uL 0.33-0.92 EOS x10^3 (test code = 711-2) 0.07 10*3/uL 0.03-0.39 BASO x10^3 (test code = 704-7) 0.03 10*3/uL 0.01-0.07 Lab Interpretation (test code = 91613-4) [facility]normal [facility] Clinic[facility]IV[facility] PARTIAL THRMPLAS [id number] 04:07:28* Test Item Value Reference Range Interpretation Comme nts APTT Patient (test code = 3173-2) See_Comment [Automated message] The system which generated this result transmitted reference range: 23 - 38 Seconds. The reference range was not used to interpret this result as normal/abnormal. JOSE GUADALUPE (test code = JOSE GUADALUPE) The [facility] patient population mean normal value for aPTT is 30 seconds. Lab Interpretation (test code = 86361-2) Normal [facility] ClinicPROTHROMBIN TIME / [id number] 04:04:25* Test Item Value Reference Range Interpretation Comme [facility] PROTIME PATIENT (test code = 5964-2) See_Comment [Automated LIFEMODELERa ge] The system which generated this result transmitted reference range: 12.0 - 14.7 Seconds. The reference range was not used to interpret this result as normal/abnormal. INR (test code = 6301-6) Normal INR <1.1; Warfarin Therapeutic range 2.0 to 3.0 or 2.5 to 3.5, depending upon the indications. Lab Interpretation (test code = 52028-9) Normal [facility] ClinicType and Screen - ONCE [id number] 04:02:45* Test Item Value Reference Range Interpretation Comme [facility] ABO & RH (test code = 20) O Negative Performed at [facility] Laboratory [facility] Blood [address] [place], [place] [address]Toll Free: [phone] No. [id number] IAT (test code = 1185) Negative Performed at [facility] Laboratory [facility] Blood [place] [address]Toll Free: [phone] No. [id number] [facility] ClinicCOMP. METABOLIC PANEL (24469)2020-12-27 03:49:44* Test Item Value Reference Range Interpretation Comme [facility] NA (test code = 0570940968) 137 mmol/L 135-145 K (test code = 1880409528) 3.7 mmol/L 3.5-5.0 CL (test code = 7501377591) 107 mmol/L 98-108 CO2 TOTAL (test code = 0579426810) 23 mmol/L 23-31 AGAP (test code = 2982712593) 2-16 BUN (test code = 8098140967) 9 mg/dL 7-23 GLUCOSE (test code = 6930169712) 92 mg/dL 70-110 CREATININE (test code = 2556272439) 0.46 mg/dL 0.50-1.04 L TOTAL BILI (test code = 6444664627) 0.4 mg/dL 0.1-1.1 CALCIUM (test code = 7686560967) 9.1 mg/dL 8.6-10.6 T PROTEIN (test code = 9866405285) 7.5 g/dL 6.3-8.2 ALBUMIN (test code = 2239494946) 3.9 g/dL 3.5-5.0 ALK PHOS (test code = 3024559293) 79 U/L 34-122 ALTv (test code = 1742-6) 26 U/L 5-35 AST(SGOT) (test code = 2596033796) 43 U/L 13-40 H eGFR (test code = 3660459540) mL/min/1.73m2 JOSE GUADALUPE (test code = JOSE [...] imaging tests). Lab Interpretation (test code = 91060-6) Abnormal [facility] ClinicLIPASE2021-09-13 03:49:44* Test Item Value Reference Range Interpretation Comme nts LIPASE (test code = 4534546750) 55 U/L 0-220 Lab Interpretation (test cod e = 51699-6) Normal [facility] Clinicchlamydia DNA [id number] 12:19:00* Test Item Value Reference Range Interpretation Comme nts chlamydia DNA probe (test co de = 85777-7) NOT DETECTED NOT DETECTED N [facility] [id number] 12:19:00* Test Item Value Reference Range Interpretation Comme nts urine culture (test code = 630-4) 1,000-9,000 CFU/ML of Group B Streptococcus iso... [facility] reagin antibody, [id number] 12:19:00* Test Item Value Reference Range Interpretation Comme nts rapid plasma reagin antibody , serum (test code = 5291-0) NON-REACTIVE NON-REACTIVE N [facility], Signal to [id number]-[id number] 12:19:00* Test Item Value Reference Range Interpretation Comme nts Hepatitis C Antibody, Signal to Cut-Off (test code = 940100) 0.02 <1.[address] [facility], [id number] 12:19:00* Test Item Value Reference Range Interpretation Comme nts hepatitis C antibody, serum (test code = 5199-5) NON-REACTIVE NON-REACTIVE N [facility] surface [id number] 12:19:00* Test Item Value Reference Range Interpretation Comme nts hepatitis B surface antigen (test code = 79) NON-REACTIVE NON-REACTIVE N [facility]HIV[facility]CM[facility] (Chemiluminescent Microparticle Immuno Assay) 2019-12-31 12:19:00* Test Item Value Reference Range Interpretation Comme nts HIV-CMIA (Chemiluminescent Microparticle Immuno Assay) (test code = 536591) NON-REACTIVE NON-REACTIVE [facility] CenterNeisseria gonorrhoeae DNA [id number] 12:19:00* Test Item Value Reference Range Interpretation Comme nts Neisseria gonorrhoeae DNA pr obe (test code = 49157-3) NOT DETECTED NOT DETECTED N [facility] Hospitalbeta HCG, urine, nnpwjjugwmxrdmpe8676-90-17 11:30:08* Test Item Value Reference Range Interpretation Comme nts beta HCG, urine, semiquantit ative (test code = 2106-3) negative [facility], date of [id number] 11:30:08* Test Item Value Reference Range Interpretation Comme nts HIV test, date of last (test code = 49225) 2018 [facility] Notes Date/Time Note Provider Source Sreedhar Mercedes [facility]2025-04-02 09:25:24 Name and verified, pt states she went to ER yesterday because she fainted at work and was not feeling good. Pt states per ER physician she was told she could be early in or possible ectopic . Pt denies any vaginal bleeding or pain. 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 Pt was given ER precautions and to see her physician by this week by Dr. Damon. Pt verbalized understanding. Nicole Menezes RN 07/16/2024 9:31 AM Nicole Menezes [facility] CarolinaPsotkt8737-94-89 20:02:38 Patient given discharge instructions, and verbalized no further concerns or questions. Skin p/w/d, rr equal and non labored. A&Ox4. Ambulated independently with a steady gait in stable condition. Chitra Chiu [facility] CarolinaTgstls1778-96-87 19:47:44 [facility] ED Transfer of Care Note. Off-going Physician: Time of Transfer of Care: 1899 Summary: Niecy Sibley is a 24 year old female presenting with chief complaint of Near syncope. Pending prior to disposition: Labs, Imaging, and Reevaluation Current interventions: Medications NaCl 0.9% (NS) bolus infusion 1,000 mL (1,000 mL IV Infusion New Bag 07/15/24 1547) acetaminophen (TYLENOL) tablet 1,000 mg (1,000 mg Oral Given 07/15/24 1553) cefTRIAXone (ROCEPHIN) 1,000 mg in water for injection, sterile 10 mL IV Push (1,000 mg Intravenous Given 07/15/24 1735) Results: Labs Reviewed CBC WITH DIFF - Abnormal; Notable for the following components: Result Value GRAN MAT x103(ANC) 7.73 (*) All other components within normal limits COMP. METABOLIC PANEL (58431) - Abnormal; Notable for the following components: CO2 TOTAL 22 (*) T PROTEIN 8.4 (*) All other components within normal limits URINALYSIS - Abnormal; Notable for the following components: APPEARANCE Slightly Cloudy (*) LEUK BRENDA 500/uL (*) WBC/HPF 22 (*) BACTERIA Few (*) MUCOUS Slight (*) All other components within normal limits POCT TEST - Normal TOTAL BETA HCG ASSAY Narrative: Gestational Age Range (mIU/mL) 1-10 Weeks 44-914408 11-15 Weeks 81250-258098 16-22 Weeks 7480-674370 23-40 Weeks 1531-541942 Biotin has been reported to cause a negative bias, interpret results relative to patient's use of biotin. URINE CULTURE US first trimester less than 14 weeks with transvaginal Preliminary Result No intrauterine identified at this time. of unknown location. Recommend continued follow up with beta hCG and ultrasound as needed prior. 2.1 cm hypoechoic lesion with central hyperechoic focus likely represents an involuted corpus luteum. Continued follow-up with the patient's routine obstetrics provider is recommended. Preliminary Report Dictated by Resident: Hannah Wasserman Procedures: Procedures Additional Notes: ED Course as of 07/15/241946 Tue Jul 15, 2024 1722 WBC/HPF(!): 22 [PS] 1722 LEUK BRENDA(!): 500/uL [PS] ED Course User Index [PS] Hellen Thomas DO Diagnosis/Impression as of 07/15/241946 Near syncope Urinary tract infection without hematuria, site unspecified Medical Decision Making Amount and/or Complexity of Data Reviewed Labs: ordered. Decision-making details documented in ED Course. Radiology: ordered. Risk OTC drugs. Prescription drug management. The patient is G5, P4 who presents for a near syncopal episode. She is . Beta quant today is 1100. Ultrasound does not demonstrate an IUP. The patient has had no significant events in the emergency department. Of note, she does have a UTI. She was given fluids and Rocephin here in the ED. I spoke with Dr. Damon at length in regards to the patient. The patient is safe to go home after discussion with Dr. Damon. The patient will be contacted tomorrow to move up her appointment. She was sent home with a course of nitrofurantoin. She was discharged to follow-up. She was given bed rest and pelvic rest instructions. He can return for any questions or concerns. Disposition: Discharged Home Social Determinants of Health: None ED Disposition ED Disposition Discharge Condition Stable Comment -- T [place] 618105-04-01 19:22:29 Patient updated on plan of care. Denies further needs at this time. Skin p/w/d, rr equal and non labored. A&Ox4. [place] 056095-04-01 19:01:00 Assumed care from Esperanza HUSSEIN. 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 Pt is , no care established yet. LMP 05/17/2024. . Denies vaginal bleeding or abd pain. Hx of iron deficiency anemia. Jenny Fulton [facility] CarolinaPovdjk1320-32-49 15:58:21 Noted, 7w3d Nicole Menezes RN 07/08/2024 3:58 PM Nicole Menezes [facility] CarolinaJqafym5649-30-36 14:45:08 New Ob, no prev ob care Lmp 06/14/24 France Carrasquillo 08/05/24 @ 2:30 [facility]el [facility]ersC[facility] CenterXulyma0798-87-53 16:31:55 See telephone encounter Nicole Menezes [facility] CarolinaJurbnv7164-47-30 15:03:47 Pt returned call to discuss results. States she is on a strict no cell phone policy. Says she gets off at 5pm. Requesting for results to be placed on voicemail if she does not answer the call or call after 5pm if possible. Florecita RivasCrystal Clinic Orthopedic CenterRkiega2509-61-99 08:15:00 Addended by: NIECY RIOJAS on: 12/14/2023 11:12 AM Modules accepted: Orders [facility] CenterHzowue7005-26-22 00:00:00 Sreedhar AnupamYair [facility]2022-02-19 09:19:00 [facility] [place] ([facility] Med Order Sheet REPORT #: [id number] REPORT STATUS: Signed DATE: 06/04/21 TIME: 918 PATIENT: NIECY SIBLEY UNIT #: [id number] ROOM #: N.0280 BED: 1 : 98 AGE: 20 SEX: F ATTEND: Chi Constantino MD ADM AUTHOR: Chi Constantino MD ATTENTION *EDITS and/or ADDENDA must be made in Patient Keeper for this note. * * Edits and ammendments created in [facility] are not visible * * in Patient Keeper or the legal medical record (HPF). * Discharge Medication Reconciliation Discharge Meds Rec Completed. No Reconciled Orders. The following Hospital Medications have not yet been reconciled: Acetaminophen Tab (Tylenol Tab) 1000MG PO Q4H PRN mild pain (scale 1-3) Benzocaine Topical Tennyson (Americaine Topical Tennyson) 1APPLIC Topical ASDIR PRN episiotomy discomfort Carboprost Inj (Hemabate Inj) 250MCG IM Q15M X 8 doses PRN hemorrage diphenhydrAMINE Cap (Benadryl Cap) 25MG PO Q6H PRN itching Docusate Sodium Cap (Colace Cap) 200MG PO DAILY PRN constipation (second line) HC/Pramoxine Cream 2.5% (Analpram-HC Cream 2.5%) 1APPLIC Topical ASDIR PRN perineal discomfort HYDROcod/APAP 5/325 Tab ([place] 5/325 Tab) 1TAB PO Q4H PRN moderate pain (score 4-6) HYDROcod/APAP 5/325 Tab ([place] 5/325 Tab) 2TAB PO Q4H PRN pain score 7-10 or cramping Ibuprofen Tab (Motrin Tab) 800MG PO Q8H PRN cramping Lanolin Ointmen (Lanolin Ointment) 1APPLIC Topical ASDIR PRN sore/cracked nipples Mag/Al/Simeth Oral Liquid (Maalox Max Oral Liquid) 30ML PO Q4H PRN dyspepsia Magnesium Hydroxide Oral Liq (Milk Of Magnesia Oral Liquid) 30ML PO DAILY PRN constipation (first line) Ariela/Mump/Rub Vaccine Inj (MMR II Vaccine Inj) 1VIAL SubQ ASDIR Methylergonovine Inj (Methergine Inj) 0.2MG IM Q4H PRN hemorrage Misoprostol Tab (CytoTEC Tab) 800MCG Rectal ASDIR X 1 doses PRN for hemorrhage x 1 dose Ondansetron Inj (Zofran Inj) 4MG IV Q8H PRN severe nausea and vomiting Oxytocin Inj (Pitocin Inj) 10UNITS IM ASDIR X 1 doses PRN for bleeding x 1 dose Vitamin Tab ( Vitamin Tab) 1TAB PO DAILY Simethicone Chew Tab (Mylanta Gas Chew Tab) 160MG PO PC HS PRN gas Sodium Chloride 0.9% (Nacl 0.9%) 10ML IV ASDIR TDaP Vaccine Inj (Adacel Vaccine Inj) 0.5ML IM ASDIR PRN if criteria met Witch Connie Medicated Pad (A.E.R Pads) 1MED.PAD Topical ASDIR PRN hemorrhoids Zolpidem Tab (Ambien Tab) 5MG PO BEDTIME PRN insomnia at 0919 ATTENTION *EDITS and/or ADDENDA must be made in Patient Keeper for this note. * * Edits and ammendments created in [employer] are not visible * * in Patient Keeper or the legal medical record (HPF). * [facility] #: [id number] END OF REPORTQYULY1405-55-28 09:17:00 [facility] ([facility]) OB Progress Note REPORT #: [id number] REPORT STATUS: Signed DATE: 06/04/21 TIME: 916 PATIENT: NIECY SIBLEY UNIT #: [id number] ROOM #: N.0280 BED: 1 : 98 AGE: 20 SEX: F ATTEND: Chi Constantino MD ADM AUTHOR: Chi Constantino MD ATTENTION *EDITS and/or ADDENDA must be made in Patient Keeper for this note. * * Edits and ammendments created in [employer] are not visible * * in Patient Keeper or the legal medical record ([facility]). * -- OBJECTIVE -- VITALS (06/03 09:17 - 06/04 09:17): Temperature F: 98.1 Temperature C: 37.0 (36.4 - 37.0) Pulse Rate 80 (80 - 97) Respiratory rate: 16 (16 - 18) BP: 127/85 (105/69 - 131/86) -- DATA -- VITALS Pulse Rate 06/04/21 09:02 06/04/21 07:26 80 06/03/21 20:59 06/03/21 20:58 06/03/21 20:06 89 06/03/21 15:57 92 06/03/21 12:29 97 06/03/21 11:26 97 06/03/21 08:21 88 06/03/21 07:33 88 SPO2 %: 06/04/21 09:02 06/04/21 07:26 100 06/03/21 20:59 06/03/21 20:58 06/03/21 20:06 96 06/03/21 15:57 99 06/03/21 12:29 99 06/03/21 11:26 99 06/03/21 08:21 98 06/03/21 07:33 98 Temperature C: 06/04/21 09:02 06/04/21 07:26 37.0 06/03/21 20:59 06/03/21 20:58 06/03/21 20:06 36.4 06/03/21 15:57 36.7 06/03/21 12:29 06/03/21 11:26 36.7 06/03/21 08:21 06/03/21 07:33 36.6 Temperature F: 06/04/21 09:02 06/04/21 07:26 06/03/21 20:59 06/03/21 20:58 06/03/21 20:06 06/03/21 15:57 06/03/21 12:29 98.1 06/03/21 11:26 06/03/21 08:21 97.9 06/03/21 07:33 Respiratory rate: 06/04/21 09:02 06/04/21 07:26 16 06/03/21 20:59 06/03/21 20:58 06/03/21 20:06 18 06/03/21 15:57 16 06/03/21 12:29 16 06/03/21 11:26 16 06/03/21 08:21 16 06/03/21 07:33 16 Respiratory source: 06/04/21 09:02 06/04/21 07:26 06/03/21 20:59 06/03/21 20:58 06/03/21 20:06 06/03/21 15:57 Observed 06/03/21 12:29 06/03/21 11:26 06/03/21 08:21 06/03/21 07:33 Blood pressure: 06/04/21 09:02 06/04/21 07:26 127 / 85 06/03/21 20:59 06/03/21 20:58 06/03/21 20:06 105 / 69 06/03/21 15:57 131 / 86 06/03/21 12:29 124 / 80 06/03/21 11:26 124 / 80 06/03/21 08:21 105 / 67 06/03/21 07:33 105 / 67 Height in: 06/04/21 09:02 06/04/21 07:26 06/03/21 20:59 06/03/21 20:58 06/03/21 20:06 06/03/21 15:57 06/03/21 12:29 06/03/21 11:26 06/03/21 08:21 06/03/21 07:33 Height ft: 06/04/21 09:02 06/04/21 07:26 06/03/21 20:59 06/03/21 20:58 06/03/21 20:06 06/03/21 15:57 06/03/21 12:29 06/03/21 11:26 06/03/21 08:21 06/03/21 07:33 Weight source: 06/04/21 09:02 06/04/21 07:26 06/03/21 20:59 06/03/21 20:58 06/03/21 20:06 06/03/21 15:57 06/03/21 12:29 06/03/21 11:26 06/03/21 08:21 06/03/21 07:33 MEWS score: 06/04/21 09:02 06/04/21 07:26 1 06/03/21 20:59 06/03/21 20:58 06/03/21 20:06 1 06/03/21 15:57 1 06/03/21 12:29 06/03/21 11:26 1 06/03/21 08:21 06/03/21 07:33 1 LOC: 06/04/21 09:02 06/04/21 07:26 Alert 06/03/21 20:59 06/03/21 20:58 06/03/21 20:06 Alert 06/03/21 15:57 Alert 06/03/21 12:29 06/03/21 11:26 Alert 02/18/22 08:21 06/03/21 07:33 Alert Mean arterial pressure: 06/04/21 09:02 06/04/21 07:26 99.1 06/03/21 20:59 06/03/21 20:58 06/03/21 20:06 80.7 06/03/21 15:57 100.8 06/03/21 12:29 06/03/21 11:26 94.6 06/03/21 08:21 06/03/21 07:33 79.6 Pain intensity: 06/04/21 09:02 7 06/04/21 07:26 06/03/21 20:59 5 06/03/21 20:58 3 06/03/21 20:06 06/03/21 15:57 06/03/21 12:29 6 06/03/21 11:26 06/03/21 08:21 06/03/21 07:33 Pain scale utilized: 06/04/21 09:02 Verbal numeric 06/04/21 07:26 06/03/21 20:59 Verbal numeric 06/03/21 20:58 Verbal numeric 06/03/21 20:06 06/03/21 15:57 06/03/21 12:29 Verbal numeric 06/03/21 11:26 06/03/21 08:21 06/03/21 07:33 BMI calculated: 06/04/21 09:02 06/04/21 07:26 06/03/21 20:59 06/03/21 20:58 06/03/21 20:06 06/03/21 15:57 06/03/21 12:29 06/03/21 11:26 06/03/21 08:21 06/03/21 07:33 Height source: 06/04/21 09:02 06/04/21 07:26 06/03/21 20:59 06/03/21 20:58 06/03/21 20:06 06/03/21 15:57 06/03/21 12:29 06/03/21 11:26 06/03/21 08:21 06/03/21 07:33 BSA calculated - sq m: 06/04/21 09:02 06/04/21 07:26 06/03/21 20:59 06/03/21 20:58 06/03/21 20:06 06/03/21 15:57 06/03/21 12:29 06/03/21 11:26 06/03/21 08:21 06/03/21 07:33 IBW calculated: 06/04/21 09:02 06/04/21 07:26 06/03/21 20:59 06/03/21 20:58 06/03/21 20:06 06/03/21 15:57 06/03/21 12:29 06/03/21 11:26 06/03/21 08:21 06/03/21 07:33 AdjBW calculated: 06/04/21 09:02 06/04/21 07:26 06/03/21 20:59 06/03/21 20:58 06/03/21 20:06 06/03/21 15:57 06/03/21 12:29 06/03/21 11:26 06/03/21 08:21 06/03/21 07:33 Numeric pain scale: 06/04/21 09:02 Severe pain-7 06/04/21 07:26 06/03/21 20:59 Moderate pain-5 06/03/21 20:58 Mild pain-3 06/03/21 20:06 06/03/21 15:57 06/03/21 12:29 Moderate pain-6 06/03/21 11:26 06/03/21 08:21 06/03/21 07:33 Weight in Kilograms 06/04/21 09:02 06/04/21 07:26 06/03/21 20:59 06/03/21 20:58 06/03/21 20:06 06/03/21 15:57 06/03/21 12:29 06/03/21 11:26 06/03/21 08:21 06/03/21 07:33 Height in Centimeters 06/04/21 09:02 06/04/21 07:26 06/03/21 20:59 06/03/21 20:58 06/03/21 20:06 06/03/21 15:57 06/03/21 12:29 06/03/21 11:26 06/03/21 08:21 06/03/21 07:33 COVID-19 point of entry screening status: 06/04/21 09:02 06/04/21 07:26 06/03/21 20:59 06/03/21 20:58 06/03/21 20:06 06/03/21 15:57 06/03/21 12:29 06/03/21 11:26 06/03/21 08:21 06/03/21 07:33 ED Arrival Time 06/04/21 09:02 06/04/21 07:26 06/03/21 20:59 06/03/21 20:58 06/03/21 20:06 06/03/21 15:57 06/03/21 12:29 06/03/21 11:26 06/03/21 08:21 06/03/21 07:33 ADDITIONAL COMMENTS: Vaginal Delivery Discharge Note Patient has no complain. Desires to go home. Vital signs stable. Afebrile. Lungs: CTA bilaterally CV: R/R/R Abd: Soft, ND, NT Fundus: Firm, NT [place]: Mild Ext: No C/C/E. No calf-tenderness. A/P: s/p PPD#2. 1. Discharge home. 2. F/U in 3 weeks in office. 3. Rx for Motrin 800mg PO Q8 prn 4. Pelvic rest for 6 weeks. Signed in PatientKeeper by Chi Constantino MD on 06/04/21 at 09:18 at 0918 ATTENTION *EDITS and/or ADDENDA must be made in Patient Keeper for this note. * * Edits and ammendments created in [facility] are not visible * * in Patient Keeper or the legal medical record (HPF). * [facility] #: [id number] END OF [id number] 12:57:00 [facility] ([facility]) OB Progress Note REPORT #: [id number] REPORT STATUS: Signed DATE: 06/03/21 TIME: 1257 PATIENT: NIECY SIBLEY UNIT #: [id number] [facility] AGE: 20 SEX: F ATTEND: Chi Constantino MD ADM AUTHOR: Chi Constantino MD ATTENTION *EDITS and/or ADDENDA must be made in Patient Keeper for this note. * * Edits and ammendments created in [employer] are not visible * * in Patient Keeper or the legal medical record (HPF). * -- OBJECTIVE -- VITALS (06/02 12:57 - 06/03 12:57): Temperature F: 97.9 (97.9 - 98.4) Temperature C: 36.7 (36.3 - 37.0) Pulse Rate 97 (81 - 125) Respiratory rate: 16 (16 - 18) BP: 124/80 (98/56 - 138/81) I/Os (06/02 07:00 - 06/03 07:00): Net 1,750 Intake 1,750 -- DATA -- LABS CBC W/AUTO DIFF (06/01/21 23:25) WHITE BLOOD CELL 11.4 RED BLOOD CELL 3.24 L HEMOGLOBIN 9.0L L HEMATOCRIT 27.4L L MEAN CELL VOLUME 85 MEAN CELL HGB 27.8 MEAN CELL HGB CONCENTRATION 32.8 RED CELL DISTRIBUTION WIDTH 16.2 H PLATELET COUNT 193 MEAN PLATELET VOLUME 12.0 NEUTROPHIL % 72.6 H IMMATURE GRANULOCYTE % 1.4 LYMPHOCYTE % 17.2 L MONOCYTE % 7.5 EOSINOPHIL % 0.9 BASOPHIL % 0.4 NUCLEATED RBC % 0.0 NEUTROPHIL # 8.3 H LYMPHOCYTE # 1.95 MONOCYTE # 0.9 H EOSINOPHIL # 0.1 BASOPHIL # 0.0 RPR (06/01/21 23:25) RAPID PLASMA REAGIN NEGATIVE URINALYSIS COMPLETE (04/14/21 11:15) UA COLOR Straw UA APPEARANCE Clear UA GLUCOSE DIPSTICK NEGATIVE UA BILIRUBIN DIPSTICK NEGATIVE UA KETONE DIPSTICK NEGATIVE UA SPECIFIC GRAVITY 1.006 UA BLOOD DIPSTICK 3+ UA PH DIPSTICK 8.0 UA PROTEIN DIPSTICK NEGATIVE UA UROBILINOGEN DIPSTICK NEGATIVE UA NITRITE DIPSTICK NEGATIVE UA ASCORBIC ACID DIPSTICK NEGATIVE UA LEUKOCYTE ESTERASE DIPSTICK NEGATIVE UA WBC 0-5 UA RBC TNTC H UA EPITHELIAL CELLS RARE UA BACTERIA None UA MUCUS 1+ COVID ASYMP AG (06/01/21 22:55) COVID 19 Asymptomatic IH AG Negative AB HIV 1 amp;2 (06/01/21 23:25) AB HIV 1 2 NEGATIVE RUBGAB (06/01/21 23:25) AB RUBELLA IGG POSITIVE A HBSAG (06/01/21 23:25) AG HEPATITIS B SURFACE NEGATIVE CBC W/AUTO DIFF (06/03/21 04:46) WHITE BLOOD CELL 12.3H H RED BLOOD CELL 2.91 L HEMOGLOBIN 8.0L L HEMATOCRIT 24.7L L MEAN CELL VOLUME 85 MEAN CELL HGB 27.5 MEAN CELL HGB CONCENTRATION 32.4 RED CELL DISTRIBUTION WIDTH 16.1 H PLATELET COUNT 143 MEAN PLATELET VOLUME 12.1 NEUTROPHIL % 76.2 H IMMATURE GRANULOCYTE % 1.0 LYMPHOCYTE % 14.2 L MONOCYTE % 7.4 EOSINOPHIL % 1.0 BASOPHIL % 0.2 NUCLEATED RBC % 0.0 NEUTROPHIL # 9.4 H LYMPHOCYTE # 1.75 MONOCYTE # 0.9 H EOSINOPHIL # 0.1 BASOPHIL # 0.0 ADDITIONAL COMMENTS: Vaginal Delivery Day 1 Patient has no complain. No F/C/N/V. No heavy bleeding. VSS. Afebrile. Lungs: CTA bilaterally CV: R/R/R Abd: Soft, ND, NT Fundus: Firm, NT [place]: Mild Ext: No C/C/E. No calf-tenderness. CBC Pending A/P: s/p PPD # 1 1. Continue routine post care. Signed in PatientKeeper by Chi Constantino MD on 06/03/21 at 12:58 at 1258 ATTENTION *EDITS and/or ADDENDA must be made in Patient Keeper for this note. * * Edits and ammendments created in [facility] are not visible * * in Patient Keeper or the legal medical record (HPF). * [facility] #: [id number] END OF [id number] 13:43:00 [facility] ([facility]) Med Order Sheet REPORT #: [id number] REPORT STATUS: Signed DATE: 06/02/21 TIME: 1343 PATIENT: NIECY SIBLEY UNIT #: [id number] ROOM #: N.1204 BED: 1 : 98 AGE: 20 SEX: F ATTEND: Chi Constantino MD ADM AUTHOR: Jmaes Nobles MD ATTENTION *EDITS and/or ADDENDA must be made in Patient Keeper for this note. * * Edits and ammendments created in [employer] are not visible * * in Patient Keeper or the legal medical record (HPF). * Discharge Medication Reconciliation DISCHARGE MEDICATION LIST Vitamin Tab ( Vitamin Tab) Dose: 1 TAB PO DAILY Ibuprofen Tab (Motrin Tab) Dose: 800 MG PO q8h PRN cramping, Disp: 30 tablet, Refills: 0 The following Hospital Medications have not yet been reconciled: Acetaminophen Tab (Tylenol Tab) 1000 MG PO q4h PRN mild pain (scale 1-3) (CAUTION: DO NOT EXCEED 4000MG ACETAMINOPHEN IN 24HRS) Acetaminophen Tab (Tylenol Tab) 1000MG PO PACU ONCE X 1 doses PRN mild pain 1-3 Benzocaine Topical Tennyson (Americaine Topical Tennyson) 1 APPLIC Topical asdir PRN episiotomy discomfort perineum (AT BEDSIDE) Butorphanol Inj (Stadol Inj) 1MG IV Q1H PRN moderate pain 4-6 Butorphanol Inj (Stadol Inj) 2MG IV Q2H PRN severe pain (score 7-10) Carboprost Inj (Hemabate Inj) 250 MCG IM q15m X 8 doses PRN hemorrage (MAXIMUM DOSE: 2MG (8 DOSES) STORE IN REFRIGERATOR) Carboprost Inj (Hemabate Inj) 250MCG IM PACU ONCE X 1 doses PRN excessive bleeding diphenhydrAMINE Cap (Benadryl Cap) 25 MG PO Q6H PRN itching diphenhydrAMINE Inj (Benadryl Inj) 12.5MG IV Q6H PRN mild itching Docusate Sodium Cap (Colace Cap) 200 MG PO daily PRN constipation (second line) (If MOM not effective. HOLD FOR LOOSE STOOLS) ePHEDrine Inj (ePHEDrine Inj) 10MG IV Q5M PRN sbp<90 (max: 50mg) fentaNYL/Ropiv 2mcg/0.2% Inj 200MCG Epidural ASDIR HC/Pramoxine Cream 2.5% (Analpram-HC Cream 2.5%) 1 APPLIC Topical asdir PRN perineal discomfort HYDROcod/APAP 5/325 Tab ([place] 5/325 Tab) 1 TAB PO q4h PRN moderate pain (score 4-6) (HYDROCODONE/APAP 5/325 CAUTION: DO NOT EXCEED 4000 MG DANIELITO...) HYDROcod/APAP 5/325 Tab ([place] 5/325 Tab) 1TAB PO PACU ONCE X 1 doses PRN moderate pain 4-6 HYDROcod/APAP 5/325 Tab ([place] 5/325 Tab) 2 TAB PO q4h PRN pain score 7-10 or cramping (HYDROCODONE/APAP 5/325 CAUTION: DO NOT EXCEED 4000MG ACET...) HYDROcod/APAP 5/325 Tab ([place] 5/325 Tab) 2TAB PO PACU ONCE X 1 doses PRN severe pain 7-10 Ibuprofen Tab (Motrin Tab) 800MG PO PACU ONCE X 1 doses PRN cramping Lactated Ringers (LR) 1000ML 125 MLS/HR IV ASDIR Lanolin Ointmen (Lanolin Ointment) 1 APPLIC Topical asdir PRN sore/cracked nipples nipples (TO BREASTS PRN SORE/CRACKED NIPPLES) Lidocaine PF Inj 1% 30mL (Xylocaine PF Inj 1% 30mL) 30ML Local ASDIR PRN for episiotomy repair Mag Carb/Al Hydrox/AlgAcid Tab (Gaviscon Extra Strength Tab) 2TAB PO ASDIR PRN pre-op for Mag/Al/Simeth Oral Liquid (Maalox Max Oral Liquid) 30 ML PO Q4H PRN dyspepsia Magnesium Hydroxide Oral Liq (Milk Of Magnesia Oral Liquid) 30 ML PO daily PRN constipation (first line) Ariela/Mump/Rub Vaccine Inj (MMR II Vaccine Inj) 1 VIAL SubQ asdir (ONCE IF NON RUBELLA IMMUNE (SEND WITH DILUENT)) Methylergonovine Inj (Methergine Inj) 0.2 MG IM Q4H PRN hemorrage (DO NOT GIVE IF BP>140/90) Methylergonovine Inj (Methergine Inj) 0.2MG IM PACU ONCE X 1 doses PRN pp hemorrhage Metoclopramide Inj (Reglan Inj) 10MG IV ASDIR PRN pre-op for c-sect Mineral Oil Oral Liquid (Mineral Oil Oral Liquid) 30ML Topical ONCALL PRN topical lubrication Misoprostol Tab (CytoTEC Tab) 800 MCG Rectal ASDIR X 1 doses PRN for hemorrhage x 1 dose (ONCE) Misoprostol Tab (CytoTEC Tab) 800MCG Rectal PACU ONCE X 1 doses PRN pp hemorrhage Naloxone Inj (Narcan Inj) 0.4MG IV Q2M PRN resp rate <8/min call anesth Ondansetron Inj (Zofran Inj) 4 MG IV q8h PRN severe nausea and vomiting (If unable to take PO MAY GIVE IVP OVER NOT LESS THAN 30 S...) Ondansetron Inj (Zofran Inj) 4MG IV Q8H PRN nausea and vomiting Ondansetron Inj (Zofran Inj) 8MG IV Q8H PRN severe nausea and vomiting Oxytocin 30 Units/NS 503mL (Pitocin 30 Units/NS 503mL) 30UNITS ASDIRECTED IV ASDIR X 1 doses Oxytocin Inj (Pitocin Inj) 10 UNITS IM ASDIR X 1 doses PRN for bleeding x 1 dose Oxytocin Inj (Pitocin Inj) 30UNITS TITRATE IV ASDIR Phenylephrine Inj (Jason Synephrine Inj) 100MCG IV Q3M PRN see special instructions Promethazine Inj (Phenergan Inj) 25MG IV Q4H PRN nausea and vomiting Simethicone Chew Tab (Mylanta Gas Chew Tab) 160 MG PO PC HS PRN gas Sodium Chloride 0.9% (Nacl 0.9%) 10 ML IV ASDIR Sodium Cit/Cit Acid Oral Liq (Bicitra Oral Liquid) 30ML PO ASDIR PRN pre-op for c-sect TDaP Vaccine Inj (Adacel Vaccine Inj) 0.5 ML IM asdir PRN if criteria met (ONCE IF NEVER RECEIVED Td OR WAS ADMINISTERED 2 OR MORE...) Terbutaline Inj (Brethine Inj) 0.25MG SubQ ONCE X 1 doses PRN uterine tetany Witch Connie Medicated Pad (A.E.R Pads) 1 MED.PAD Topical asdir PRN hemorrhoids Zolpidem Tab (Ambien Tab) 5 MG PO BEDTIME PRN insomnia at 1343 ATTENTION *EDITS and/or ADDENDA must be made in Patient Keeper for this note. * * Edits and ammendments created in [employer] are not visible * * in Patient Keeper or the legal medical record ([facility]). * RPT #: [id number] END OF [id number] 13:42:00 [facility] ([facility]) OB Delivery Note REPORT #: [id number] REPORT STATUS: Signed DATE: 06/02/21 TIME: 1342 PATIENT: NIECY SIBLEY UNIT #: [id number] ROOM #: N.1204 BED: 1 : 98 AGE: 20 SEX: F ATTEND: Chi Constantino MD ADM AUTHOR: James Nobles MD ATTENTION *EDITS and/or ADDENDA must be made in Patient Keeper for this note. * * Edits and ammendments created in [employer] are not visible * * in Patient Keeper or the legal medical record ([facility]). * -- DELIVERY -- PERFORMED BY: James Nobles MD PROCEDURE START DATE: 2021-06-02 -- DATA -- ADDITIONAL COMMENTS: Patient was C/C/+2 pushing. Head was delivered in OA presentation over intact perineum, no nuchal cord. Rest of body followed without difficulty. Cord was clamp and cut, and baby girl was delivered to nursery for suctioning. Weight was 6#0, was 9/9. Placenta was delivered spontaneously, intact. No laceration was found. EBL was 200 cc. Signed in PatientKeeper by James Nobles MD on 06/02/21 at 13:43 at 1343 ATTENTION *EDITS and/or ADDENDA must be made in Patient Keeper for this note. * * Edits and ammendments created in [employer] are not visible * * in Patient Keeper or the legal medical record ([facility]). * RPT #: [id number] END OF [id number] 13:41:00 [facility] ([facility]) Med Order Sheet REPORT #: [id number] REPORT STATUS: Signed DATE: 06/02/21 TIME: 1341 PATIENT: NIECY SIBLEY UNIT #: [id number] ROOM #: N.1204 BED: 1 : 98 AGE: 20 SEX: F ATTEND: Chi Constantino MD ADM AUTHOR: James Nobles MD ATTENTION *EDITS and/or ADDENDA must be made in Patient Keeper for this note. * * Edits and ammendments created in [facility] are not visible * * in Patient Keeper or the legal medical record ([facility]). * Admission Medication Reconciliation -- CONTINUED / CHANGED HOME MEDICATIONS -- Home: Vitamin Tab ( Vitamin Tab) 1 TAB PO DAILY Hosp: Vitamin Tab ( Vitamin Tab) 1 TAB PO DAILY at 1341 ATTENTION *EDITS and/or ADDENDA must be made in Patient Keeper for this note. * * Edits and ammendments created in [facility] are not visible * * in Patient Keeper or the legal medical record ([facility]). * [facility] #: [id number] END OF [id number] 22:56:00 [facility] ([facility]) OB History Physical REPORT #: [id number] REPORT STATUS: Signed DATE: 06/01/21 TIME: 2255 PATIENT: NIECY SIBLEY UNIT #: [id number] ROOM #: BED: : 98 AGE: 20 SEX: F ATTEND: Chi Constantino MD ADM AUTHOR: Radha Ratliff MD ATTENTION *EDITS and/or ADDENDA must be made in Patient Keeper for this note. * * Edits and ammendments created in [employer] are not visible * * in Patient Keeper or the legal medical record (HPF). * -- HISTORY -- ADMISSION DATE: 2021-06-01 CHIEF COMPLAINT: "My water broke" HPI: 20 yo at 38.2 wga, pt of Dr. Constantino, presents with complaints of LoF. She has no other OB complaints. -PAST MEDICAL HISTORY- PAST MEDICAL HISTORY: Rh neg ASCUS HPV+ PAST SURGICAL HISTORY: Denies -LABS- BLOOD TYPE: O D RH TYPE: Negative ANTIBODY SCREEN: Negative VDRL/RPR: Non-reactive CHLAMYDIA: Negative GC: Negative GBS: Negative HBSAG: Negative HIV: Negative HPV: Positive RUBELLA: Immune GLUCOSE SCREEN: 109 GENETIC TESTING: Quad neg -- ALLERGIES/HOME MEDS -- ALLERGIES: No Known Allergies (UNKNOWN - Allergy) HOME MEDICATIONS: Vitamin Tab ( Vitamin Tab) 1 TAB PO DAILY -- SUBJECTIVE -- -REVIEW OF SYSTEMS- GENERAL: Negative for fever, malaise, fatigue. RESPIRATORY: Negative for dyspnea or wheeze. No cough. CARDIOVASCULAR: Negative for chest pain or palpitations. No extremity swelling. GASTROINTESTINAL: Negative for abdominal pain or nausea. No emesis. No diarrhea. GENITOURINARY: Negative for dysuria, frequency, or urgency. No gross hematuria. MUSCULOSKELETAL: Negative for joint stiffness, pain, or arthralgias. -- OBJECTIVE -- ADDITIONAL V/S: T: 98 BP: 123/78 P: 91 -EXAM- HEAD: Normocephalic, atraumatic. HEART: Regular rate LUNGS: Normal respiratory effort. PELVIC: Gravid UT, NT. Grossly ruptured. -RUPTURE OF MEMBRANES- Spontaneous TIME: 2000 COLOR: Clear AMOUNT: Large -BABY A EVALUATION- BASELINE: 130 VARIABILITY: Moderate 6-25 bpm ACCELERATIONS: 15 x 15 DECELERATIONS: None FHR CATEGORY: Category 1 -CERVICAL EXAM- DILATION: 4 EFFACEMENT: 50 % STATION: -3 -UTERINE ACTIVITY- MONITOR: [place] FREQUENCY (DESCRIPTION): Irregular -- ASSESSMENT AND PLAN -- GENERAL ASSESSMENT: 20 yo at 38.2 wga, pt of Dr. Constantino, admitted for term labor PROBLEMS: 1: Term A/P: Will admit patient at this time for management - Follow up admission labs - Pit - OB Anesthesia per patient request 2: Rh negative status during A/P: Rhogam PP 3: ASCUS with positive high risk HPV cervical A/P: Management per primary OB PP Signed in PatientKeeper by RADHA RATLIFF MD on 06/01/21 at 23:03 at 2303 ATTENTION *EDITS and/or ADDENDA must be made in Patient Keeper for this note. * * Edits and ammendments created in [employer] are not visible * * in Patient Keeper or the legal medical record ([facility]). * [facility] #: [id number] END OF REPORTHAIELYNW
[2024-07-24 23:04] LABS: Absolute Basophils 0.1 K/uL (0-0.5); Absolute Eosinophils 0.1 K/uL (0-0.5); Absolute Lymphocytes (CBC) 2.1 K/uL (0.7-4.9); Absolute Monocytes 0.7 K/uL (0.1-1.3); Basophils % 0.6 % (0-1.3); Eosinophils % 0.9 % (0-4.4); Hematocrit 32.7 % (36.0-45.0); Hemoglobin 11.6 g/dL (12.0-15.0); Lymphocytes % 23.7 % (15.3-44.8); MCH 29.7 pg (27.0-35.0); MCHC 35.4 g/dL (32.0-36.0); MCV 83.9 fL (80-100); MPV 9.2 fL (7.6-11.3); Monocytes % 8.2 % (3.3-12.3); Neutrophils % 66.6 % (41.7-73.7); Platelets 223 thou/uL (152-406); RBC Red Blood Cell Count 3.89 M/uL (3.86-4.86)
[2024-07-24] MEDS ORDERED: ACETAMINOPHEN 325 MG TABLET ONE (23:14)
[2024-07-24] MEDS ORDERED: NA CHLORIDE 0.9% 1,000 ML ONE (23:15)
[2024-07-24 23:26] LABS: Albumin 3.6 g/dL (3.4-5.0); Alkaline Phosphatase 64 U/L (45-117); Anion Gap 5.5 mEq/L (5.0-15.0); BUN Blood Urea Nitrogen 8 mg/dL (7-18); Bicarbonate 27 mEq/L (21-32); Bilirubin Total 0.2 mg/dL (0.2-1.0); Globulin 3.5 g/dL (2.3-3.5); Glomerular Filtration Rate 124 ml/min (=/>90); Glucose Level 94 mg/dL (74-106); Potassium 3.5 mEq/L (3.5-5.1); Protein, Total 7.1 g/dL (6.4-8.2); Sodium Level 136 mEq/L (136-145)
[2024-07-24 23:46] LABS: ALT/SGPT < 14 U/L (13-56); AST/SGOT < 10 U/L (15-37)
[2024-07-24 23:49] LABS: Influenza A Ag Negative; Influenza B Ag Negative; SARS-CoV-2 Antigen Rapid Res Negative (Negative)
--- NOTE | 2024-07-24 23:51 | EDPHYS ---
Physician Documentation [facility] Name: Niecy Sibley Age: 24 yrs Sex: Female : 2000 Arrival Date: 07/24/2024 Time: 21:34 Bed 19 Private MD: ED Physician Lise Lyles HPI: 07/24 22:45 This 24 yrs old Female presents to ER via Ambulatory with complaints of Neck Pain, sp3 >24Hrs Old, JAW NUMBNESS. 22:45 24-year-old female who is G5, now at 6 weeks presents with sore throat, sp3 left-sided jaw pain and neck pain for the last 1 week plus. She denies any prior history of lymphoma, thyroid pathology, or any other concerning process. She denies fever. She states she occasionally takes Tylenol for her symptoms. She is also on nitrofurantoin for UTI. She denies any headache, chest pain, shortness of breath, back pain, abdominal pain, vomiting, diarrhea, BLUING OVEN TENDER symptoms, rash, bleeding or any other signs or symptoms on ROS at this time.. 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 - Infectious Disease History:: Denies. - Social history:: Smoking status: Patient denies any tobacco usage or history of. Patient/guardian denies using alcohol, street drugs. ROS: 22:46 Constitutional: Negative for fever, chills, and weight loss, Eyes: Negative for injury, sp3 pain, redness, and discharge, ENT: Negative for injury, pain, and discharge, Cardiovascular: Negative for chest pain, palpitations, and edema, Respiratory: Negative for shortness of breath, cough, wheezing, and pleuritic chest pain, Abdomen/GI: Negative for abdominal pain, nausea, vomiting, diarrhea, and constipation, Back: Negative for injury and pain, MS/Extremity: Negative for injury and deformity, Skin: Negative for injury, rash, and discoloration, Neuro: Negative for headache, weakness, numbness, tingling, and seizure, Psych: Negative for depression, anxiety, suicide ideation, homicidal ideation, and hallucinations, Allergy/Immunology: Negative for hives, rash, and allergies, Endocrine: Negative for neck swelling, polydipsia, polyuria, polyphagia, and marked weight changes, Hematologic/Lymphatic: Negative for swollen nodes, abnormal bleeding, and unusual bruising, 22:46 All other systems are negative, Exam: 22:47 Constitutional: This is a well developed, well nourished patient who is awake, alert, sp3 and in no acute distress. Head/Face: Normocephalic, atraumatic. Eyes: Pupils equal round and reactive to light, extra-ocular motions intact. Lids and lashes normal. Conjunctiva and sclera are non-icteric and not injected. Cornea within normal limits. Periorbital areas with no swelling, redness, or edema. ENT: Nares patent. No nasal discharge, no septal abnormalities noted. External auditory canals are clear. Oropharynx with no redness, swelling, or masses, exudates, or evidence of obstruction, uvula midline. Mucous membranes moist. Chest/axilla: Normal chest wall appearance and motion. Nontender with no deformity. No lesions are appreciated. Cardiovascular: Regular rate and rhythm with a normal S1 and S2. No gallops, murmurs, or rubs. Normal PMI, no JVD. No pulse deficits. Respiratory: Lungs have equal breath sounds bilaterally, clear to auscultation and percussion. No rales, rhonchi or wheezes noted. No increased work of breathing, no retractions or nasal flaring. Abdomen/GI: Soft, non-tender, with normal bowel sounds. No distension or tympany. No guarding or rebound. No evidence of tenderness throughout. Back: No spinal tenderness. No costovertebral tenderness. Full range of motion. Skin: Warm, dry with normal turgor. Normal color with no rashes, no lesions, and no evidence of cellulitis. MS/ Extremity: Pulses equal, no cyanosis. Neurovascular intact. Full, normal range of motion. Neuro: Awake and alert, GCS 15, oriented to person, place, time, and situation. Cranial nerves II-XII grossly intact. Motor strength 5/5 in all extremities. Sensory grossly intact. Cerebellar exam normal. Normal gait. Psych: Awake, alert, with orientation to person, place and time. Behavior, mood, and affect are within normal limits. 22:47 Neck: Pain on left side of the neck on palpation over the SCM muscle. Possible lymph node palpated in that area as well. Pharyngeal exam normal and left TM also normal. No dental pathology noted., Vital Signs: 21:56 BP 130 / 99; Pulse 107; Resp 16 S; Temp 98.5(O); Pulse Ox 100% ; Weight 68.04 kg (R); lg3 Height 5 ft. 0 in. (R); Pain 9/10; 21:56 Body Mass Index 29.29 (68.04 kg, 152.4 cm) lg3 21:56 Pain Scale: Adult lg3 MDM: 21:51 Medical Screening Exam initiated cp 22:47 Data reviewed: vital signs, nurses notes, lab test result(s). ED course: 24-year-old sp3 female with PMH above with left-sided neck pain. Differential diagnosis includes musculoskeletal symptom, lymphadenopathy, viral illness, pharyngitis, COVID, flu, thyroid issue, among others. Will obtain general labs including TSH, swabs and administer IV fluids. Disposition pending workup and patient course.. 23:50 ED course: Full workup negative. Heart rate now lower. We will safely discharge patient sp3 home at this time.. 07/24 22:44 Order name: CBC with Diff; Complete Time: 23:49 sp3 07/24 22:44 Order name: CMP; Complete Time: 23:49 sp3 07/24 22:44 Order name: TSH; Complete Time: 23:49 sp3 07/24 22:44 Order name: Group A Streptococcus Rapid; Complete Time: 23:49 sp3 07/24 22:44 Order name: COVID-19 Ag + Flu A+B Ag; Complete Time: 23:49 sp3 07/24 23:53 Order name: Throat Culture EDCA 07/24 22:44 Order name: IV Saline Lock; Complete Time: 23:04 sp3 07/24 22:44 Order name: Labs collected and sent; Complete Time: 23:04 sp3 Administered Medications: 23:19 Drug: NS 0.9% IV 1000 ml IV at 1 bolus Per protocol; to be given as a bolus over 60 jb4 minutes Route: IV; Rate: 1 bolus; Site: right forearm; 07/25 00:13 Follow up: Response: No adverse reaction; IV Status: Completed infusion; IV Intake: jb4 1000ml 07/24 23:19 Drug: Acetaminophen PO 650 mg PO once Route: PO; jb4 07/25 00:13 Follow up: Response: No adverse reaction; Marked relief of symptoms jb4 Disposition Summary: 07/24/24 23:50 Discharge Ordered Notes: Location: Home sp3 Condition: Stable sp3 Diagnosis - Neck pain sp3 Followup: sp3 - With: Private Physician - When: Upon discharge from the Emergency Department - Reason: Continuance of care Discharge Instructions: - Discharge Summary Sheet sp3 - Acute Torticollis, Adult sp3 Forms: - Medication Reconciliation Form sp3 - Antibiotic Education sp3 - Prescription Opioid Use sp3 - Patient Portal Instructions sp3 - Leadership Thank You Letter sp3 Signatures: Dispatcher [employer] EDMS Lamin Colby PA PA cp Bryson, James, RN RN jb4 Dinorah Reilly RN RN lg3 Lise Lyles MD MD sp3 Corrections: (The following items were deleted from the chart) 07/24 22:44 22:44 CBC+H.LAB.BRZ ordered. EDMS EDMS 22:44 22:44 COMPREHENSIVE METABOLIC PANEL+C.LAB.BRZ ordered. EDMS EDMS 22:44 22:44 THYROID STIMULAT HORMONE+C.LAB.BRZ ordered. EDMS EDMS 22:44 22:44 Group A Streptococcus Rapid Sc+I.LAB.BRZ ordered. EDMS EDMS 22:44 22:44 COVID-19 Ag + Flu A+B Ag+I.LAB.BRZ ordered. EDMS EDMS
--- NOTE | 2024-07-24 23:51 | ER ---
Nurse's Notes [facility] Name: Niecy Sibley Age: 24 yrs Sex: Female : 2000 Arrival Date: 07/24/2024 Time: 21:34 Bed 19 Private MD: Diagnosis: Neck pain Presentation: 07/24 21:56 Chief complaint: Patient states: left sided neck/jaw pain 2 weeks and worsening. new lg3 onset numbness and left ear pain. on ABX for UTI. currently 6wks . Coronavirus screen: Client denies travel out of the [place] in the last 14 days. At this time, the client does not indicate any symptoms associated with coronavirus-19. Ebola Screen: No symptoms or risks identified at this time. Acute neurological deficit: none identified. Initial Sepsis Screen: Does the patient meet any 2 criteria? No. Patient's initial sepsis screen is negative. Does the patient have a suspected source of infection? No. Patient's initial sepsis screen is negative. Risk Assessment: Do you want to hurt yourself or someone else? Patient reports no desire to harm self or others. Onset of symptoms is unknown. 21:56 Method Of Arrival: Ambulatory lg3 21:56 Acuity: NORA 3 lg3 Triage Assessment: 21:58 General: Appears in no apparent distress. comfortable, Behavior is calm, cooperative. lg3 Pain: Complains of pain in left jaw, left neck. EENT: Reports pain when swallowing. Neuro: No deficits noted. Song Agitation-Sedation Scale (RASS): 0 - Alert and Calm Level of Consciousness is awake, alert, obeys commands, Oriented to person, place, time, situation. Cardiovascular: No deficits noted. Denies chest pain, shortness of breath, Capillary refill < 3 seconds Clubbing of nail beds is absent JVD is absent Patient's skin is warm and dry. Respiratory: No deficits noted. Airway is patent Respiratory effort is even, unlabored, Respiratory pattern is regular, symmetrical. GI: No deficits noted. No signs and/or symptoms were reported involving the gastrointestinal system. : No signs and/or symptoms were reported regarding the genitourinary system. Derm: No deficits noted. No signs and/or symptoms reported regarding the dermatologic system. Skin is intact, is healthy with good turgor, Skin is dry, Skin is normal, Skin temperature is warm. Musculoskeletal: Circulation, motion, and sensation intact. Range of motion: intact in all extremities, Reports pain in neck. MATERIALS TECH: 21:58 LMP 06/14/2024, unknown lg3 Historical: - Allergies: 21:58 No Known Allergies; lg3 - Home Meds: 21:58 unknown ABX [Active]; lg3 - PMHx: 21:58 ADHD; growth on cervix; lg3 - PSHx: 21:58 None; lg3 - Immunization history:: Adult Immunizations up to date. - Infectious Disease History:: Denies. - Social history:: Smoking status: Patient denies any tobacco usage or history of. Patient/guardian denies using alcohol, street drugs. Screenin:27 [facility] ED Fall Risk Assessment (Adult) History of falling in the last 3 months, jb4 including since admission No falls in past 3 months (0 pts) Confusion or Disorientation No (0 pts) Intoxicated or Sedated No (0 pts) Impaired Gait No (0 pts) Mobility Assist Device Used No (0 pt) Altered Elimination No (0 pt) Score/Fall Risk Level 0 - 2 = Low Risk Oriented to surroundings, Maintained a safe environment. Abuse screen: Denies threats or abuse. Nutritional screening: No deficits noted. Tuberculosis screening: No symptoms or risk factors identified. Assessment: 23:27 General: Appears in no apparent distress. comfortable, Behavior is calm, cooperative, jb4 appropriate for age. Pain: Complains of pain in neck Pain does not radiate. Pain currently is 9 out of 10 on a pain scale. Neuro: Level of Consciousness is awake, alert, obeys commands, Oriented to person, place, time, situation. Cardiovascular: Patient's skin is warm and dry. Respiratory: Airway is patent Respiratory effort is even, unlabored, Respiratory pattern is regular, symmetrical. Derm: Skin is intact, Skin is pink, warm \T\ dry. Musculoskeletal: Circulation, motion, and sensation intact. Range of motion: intact in all extremities. 07/25 00:07 Reassessment: Patient appears in no apparent distress at this time. Patient and/or jb4 family updated on plan of care and expected duration. Pain level reassessed. Patient is alert, oriented x 3, equal unlabored respirations, skin warm/dry/pink. Vital Signs: 07/24 21:56 BP 130 / 99; Pulse 107; Resp 16 S; Temp 98.5(O); Pulse Ox 100% ; Weight 68.04 kg (R); lg3 Height 5 ft. 0 in. (R); Pain 9/10; 21:56 Body Mass Index 29.29 (68.04 kg, 152.4 cm) lg3 21:56 Pain Scale: Adult lg3 ED Course: 21:34 Patient arrived in ED. jj6 21:44 Lamin Colby PA is PHCP. cp 21:44 Lise Lyles MD is Attending Physician. cp 21:58 Triage completed. lg3 21:58 Arm band placed on right wrist. lg3 23:04 COVID-19 Ag + Flu A+B Ag Sent. af3 23:04 Group A Streptococcus Rapid Sent. af3 23:04 TSH Sent. af3 23:05 CBC with Diff Sent. af3 23:05 CMP Sent. af3 23:05 Inserted saline lock: 20 gauge in right antecubital area, using aseptic technique. af3 Blood collected. Flushed with 10 mL NS. 23:05 Initial lab(s) drawn, by me, sent to lab. af3 23:27 Patient has correct armband on for positive identification. Bed in low position. Call jb4 light in reach. Side rails up X 1. Provided Education on: plan of care. 07/25 00:07 No provider procedures requiring assistance completed. IV discontinued, intact, jb4 bleeding controlled, No redness/swelling at site. Pressure dressing applied. Administered Medications: 07/24 23:19 Drug: NS 0.9% IV 1000 ml IV at 1 bolus Per protocol; to be given as a bolus over 60 jb4 minutes Route: IV; Rate: 1 bolus; Site: right forearm; 07/25 00:13 Follow up: Response: No adverse reaction; IV Status: Completed infusion; IV Intake: jb4 1000ml 07/24 23:19 Drug: Acetaminophen PO 650 mg PO once Route: PO; jb4 07/25 00:13 Follow up: Response: No adverse reaction; Marked relief of symptoms jb4 Medication: 07/24 23:27 VIS not applicable for this client. jb4 Intake: 07/25 00:13 IV: 1000ml; Total: 1000ml. jb4 Outcome: 07/24 23:50 Discharge ordered by . sp3 04/11 00:07 Discharged to home ambulatory, jb4 Condition: stable Discharge instructions given to patient, Instructed on discharge instructions, follow up and referral plans. Demonstrated understanding of instructions, follow-up care, 00:14 Patient left the ED. jb4 Signatures: Lamin Colby PA PA cp Bryson, James RN RN jb4 Dinorah Reilly RN RN lg3 Lise Lyles MD MD sp3 Joie [id number] Celina [place] af3 Corrections: (The following items were deleted from the chart) 07/24 22:00 21:56 Chief complaint: Patient states: left sided neck/jaw pain 2 weeks and worsening. lg3 new onset numbness and left ear pain lg3
[2024-07-25 01:21] VITALS: BP 130/99; TEMP 98.5; O2SAT 100
== END 2024-07-25 00:14 | disposition home or self-care (01) ==
LOC: ER 21:34
DX: O26.891 Other specified pregnancy related conditions, first trimester (principal); Z3A.01 Less than 8 weeks gestation of pregnancy; Z11.52 Encounter for screening for COVID-19
CPT/HCPCS: 87070; 85025; 36415; 84443; 80053; 96360; 99284; 87428; J7030